=== PATIENT | female | born 1935 | race Caucasian/White ===

== ENCOUNTER → 2016-10-25 | Outpatient (CLI) | payer MEDICARE ==
[2016-10-25 10:10] LABS: ALANINE AMINOTRANSFERASE 42 U/L (9-52); ALBUMIN 3.9 g/dL (3.5-5.0); ALKALINE PHOSPHATASE 111 U/L (38-126); ANION GAP 10 (5-19); ASPARTATE AMINO TRANSFERASE 47 U/L (14-36); BILIRUBIN,TOTAL 1.1 mg/dL (0.2-1.3); BLOOD UREA NITROGEN 18 mg/dL (7-20); CALCIUM 9.7 mg/dL (8.4-10.2); CARBON DIOXIDE 29 mmol/L (22-30); CHLORIDE 102 mmol/L (98-107); CHOLESTEROL 121.54 mg/dL (0-200); CREATININE RESULT 1.03 mg/dL (0.52-1.25); Direct HDL 47 mg/dL (>40); GLUCOSE 110 mg/dL (75-110); POTASSIUM 4.3 mmol/L (3.6-5.0); SODIUM 140.8 mmol/L (137-145); TOTAL PROTEIN 6.9 g/dL (6.3-8.2); TRIGLYCERIDES 155 mg/dL (<150)
[2016-10-25 10:21] LABS: DIRECT LDL 46 mg/dL (<100)
== END ==
LOC: OD 08:38
PROVIDERS: ATTEND Internal Medicine Cardiovascular Disease
DX: E78.00 Pure hypercholesterolemia, unspecified (principal); Z79.899 Other long term (current) drug therapy
CPT/HCPCS: 36415; 80048; 80061; 80076; 84443

== ENCOUNTER → 2016-11-18 | Outpatient (CLI) | payer MEDICARE | LOC: RAD 10:59 | PROVIDERS: ATTEND Internal Medicine Gastroenterology | DX: R14.0 Abdominal distension (gaseous) (principal); R10.9 Unspecified abdominal pain | CPT/HCPCS: 74000 ==

== ENCOUNTER → 2016-11-24 | Outpatient (CLI) | payer MEDICARE | LOC: RAD 12:39 | PROVIDERS: ATTEND Internal Medicine Gastroenterology | DX: R14.0 Abdominal distension (gaseous) (principal); R10.33 Periumbilical pain; R10.12 Left upper quadrant pain; K52.9 Noninfective gastroenteritis and colitis, unspecified | CPT/HCPCS: 74177; 82565 ==

== ENCOUNTER → 2016-12-12 | Outpatient (CLI) | payer MEDICARE ==
[2016-12-12 12:25] LABS: ABSOLUTE BASOPHILS # (AUTO) 0.1 10^3/uL (0.0-0.2); ABSOLUTE EOSINOPHILS # (AUTO) 0.4 10^3/uL (0.0-0.6); ABSOLUTE LYMPHOCYTES (AUTO) 0.8 10^3/uL (0.5-4.7); ABSOLUTE MONOCYTES (AUTO) 0.3 10^3/uL (0.1-1.4); ABSOLUTE NEUT (AUTO) 2.6 10^3/uL (1.7-8.2); BASOPHILS % (AUTO) 1.8 % (0-2); EOSINOPHILS % (AUTO) 9.9 % (0-6); HEMATOCRIT 34.5 % (36.0-47.0); HEMOGLOBIN 11.8 g/dL (12.0-15.5); HGB HCT DIFFERENCE 0.9; LYMPHOCYTES % (AUTO) 19.5 % (13-45); MEAN CORPUSCULAR HEMOGLOBIN 31.1 pg (27.0-33.4); MEAN CORPUSCULAR HGB CONC 34.1 g/dL (32.0-36.0); MEAN CORPUSCULAR VOLUME 91 fl (80-97); MONOCYTES % (AUTO) 6.2 % (3-13); RED BLOOD COUNT 3.78 10^6/uL (3.72-5.28); RED CELL DISTRIBUTION WIDTH 14.3 % (11.5-14.0); SEGMENTED NEUTROPHILS % (AUTO) 62.6 % (42-78); WHITE BLOOD COUNT 4.2 10^3/uL (4.0-10.5)
[2016-12-12 12:56] LABS: ALANINE AMINOTRANSFERASE 43 U/L (9-52); ALBUMIN 3.9 g/dL (3.5-5.0); ALKALINE PHOSPHATASE 109 U/L (38-126); ANION GAP 14 (5-19); ASPARTATE AMINO TRANSFERASE 48 U/L (14-36); BILIRUBIN,DIRECT 0.2 mg/dL (0.0-0.4); BILIRUBIN,TOTAL 1.2 mg/dL (0.2-1.3); BLOOD UREA NITROGEN 21 mg/dL (7-20); CALCIUM 9.2 mg/dL (8.4-10.2); CARBON DIOXIDE 24 mmol/L (22-30); CHLORIDE 102 mmol/L (98-107); CREATININE RESULT 0.91 mg/dL (0.52-1.25); GLUCOSE 249 mg/dL (75-110); POTASSIUM 4.1 mmol/L (3.6-5.0); SODIUM 140.2 mmol/L (137-145); TOTAL PROTEIN 6.6 g/dL (6.3-8.2)
== END ==
LOC: OD 10:56
PROVIDERS: ATTEND Family Medicine
DX: R73.9 Hyperglycemia, unspecified (principal); Z79.899 Other long term (current) drug therapy; Z79.82 Long term (current) use of aspirin
CPT/HCPCS: 36415; 80053; 83036; 84443; 85025

== ENCOUNTER 2016-12-22 19:23 | Emergency (ER) | payer MEDICARE ==
--- NOTE | 2016-12-22 20:28 | ER Document Report ---
ED General - General Chief Complaint: Abdominal Pain Stated Complaint: ABDOMINAL PAIN Time seen by provider: 20:27 Mode of Arrival: Ambulatory Information source: Patient TRAVEL OUTSIDE OF THE [place] IN LAST 30 DAYS: No - HPI Notes: Patient is a 81-year-old female history of irritable bowel syndrome constipation predominant hypertension hypercholesterolemia and glaucoma, status post PR 2006 coronary bypass surgery 2009 and cholecystectomy 2014 presents with report that she had recent cough congestion for the past week and was started upon cefuroxime, but she has a allergy to cephalosporins. The patient states from her irritable bowel syndrome she has chronic constipation but had 1 loose bowel movement after taking the cefuroxime and had similar upper abdominal crampy pain she's had in the past. She also reports some associated nausea but denies any vomiting. She reports no chest pain. Patient reports no bloody bowel movement, and she's only had the one single loose bowel movement. Patient had a negative CT scan of the abdomen and pelvis with the exception of some constipation on 11/24/16. Patient denies chest pain, SOB, fevers. - Related Data Allergies/Adverse Reactions: JUDI Inhibitors Allergy (Verified 12/22/16 20:12) hydromorphone [From Dilaudid] Allergy (Verified 12/22/16 20:12) metformin Allergy (Verified 12/22/16 20:12) Past Medical History - General Information source: Patient - Social History Smoking Status: Never Smoker Frequency of alcohol use: None Drug Abuse: None Lives with: Family Family History: Reviewed & Not Pertinent Review of Systems - Review of Systems Notes: REVIEW OF SYSTEMS: CONSTITUTIONAL : Denies fever, chills, or sweats. EENT: Denies eye, ear, throat, or mouth pain or symptoms. Denies throat, tongue, or mouth swelling or difficulty swallowing. Patient does report some upper congestion. CARDIOVASCULAR: Denies chest pain. Denies palpitations or racing or irregular heart beat. Denies ankle edema. RESPIRATORY: Denies shortness of breath, difficulty breathing, or wheezing. GASTROINTESTINAL: Denies distention. Denies vomiting. Denies blood in vomitus, stools, or per rectum. Denies black, tarry stools. Patient usually has chronic constipation. GENITOURINARY: Denies difficulty urinating, painful urination, burning, frequency, blood in urine, or discharge. FEMALE GENITOURINARY: Denies vaginal bleeding, heavy or abnormal periods, irregular periods. Denies vaginal discharge or odor. MUSCULOSKELETAL: Denies back or neck pain or stiffness. Denies joint pain or swelling. SKIN: Denies rash, lesions or sores. HEMATOLOGIC : Denies easy bruising or bleeding. LYMPHATIC: Denies swollen, enlarged glands. NEUROLOGICAL: Denies confusion or altered mental status. Denies passing out or loss of consciousness. Denies dizziness or lightheadedness. Denies headache. Denies weakness or paralysis or loss of use of either side. Denies problems with gait or speech. Denies sensory loss, numbness, or tingling. Denies seizures. PSYCHIATRIC: Denies anxiety or stress. Denies depression, suicidal ideation, or homicidal ideation. ALL OTHER SYSTEMS REVIEWED AND NEGATIVE. Dictation was performed using [employer] voice recognition software Physical Exam - Vital signs Vitals: BP 188/87 H 12/22/16 20:21 - Notes Notes: PHYSICAL EXAMINATION: GENERAL: Well-appearing, well-nourished and in no acute distress. HEAD: Atraumatic, normocephalic. EYES: Pupils equal round and reactive to light, extraocular movements intact, conjunctiva are normal. ENT: Nares patent, oropharynx clear without exudates. Moist mucous membranes. NECK: Normal range of motion, supple without lymphadenopathy LUNGS: Breath sounds coarse bilaterally and equal. No rales or rhonchi. Scant mid lung field wheeze noted. HEART: Regular rate and rhythm 1/6 systolic ejection murmur best auscultated over the apex. ABDOMEN: Soft, nontender, nondistended abdomen. No guarding, no rebound. No masses appreciated. Female : deferred Musculoskeletal: Normal range of motion, trace lower extremity edema. Negative Homans. No palpable cord. No cyanosis. NEUROLOGICAL: Cranial nerves grossly intact. Normal speech, normal gait. Normal sensory, motor exams PSYCH: Normal mood, normal affect. SKIN: Warm, Dry, normal turgor, no rashes or lesions noted. Course - Re-evaluation Re-evalutation: 12/22/16 23:25 After Zofran and morphine and Bentyl, the patient had relief for abdominal pain. On repeat exam there is no significant discomfort. After DuoNeb, repeat exam showed no significant wheezing. Patient will be given an albuterol metered-dose inhaler to take home with her. Given the reaction to multiple antibiotics, there is no current reason for the patient to be on a antibiotic with a negative chest x-ray, normal white blood cell count and no fever. We'll stop the cefuroxime. Likewise, given the interaction of Cipro with her amiodarone, this would also not be a good choice. This was also noted by the pharmacy that refused to fill the prescription that her regular practitioner had written previously. Given that the patient recently started Linzess, this will also be discontinued. No suggestion for bowel obstruction or pneumonia or pancreatitis or hepatitis or GI bleed or significant electrolyte imbalance or cardiac ischemia or CHF. 12/23/16 00:17 - Vital Signs Vital signs: Temp Pulse Resp BP Pulse Ox 12 204/76 H 98 12/22/16 20:30 12/22/16 20:30 12/22/16 20:30 - Laboratory Result Diagrams: 12/22/16 20:27 12/22/16 20:27 Laboratory results interpreted by me: 12/22/16 12/22/16 12/22/16 20:27 20:27 21:20 Eosinophils % 11.5 H Absolute Eosinophils 0.7 H BUN 27 H Est GFR ( Amer) 52 L Est GFR (Non-Af Amer) 43 L Glucose 137 H Direct Bilirubin 0.5 H AST 55 H Alkaline Phosphatase 138 H Ur Leukocyte Esterase LARGE H - EKG Interpretation by Me EKG shows normal: Sinus rhythm Rate: Bradycardia Additional EKG results interpreted by me: 12/22/16 20:56 EKG as interpreted by de showed sinus bradycardia heart rate of 50 with left ventricular hypertrophy. There is no gross evidence for acute PR or ischemia there was no old EKG available for comparison. Discharge - Discharge Clinical Impression: Upper respiratory infection Qualifiers: URI type: unspecified URI Qualified Code(s): J06.9 - Acute upper respiratory infection, unspecified IBS (irritable bowel syndrome) Qualifiers: Irritable bowel syndrome type: with constipation Qualified Code(s): K58.1 - Irritable bowel syndrome with constipation Abdominal pain Qualifiers: Abdominal location: epigastric Qualified Code(s): R10.13 - Epigastric pain COPD (chronic obstructive pulmonary disease) Qualifiers: COPD type: unspecified COPD Qualified Code(s): J44.9 - Chronic obstructive pulmonary disease, unspecified Condition: Stable Disposition: HOME, SELF-CARE Instructions: Upper Respiratory Illness ([facility]), Abdominal Pain ([facility]), Irritable Bowel Syndrome ([facility]), Chronic Obstructive Lung Disease ([facility]) Additional Instructions: Return to emergency Department in case of severe pain, fever, vomiting. Stop Linzess, and do not consider restarting it until at least 2 weeks later. Do not start taking Zoloft. Stop cefuroxime. [place] diet. Drink plenty of fluids. Prescriptions: Dicyclomine HCl [Bentyl 10 mg Capsule] 10 mg PO Q6HP PRN #20 capsule PRN Reason: Albuterol Sulfate [Proair HFA Inhalation Aerosol 8.5 gm MDI] 2 puff IH Q4H PRN # 1 mdi PRN Reason: Referrals: IRVING CAMPBELL MD [Primary Care Provider] - Follow up as needed
[2016-12-22] MEDS ORDERED: DICYCLOMINE HCL 10 MG CAPSULE PO ONE (20:53)
[2016-12-22] MEDS ORDERED: MORPHINE SULFATE 10 MG/ML INJ IV ONE (20:53)
[2016-12-22] MEDS ORDERED: ONDANSETRON HCL INJ/PF 4 MG/2 ML SDV IV ONE (20:53)
[2016-12-22] MEDS ORDERED: FAMOTIDINE INJ/PF 20 MG/2 ML SDV IV ONE (20:53)
[2016-12-22 21:01] LABS: ABSOLUTE EOSINOPHILS # (AUTO) 0.7 10^3/uL (0.0-0.6); ABSOLUTE LYMPHOCYTES (AUTO) 1.6 10^3/uL (0.5-4.7); ABSOLUTE MONOCYTES (AUTO) 0.5 10^3/uL (0.1-1.4); BASOPHILS % (AUTO) 0.7 % (0-2); EOSINOPHILS % (AUTO) 11.5 % (0-6); HEMOGLOBIN 12.8 g/dL (12.0-15.5); HGB HCT DIFFERENCE 0.4; LYMPHOCYTES % (AUTO) 27.7 % (13-45); MEAN CORPUSCULAR HEMOGLOBIN 30.7 pg (27.0-33.4); MEAN CORPUSCULAR HGB CONC 33.7 g/dL (32.0-36.0); MEAN CORPUSCULAR VOLUME 91 fl (80-97); MONOCYTES % (AUTO) 8.9 % (3-13); RED BLOOD COUNT 4.16 10^6/uL (3.72-5.28); RED CELL DISTRIBUTION WIDTH 13.9 % (11.5-14.0); SEGMENTED NEUTROPHILS % (AUTO) 51.2 % (42-78); WHITE BLOOD COUNT 5.8 10^3/uL (4.0-10.5)
[2016-12-22] MEDS ORDERED: IPRATROPIUM/ALBUTEROL 0.5-2.5 MG/3 ML AMPUL NEB ONE (21:03)
[2016-12-22 21:18] LABS: ALANINE AMINOTRANSFERASE 52 U/L (9-52); ALBUMIN 4.2 g/dL (3.5-5.0); ALKALINE PHOSPHATASE 138 U/L (38-126); ANION GAP 15 (5-19); ASPARTATE AMINO TRANSFERASE 55 U/L (14-36); BILIRUBIN,DIRECT 0.5 mg/dL (0.0-0.4); BILIRUBIN,TOTAL 1.2 mg/dL (0.2-1.3); BLOOD UREA NITROGEN 27 mg/dL (7-20); CALCIUM 9.6 mg/dL (8.4-10.2); CARBON DIOXIDE 26 mmol/L (22-30); CHLORIDE 99 mmol/L (98-107); GLUCOSE 137 mg/dL (75-110); LIPASE 268.5 U/L (23-300); POTASSIUM 4.4 mmol/L (3.6-5.0); SODIUM 140.4 mmol/L (137-145); TOTAL PROTEIN 7.7 g/dL (6.3-8.2)
[2016-12-22 22:00] LABS: APPEARANCE,URINE SLIGHTLY-CLOUDY; BILIRUBIN,URINE NEGATIVE (NEGATIVE); GLUCOSE, URINE NEGATIVE (NEGATIVE); KETONES,URINE NEGATIVE (NEGATIVE); LEUKOCYTE ESTERASE,URINE LARGE (NEGATIVE); NITRITE,URINE NEGATIVE (NEGATIVE); PROTEIN,URINE NEGATIVE (NEGATIVE); URINE SPECIFIC GRAVITY 1.009; UROBILINOGEN,URINE NEGATIVE mg/dL (<2.0)
[2016-12-22] MEDS ORDERED: ALBUTEROL SULFATE HFA (90 MCG/PUFF) 8 GM MDI (1 MDI/ER DISP) IH PRN (23:39)
[2016-12-23 00:30] VITALS: BP 152/90
--- NOTE | 2016-12-23 09:40 | EKG REPORT ---
SEVERITY:- ABNORMAL ECG - SINUS RHYTHM LEFT VENTRICULAR HYPERTROPHY : Confirmed by: Soren Colon 23-Dec-2016 09:39:05
== END 2016-12-23 00:30 | disposition home or self-care (01) ==
LOC: ER 19:23
DX: J06.9 Acute upper respiratory infection, unspecified (principal); K58.1 Irritable bowel syndrome with constipation; R10.13 Epigastric pain; J44.9 Chronic obstructive pulmonary disease, unspecified; R10.9 Unspecified abdominal pain; I10 Essential (primary) hypertension; E78.00 Pure hypercholesterolemia, unspecified; I25.2 Old myocardial infarction; H40.9 Unspecified glaucoma
CPT/HCPCS: 93005; 94640; 99284; 96374; 96375; 36415; 87086; 83690; 85025; 80053; 81001; 84484; 83880; 74022; 93010; A9270 ×2; J2270; J2405; S0028; J3490; J7620

== ENCOUNTER → 2017-01-02 | Outpatient (CLI) | payer MEDICARE ==
[2017-01-02 13:16] LABS: FOLATE > 20.00 ng/mL (>2.76)
== END ==
LOC: OD 10:33
PROVIDERS: ATTEND Family Medicine
DX: D64.9 Anemia, unspecified (principal); D55.9 Anemia due to enzyme disorder, unspecified
CPT/HCPCS: 36415; 82306; 82607; 82728; 82746; 83540; 83550

== ENCOUNTER 2017-01-15 15:32 | Emergency (ER) | payer MEDICARE ==
--- NOTE | 2017-01-15 16:57 | ER Document Report ---
ED Medical Screen (RME) - General Chief Complaint: Abdominal Pain Stated Complaint: ABDOMINAL PAIN Time Seen by Provider: 01/15/17 16:54 Notes: The patient is an 81-year-old female history of irritable bowel syndrome constipation predominant, hypertension, hypercholesterolemia and glaucoma, status post DC 2006 coronary bypass surgery 2009 and cholecystectomy 2014, 2 days of mid-epigastric pain and suprapubic pain in a band-like distribution that worsened this morning. PE: Epigastric and suprapubic tenderness. NAD. I have greeted and performed a rapid initial assessment of this patient. A comprehensive ED assessment and evaluation of the patient, analysis of test results and completion of the medical decision making process will be conducted by additional ED providers. TRAVEL OUTSIDE OF THE [place] IN LAST 30 DAYS: No - Related Data Allergies/Adverse Reactions: JUDI Inhibitors Allergy (Verified 01/15/17 15:56) hydromorphone [From Dilaudid] Allergy (Verified 01/15/17 15:56) metformin Allergy (Verified 01/15/17 15:56) Past Medical History Renal/ Medical History: Denies: Hx Peritoneal Dialysis Physical Exam - Vital signs Vitals: Temp Pulse Resp BP Pulse Ox 97.9 F 50 L 19 197/63 H 98 01/15/17 15:56 01/15/17 15:56 01/15/17 15:56 01/15/17 15:56 01/15/17 15:56 Course - Vital Signs Vital signs: Temp Pulse Resp BP Pulse Ox 97.9 F 50 L 19 197/63 H 98 01/15/17 15:56 01/15/17 15:56 01/15/17 15:56 01/15/17 15:56 01/15/17 15:56
[2017-01-15 17:42] LABS: APPEARANCE,URINE SLIGHTLY-CLOUDY; BILIRUBIN,URINE NEGATIVE (NEGATIVE); GLUCOSE, URINE NEGATIVE (NEGATIVE); KETONES,URINE NEGATIVE (NEGATIVE); LEUKOCYTE ESTERASE,URINE LARGE (NEGATIVE); NITRITE,URINE NEGATIVE (NEGATIVE); PROTEIN,URINE NEGATIVE (NEGATIVE); URINE SPECIFIC GRAVITY 1.005; UROBILINOGEN,URINE NEGATIVE mg/dL (<2.0)
[2017-01-15] MEDS ORDERED: CEFTRIAXONE 1 GM/D5W RTU 50 ML IV ONE (17:58)
[2017-01-15 18:38] LABS: ABSOLUTE EOSINOPHILS # (AUTO) 0.3 10^3/uL (0.0-0.6); ABSOLUTE MONOCYTES (AUTO) 0.5 10^3/uL (0.1-1.4); ABSOLUTE NEUT (AUTO) 3.3 10^3/uL (1.7-8.2); BASOPHILS % (AUTO) 0.9 % (0-2); EOSINOPHILS % (AUTO) 6.4 % (0-6); HEMOGLOBIN 12.8 g/dL (12.0-15.5); HGB HCT DIFFERENCE 0.4; LYMPHOCYTES % (AUTO) 18.8 % (13-45); MEAN CORPUSCULAR HEMOGLOBIN 30.7 pg (27.0-33.4); MEAN CORPUSCULAR HGB CONC 33.8 g/dL (32.0-36.0); MEAN CORPUSCULAR VOLUME 91 fl (80-97); MONOCYTES % (AUTO) 10.3 % (3-13); RED BLOOD COUNT 4.18 10^6/uL (3.72-5.28); RED CELL DISTRIBUTION WIDTH 14.2 % (11.5-14.0); SEGMENTED NEUTROPHILS % (AUTO) 63.6 % (42-78); WHITE BLOOD COUNT 5.2 10^3/uL (4.0-10.5)
[2017-01-15 18:49] LABS: ALANINE AMINOTRANSFERASE 54 U/L (9-52); ALBUMIN 4.4 g/dL (3.5-5.0); ALKALINE PHOSPHATASE 122 U/L (38-126); ANION GAP 9 (5-19); ASPARTATE AMINO TRANSFERASE 68 U/L (14-36); BILIRUBIN,DIRECT 0.5 mg/dL (0.0-0.4); BILIRUBIN,TOTAL 1.4 mg/dL (0.2-1.3); BLOOD UREA NITROGEN 18 mg/dL (7-20); CALCIUM 9.9 mg/dL (8.4-10.2); CARBON DIOXIDE 28 mmol/L (22-30); CHLORIDE 102 mmol/L (98-107); CREATINE KINASE 191 U/L (30-135); CREATININE RESULT 0.99 mg/dL (0.52-1.25); GLUCOSE 119 mg/dL (75-110); LIPASE 158.6 U/L (23-300); POTASSIUM 4.9 mmol/L (3.6-5.0); TOTAL PROTEIN 7.8 g/dL (6.3-8.2)
--- NOTE | 2017-01-15 20:27 | ER Document Report ---
ED GI/ - General Mode of Arrival: Ambulatory Information source: Patient, Relative - daughter TRAVEL OUTSIDE OF THE [place] IN LAST 30 DAYS: No - HPI Patient complains to provider of: Abdominal pain Associated symptoms: Other - See above <JANINA MARTINEZ - Last Filed: 01/15/17 20:28> <AKIRAJOSUE BERNARDO - Last Filed: 01/15/17 22:49> - General Chief Complaint: Abdominal Pain Stated Complaint: ABDOMINAL PAIN Time Seen by Provider: 01/15/17 16:54 Notes: Patient is an 81 year old female, with a past medical history including IBS and cholecystectomy, who presents to the emergency department complaining of upper abdominal pain onset yesterday. Patient states that she was seen in the ED last month for similar complaints from antibiotics and was told to stop taking them and start on Linzess a week later. Patient reports the Linzess hasn't caused her to be sick or helped her pain which has been constant since yesterday afternoon. Patient also complains of back pain. Patient denies vomiting, diarrhea, dark stools, blood in stool, chest pain, and difficulty breathing. Patient takes Asa daily. (JANINA MARTINEZ) - Related Data Allergies/Adverse Reactions: JUDI Inhibitors Allergy (Verified 01/15/17 15:56) hydromorphone [From Dilaudid] Allergy (Verified 01/15/17 15:56) metformin Allergy (Verified 01/15/17 15:56) Past Medical History - General Information source: Patient - Social History Smoking Status: Unknown if Ever Smoked Family History: Reviewed & Not Pertinent - Past Medical History Cardiac Medical History: Reports: Hx Heart Attack, Hx Hypercholesterolemia, Hx Hypertension GI Medical History: Reports: Hx Gastroesophageal Reflux Disease, Hx Irritable Bowel Psychiatric Medical History: Reports: Hx Depression - anxiety Past Surgical History: Reports: Hx Cardiac Surgery - double bypass, 2 stents, Hx Cholecystectomy <JANINA MARTINEZ - Last Filed: 01/15/17 20:28> Review of Systems - Review of Systems Constitutional: No symptoms reported EENT: No symptoms reported Cardiovascular: No symptoms reported. denies: Chest pain Respiratory: No symptoms reported. denies: Other - difficulty breathing Gastrointestinal: See HPI, Abdominal pain. denies: Diarrhea, Nausea, Vomiting Genitourinary: No symptoms reported Female Genitourinary: No symptoms reported Musculoskeletal: See HPI, Back pain Skin: No symptoms reported Hematologic/Lymphatic: No symptoms reported Neurological/Psychological: No symptoms reported -: Yes All other systems reviewed and negative <JNAINA MARTINEZ - Last Filed: 01/15/17 20:28> Physical Exam - Vital signs Interpretation: Normal - General General appearance: Appears well, Alert - HEENT Head: Normocephalic, Atraumatic - Respiratory Respiratory status: No respiratory distress Chest status: Nontender Breath sounds: Normal Chest palpation: Normal - Cardiovascular Rhythm: Regular Heart sounds: Normal auscultation Murmur: No - Abdominal Inspection: Normal Distension: No distension Bowel sounds: Normal Tenderness: Tender - Mild epigastric tenderness to palpation Organomegaly: No organomegaly - Back Back: Normal, Nontender - Extremities General upper extremity: Normal inspection General lower extremity: Normal inspection - Neurological Neuro grossly intact: Yes Cognition: Normal Orientation: AAOx4 Sherri Coma Scale Eye Opening: Spontaneous [place] Coma Scale Verbal: Oriented [place] Coma Scale Motor: Obeys Commands Sherri Coma Scale Total: 15 Speech: Normal - Psychological Associated symptoms: Normal affect, Normal mood - Skin Skin Temperature: Warm Skin Moisture: Dry Skin Color: Normal <JANINA MARTINEZ - Last Filed: 01/15/17 20:28> Course - Laboratory Result Diagrams: 01/15/17 18:10 01/15/17 18:10 <JANINA MARTINEZ - Last Filed: 01/15/17 20:28> - Laboratory Result Diagrams: 01/15/17 18:10 01/15/17 18:10 - Diagnostic Test Radiology reviewed: Image reviewed, Reports reviewed <JOSUE CHAMPION - Last Filed: 01/15/17 22:49> - Re-evaluation Re-evalutation: 01/15/17 22:32 Patient is an 80-year-old female who comes in with epigastric pain. Patient has a history of abdominal pain and has been on Linzess recently. Dose was increased about a week ago. patient with no acute findings on blood work. I have reviewed the CT. I do not see any area of pre-fluid. Hemoglobin is stable. Vitals have been stable. Patient feels better after Carafate and Prevacid. She has these medications at home but had not taken any today. Patient feels better at this time. She is to take her medications as prescribed and follow-up with her Crankshaft Grinder, Dr. Crowley. And family understand and agree with plan. Return if worsening or concerning symptoms. Stable for discharge. (JOSUE CHAMPION) - Vital Signs Vital signs: Temp Pulse Resp BP Pulse Ox 97.9 F 50 L 19 197/63 H 98 01/15/17 15:56 01/15/17 15:56 01/15/17 15:56 01/15/17 15:56 01/15/17 15:56 - Laboratory Laboratory results interpreted by me: 01/15/17 01/15/17 01/15/17 17:15 18:10 18:10 RDW 14.2 H Eosinophils % 6.4 H Est GFR (Non-Af Amer) 54 L Glucose 119 H Total Bilirubin 1.4 H Direct Bilirubin 0.5 H AST 68 H ALT 54 H Creatine Kinase 191 H Ur Leukocyte Esterase LARGE H Discharge <JANINA MARTINEZ - Last Filed: 01/15/17 20:28> <JOSUE CHAMPION - Last Filed: 01/15/17 22:49> - Discharge Clinical Impression: Epigastric pain, Bradycardia Condition: Stable Disposition: HOME, SELF-CARE Instructions: Evaluation of Upper Abdominal Pain ([facility]) Additional Instructions: Please follow-up with your soccer ball assembler regarding the pain you are having. Please make sure you are taking Carafate as needed. Follow-up with her doctor regarding her slow heart rate although this does not seem to be causing any problems today. Referrals: IRVING CAMPBELL MD [Primary Care Provider] - Follow up tomorrow Scribe Attestation: 01/15/17 22:49 I personally performed the services described in the documentation, reviewed and edited the documentation which was dictated to the scribe in my presence, and it accurately records my words and actions. (JOSUE CHAMPION) Scribe Documentation - Scribe Written by Jocelyn:: jocelyn Hall, 01/15/172033 acting as scribe for :: Akira <JANINA MARTINEZ - Last Filed: 01/15/17 20:28>
[2017-01-15] MEDS ORDERED: SUCRALFATE 1 GM TABLET PO ONE (21:07)
[2017-01-15] MEDS ORDERED: LANSOPRAZOLE 30 MG TAB.RAP.DR PO ONE (21:08)
[2017-01-15 23:25] VITALS: BP 183/70
--- NOTE | 2017-01-16 09:01 | EKG REPORT ---
SEVERITY:- ABNORMAL ECG - JUNCTIONAL ESCAPE RHYTHM NONSPECIFIC ST-T CHANGES ANTEROLATERAL LEADS : Confirmed by: Abraham Mann MD 16-Jan-2017 09:01:00
== END 2017-01-15 23:25 | disposition home or self-care (01) ==
LOC: ER 15:32
DX: R10.13 Epigastric pain (principal); R00.1 Bradycardia, unspecified; K58.9 Irritable bowel syndrome, unspecified
CPT/HCPCS: 93005; 99284; 96365; 36415; 87086; 82550; 83690; 85025; 87088; 80053; 81001; 84484; 74177; 93010; A9270 ×2; J0696

== ENCOUNTER 2017-01-26 01:35 | Emergency (ER) | payer MEDICARE ==
--- NOTE | 2017-01-26 02:42 | ER Document Report ---
ED GI/ - General Chief Complaint: Abdominal Pain Stated Complaint: ABDOMINAL PAIN Time Seen by Provider: 01/26/17 02:05 Mode of Arrival: Ambulatory Information source: Patient, Relative - daughter Notes: 81 yo female's 3rd visit this month for upper abdominal pain all the way across. This episode started monday morning sharp/constate pain, bloated. Recent dx. of IBS with constipation dr. suarez. EGD in [place] 1 year ago for same symptoms resolved after stopping lexapro. Upper abdominal pain ongoing for years, cholecystectomy did not help. Yesterday tried carafate and bentyl 3 times e and mon, had 3 BM's yesterday after MOM monday night. Ate normally mon & mon. TRAVEL OUTSIDE OF THE [place]. IN LAST 30 DAYS: No - Related Data Allergies/Adverse Reactions: JUDI Inhibitors Allergy (Verified 01/26/17 04:09) azithromycin Allergy (Verified 01/26/17 04:09) cephalexin Allergy (Verified 01/26/17 04:09) chlorthalidone Allergy (Verified 01/26/17 04:09) doxycycline Allergy (Verified 01/26/17 04:09) hydrochlorothiazide Allergy (Verified 01/26/17 04:09) hydrocodone Allergy (Verified 01/26/17 04:09) hydromorphone [From Dilaudid] Allergy (Verified 01/26/17 04:09) metformin Allergy (Verified 01/26/17 04:09) nitrofurantoin [From Macrobid] Allergy (Verified 01/26/17 04:09) promethazine Allergy (Verified 01/26/17 04:09) lisenoys Allergy (Uncoded 01/26/17 04:09) Home Medications: Current Home Medications Amiodarone HCl [Cordarone 200 mg Tablet] 200 mg PO DAILY 01/26/17 [History] Aspirin [Ecotrin] 81 mg PO DAILY 01/26/17 [History] Dicyclomine HCl [Bentyl 10 mg Capsule] 10 mg PO Q6HP PRN 01/26/17 [History] Hydralazine HCl 100 mg PO BID 01/26/17 [History] Letrozole 2.5 mg PO DAILY 01/26/17 [History] Lorazepam [Ativan 0.5 mg Tablet] 0.5 mg PO TID 01/26/17 [History] Losartan Potassium 100 mg PO DAILY 01/26/17 [History] Mirtazapine 7.5 mg PO DAILY 01/26/17 [History] Pantoprazole Sodium 40 mg PO DAILY 01/26/17 [History] Rosuvastatin Calcium [Crestor 20 mg Tablet] 20 mg PO DAILY 01/26/17 [History] Sucralfate 1 gm PO QID PRN 01/26/17 [History] Timolol [Betimol] 5 ml OP QAM 01/26/17 [History] Travoprost (Benzalkonium) [Travatan 0.004% Eye Drop] 5 ml OP QPM 01/26/17 [ History] Past Medical History - General Information source: Patient, Relative - Daughter is - Social History Smoking Status: Never Smoker Frequency of alcohol use: None Drug Abuse: None Lives with: Family - Daughter Family History: Reviewed & Not Pertinent - Past Medical History Cardiac Medical History: Reports: Hx Heart Attack, Hx Hypercholesterolemia, Hx Hypertension Renal/ Medical History: Denies: Hx Peritoneal Dialysis GI Medical History: Reports: Hx Gastroesophageal Reflux Disease, Hx Irritable Bowel Psychiatric Medical History: Reports: Hx Depression - anxiety Past Surgical History: Reports: Hx Cardiac Surgery - double bypass, 2 stents, Hx Cholecystectomy Review of Systems - Review of Systems Constitutional: No symptoms reported EENT: No symptoms reported Cardiovascular: No symptoms reported Respiratory: No symptoms reported Gastrointestinal: See HPI Genitourinary: No symptoms reported Female Genitourinary: No symptoms reported Musculoskeletal: No symptoms reported Skin: No symptoms reported Hematologic/Lymphatic: No symptoms reported Neurological/Psychological: No symptoms reported Physical Exam - Vital signs Vitals: Temp Pulse Resp BP Pulse Ox 97.7 F 53 L 18 214/56 H 97 01/26/17 01:51 01/26/17 01:51 01/26/17 01:51 01/26/17 01:51 01/26/17 01:51 Interpretation: Normal - General General appearance: Appears well, Alert In distress: None - HEENT Head: Normocephalic, Atraumatic Eyes: Normal Pupils: PERRL Mucous membranes: Normal Pharynx: Normal Neck: Lymphadenopathy, Supple - Respiratory Respiratory status: No respiratory distress Chest status: Nontender Breath sounds: Normal Chest palpation: Normal - Cardiovascular Rhythm: Regular Heart sounds: Normal auscultation Murmur: No - Abdominal Inspection: Normal Distension: Tympanitic Bowel sounds: Normal Tenderness: Nontender. No: Tender, Guarding, Rebound Organomegaly: No organomegaly - Back Back: Normal, Nontender. No: CVA tenderness - Extremities General upper extremity: Normal inspection, Nontender, Normal color, Normal ROM , Normal temperature General lower extremity: Normal inspection, Nontender, Normal color, Normal ROM , Normal temperature, Normal weight bearing. No: Allison's sign - Neurological Neuro grossly intact: Yes Cognition: Normal Orientation: AAOx4 [place] Coma Scale Eye Opening: Spontaneous Sherri Coma Scale Verbal: Oriented [place]ri Coma Scale Motor: Obeys Commands [place] Coma Scale Total: 15 Speech: Normal Motor strength normal: LUE, RUE, LLE, RLE Sensory: Normal - Psychological Associated symptoms: Normal affect, Normal mood - Skin Skin Temperature: Warm Skin Moisture: Dry Skin Color: Normal Skin irregularity: negative: Rash Course - Re-evaluation Re-evalutation: 01/26/17 03:[address] Azul for evaluation. 01/26/17 05:30 Patient feels better, daughter and patient understand instructions consult Dr. Azul again, and she will be discharged home - Vital Signs Vital signs: Temp Pulse Resp BP Pulse Ox 98.4 F 84 14 188/70 H 97 01/26/17 06:25 01/26/17 06:25 01/26/17 06:25 01/26/17 06:02 01/26/17 06:25 - Laboratory Result Diagrams: 01/26/17 02:50 01/26/17 02:50 Laboratory results interpreted by me: 01/26/17 01/26/17 02:50 02:50 RBC 3.67 L Hgb 11.4 L Hct 33.5 L Monocytes % 13.2 H Eosinophils % 9.0 H Sodium 130.4 L Est GFR (Non-Af Amer) 52 L Glucose 119 H AST 70 H ALT 59 H Discharge - Discharge Clinical Impression: intestinal gas Abdominal pain Qualifiers: Abdominal location: upper abdomen, unspecified Qualified Code(s): R10.10 - Upper abdominal pain, unspecified Condition: Good Disposition: HOME, SELF-CARE Instructions: Abdominal Pain ([facility]), Acetaminophen Additional Instructions: over the counter Beano daily daily stool softner see dr. suarez no gas producing foods walk plenty of water daily to er if worse Referrals: IRVING CAMPBELL MD [Primary Care Provider] - Follow up as needed СВЕТЛАНА SUAREZ MD [ACTIVE STAFF] - Follow up as needed
[2017-01-26 03:02] LABS: ABSOLUTE BASOPHILS # (AUTO) 0.1 10^3/uL (0.0-0.2); ABSOLUTE EOSINOPHILS # (AUTO) 0.4 10^3/uL (0.0-0.6); ABSOLUTE LYMPHOCYTES (AUTO) 1.2 10^3/uL (0.5-4.7); ABSOLUTE MONOCYTES (AUTO) 0.6 10^3/uL (0.1-1.4); ABSOLUTE NEUT (AUTO) 2.2 10^3/uL (1.7-8.2); BASOPHILS % (AUTO) 1.4 % (0-2); HEMATOCRIT 33.5 % (36.0-47.0); HEMOGLOBIN 11.4 g/dL (12.0-15.5); HGB HCT DIFFERENCE 0.7; LYMPHOCYTES % (AUTO) 26.7 % (13-45); MEAN CORPUSCULAR HEMOGLOBIN 31.1 pg (27.0-33.4); MEAN CORPUSCULAR HGB CONC 34.1 g/dL (32.0-36.0); MEAN CORPUSCULAR VOLUME 91 fl (80-97); MONOCYTES % (AUTO) 13.2 % (3-13); RED BLOOD COUNT 3.67 10^6/uL (3.72-5.28); RED CELL DISTRIBUTION WIDTH 13.9 % (11.5-14.0); SEGMENTED NEUTROPHILS % (AUTO) 49.7 % (42-78); WHITE BLOOD COUNT 4.4 10^3/uL (4.0-10.5)
[2017-01-26] MEDS ORDERED: MAG HYDROX/AL HYDROX/SIMETH SUSP 30 ML UDCUP PO ONE (03:05)
[2017-01-26] MEDS ORDERED: SUCRALFATE SUSP 1 GM/10 ML UDCUP PO ONE (03:05)
[2017-01-26] MEDS ORDERED: ACETAMINOPHEN 325 MG TABLET PO ONE (03:06)
[2017-01-26] MEDS ORDERED: NORMAL SALINE 1000 ML 1,000 ML IV ONE (03:07)
[2017-01-26 03:16] LABS: ALANINE AMINOTRANSFERASE 59 U/L (9-52); ALBUMIN 3.9 g/dL (3.5-5.0); ALKALINE PHOSPHATASE 116 U/L (38-126); ANION GAP 8 (5-19); ASPARTATE AMINO TRANSFERASE 70 U/L (14-36); BILIRUBIN,DIRECT 0.3 mg/dL (0.0-0.4); BILIRUBIN,TOTAL 1.1 mg/dL (0.2-1.3); BLOOD UREA NITROGEN 19 mg/dL (7-20); CALCIUM 9.4 mg/dL (8.4-10.2); CARBON DIOXIDE 24 mmol/L (22-30); CHLORIDE 98 mmol/L (98-107); CREATININE RESULT 1.01 mg/dL (0.52-1.25); GLUCOSE 119 mg/dL (75-110); LIPASE 185.1 U/L (23-300); POTASSIUM 4.5 mmol/L (3.6-5.0); SODIUM 130.4 mmol/L (137-145)
--- NOTE | 2017-01-26 05:12 | RADIOLOGY REPORT (SQ) ---
EXAM DESCRIPTION: ACUTE ABDOMEN SERIES COMPLETED DATE/TIME: 01/26/2017 4:53 am REASON FOR STUDY: bloating, r/o bowel obstruction COMPARISON: CT abdomen and pelvis 01/15/2017, abdominal series 12/22/2016 NUMBER OF VIEWS: Three views. TECHNIQUE: Frontal chest, supine abdomen and upright/decubitus abdomen radiographic images acquired. LIMITATIONS: None. FINDINGS: CHEST: No consolidation, pleural effusion or pneumothorax. Median sternotomy wires are pr esent. FREE AIR: None. BOWEL GAS PATTERN: No dilated small bowel loops. No air-fluid levels. Gas and stool noted throughou t the colon. CALCIFICATIONS: No suspicious calcifications. HARDWARE: Surgical clips in the right upper quadrant. SOFT TISSUES: No gross mass or suggestion of organomegaly. BONES: There is thoracolumbar scoliosis. Multilevel degenerative changes are noted in the spine. IMPRESSION: Nonobstructive bowel gas pattern. TECHNICAL DOCUMENTATION: JOB ID: [id number] [email or web address] All Rights Reserved
[2017-01-26 06:14] VITALS: BP 188/70
== END 2017-01-26 06:25 | disposition home or self-care (01) ==
LOC: ER 01:35
DX: R14.0 Abdominal distension (gaseous) (principal); R10.10 Upper abdominal pain, unspecified; E78.00 Pure hypercholesterolemia, unspecified; I10 Essential (primary) hypertension; K21.9 Gastro-esophageal reflux disease without esophagitis; Z88.3 Allergy status to other anti-infective agents; Z88.6 Allergy status to analgesic agent; I25.2 Old myocardial infarction; Z90.49 Acquired absence of other specified parts of digestive tract
CPT/HCPCS: 99284; 96360; 96361; 36415; 83690; 85025; 82272; 80053; 83605; 74022; A9270; J7030

== ENCOUNTER 2017-04-05 17:51 | Emergency (ER) | payer MEDICARE ==
--- NOTE | 2017-04-05 18:53 | ER Document Report ---
ED Medical Screen (RME) - General Chief Complaint: High Blood Pressure Stated Complaint: BLOOD PRESSURE PROBLEMS Time Seen by Provider: 04/05/17 18:45 Notes: This 81-year-old female patient comes emergency room for elevated blood pressure. She took her regular medications this morning, she then went and had a nuclear med stress test which was a routine annual ordeal. She was asymptomatic. After she finished the stress test they gave her some Mountain Dew to drink. She normally avoids caffeine. Shortly after that she became somewhat giggly, and then about 430 reported not feeling well so check blood pressure it was 212/80. She took additional blood pressure medication and about 30 minutes later repeated the blood pressure at 212/101 and check the blood sugar and it was 170. She is a diet-controlled diabetic and does not normally have blood sugar that high. At this time she states she is actually starting to feel much better. Blood pressures now 172/82. I have greeted and performed a rapid initial assessment of this patient. A comprehensive ED assessment and evaluation of the patient, analysis of test results and completion of the medical decision making process will be conducted by additional ED providers. A CBC, Chem-12, cardiac enzymes, and hemoglobin A1c was done. The patient was observed while waiting for the lab work to see if she continued to improve. Lab work is unremarkable, however the blood pressure has now gone back up again to 214/80. TRAVEL OUTSIDE OF THE [place] IN LAST 30 DAYS: No - Related Data Allergies/Adverse Reactions: JUDI Inhibitors Allergy (Verified 04/05/17 18:02) azithromycin Allergy (Verified 04/05/17 18:02) cephalexin Allergy (Verified 04/05/17 18:02) chlorthalidone Allergy (Verified 04/05/17 18:02) doxycycline Allergy (Verified 04/05/17 18:02) hydrochlorothiazide Allergy (Verified 04/05/17 18:02) hydrocodone Allergy (Verified 04/05/17 18:02) hydromorphone [From Dilaudid] Allergy (Verified 04/05/17 18:02) metformin Allergy (Verified 04/05/17 18:02) nitrofurantoin [From Macrobid] Allergy (Verified 04/05/17 18:02) promethazine Allergy (Verified 04/05/17 18:02) lisenoys Allergy (Uncoded 04/05/17 18:02) Past Medical History - Past Medical History Cardiac Medical History: Reports: Hx Heart Attack, Hx Hypercholesterolemia, Hx Hypertension Renal/ Medical History: Denies: Hx Peritoneal Dialysis GI Medical History: Reports: Hx Gastroesophageal Reflux Disease, Hx Irritable Bowel Psychiatric Medical History: Reports: Hx Depression - anxiety Past Surgical History: Reports: Hx Cardiac Surgery - double bypass, 2 stents, Hx Cholecystectomy Physical Exam - Vital signs Vitals: Temp Pulse Resp BP Pulse Ox 97.5 F 51 L 16 223/70 H 97 04/05/17 18:06 04/05/17 18:06 04/05/17 18:06 04/05/17 18:06 04/05/17 18:06 Course - Vital Signs Vital signs: Temp Pulse Resp BP Pulse Ox 97.5 F 51 L 16 172/82 H 97 04/05/17 18:06 04/05/17 18:06 04/05/17 18:06 04/05/17 18:53 04/05/17 18:06 - Laboratory Result Diagrams: 04/05/17 19:00 04/05/17 19:00 Laboratory results interpreted by me: 04/05/17 04/05/17 19:00 19:00 Eosinophils % 15.6 H Absolute Eosinophils 0.9 H Sodium 134.6 L Est GFR ( Amer) 50 L Est GFR (Non-Af Amer) 41 L Glucose 153 H Direct Bilirubin 0.5 H AST 82 H ALT 71 H Alkaline Phosphatase 142 H
[2017-04-05 19:39] LABS: ABSOLUTE BASOPHILS # (AUTO) 0.1 10^3/uL (0.0-0.2); ABSOLUTE EOSINOPHILS # (AUTO) 0.9 10^3/uL (0.0-0.6); ABSOLUTE MONOCYTES (AUTO) 0.6 10^3/uL (0.1-1.4); ABSOLUTE NEUT (AUTO) 3.5 10^3/uL (1.7-8.2); BASOPHILS % (AUTO) 1.1 % (0-2); EOSINOPHILS % (AUTO) 15.6 % (0-6); HEMATOCRIT 37.4 % (36.0-47.0); HEMOGLOBIN 12.7 g/dL (12.0-15.5); HGB HCT DIFFERENCE 0.7; MEAN CORPUSCULAR HEMOGLOBIN 31.4 pg (27.0-33.4); MEAN CORPUSCULAR HGB CONC 33.9 g/dL (32.0-36.0); MEAN CORPUSCULAR VOLUME 93 fl (80-97); MONOCYTES % (AUTO) 9.2 % (3-13); RED BLOOD COUNT 4.05 10^6/uL (3.72-5.28); RED CELL DISTRIBUTION WIDTH 13.9 % (11.5-14.0); SEGMENTED NEUTROPHILS % (AUTO) 57.1 % (42-78); WHITE BLOOD COUNT 6.1 10^3/uL (4.0-10.5)
[2017-04-05 20:01] LABS: ALANINE AMINOTRANSFERASE 71 U/L (9-52); ALBUMIN 4.5 g/dL (3.5-5.0); ALKALINE PHOSPHATASE 142 U/L (38-126); ANION GAP 12 (5-19); ASPARTATE AMINO TRANSFERASE 82 U/L (14-36); BILIRUBIN,DIRECT 0.5 mg/dL (0.0-0.4); BILIRUBIN,TOTAL 1.2 mg/dL (0.2-1.3); BLOOD UREA NITROGEN 19 mg/dL (7-20); CALCIUM 9.7 mg/dL (8.4-10.2); CARBON DIOXIDE 23 mmol/L (22-30); CHLORIDE 100 mmol/L (98-107); CREATINE KINASE 121 U/L (30-135); CREATININE RESULT 1.25 mg/dL (0.52-1.25); GLUCOSE 153 mg/dL (75-110); POTASSIUM 4.3 mmol/L (3.6-5.0); SODIUM 134.6 mmol/L (137-145); TOTAL PROTEIN 7.6 g/dL (6.3-8.2)
[2017-04-05] MEDS ORDERED: CLONIDINE HCL 0.1 MG TABLET PO ONE (20:37)
--- NOTE | 2017-04-05 22:32 | ER Document Report ---
ED General - General Chief Complaint: High Blood Pressure Stated Complaint: BLOOD PRESSURE PROBLEMS Time Seen by Provider: 04/05/17 18:45 Notes: 81-year-old female with history of NE presents to the ED asymptomatic with hypertension. She had a nuclear stress test earlier today was injected with medication and then was given a Mountain Dew after the stress test. She then became anxious Dago and her pressure was high. About 4:00 she "crashed" and her daughter says that at that point she did not feel well. Never did she have chest pain headache shortness of breath palpitations all day today. Blood pressure was in the 180s-220s. Not taking her nighttime meds yet. Was brought to the ED. Was also worried about a blood sugar of 170. TRAVEL OUTSIDE OF THE [place] IN LAST 30 DAYS: No - Related Data Allergies/Adverse Reactions: JUDI Inhibitors Allergy (Verified 04/05/17 18:02) azithromycin Allergy (Verified 04/05/17 18:02) cephalexin Allergy (Verified 04/05/17 18:02) chlorthalidone Allergy (Verified 04/05/17 18:02) doxycycline Allergy (Verified 04/05/17 18:02) hydrochlorothiazide Allergy (Verified 04/05/17 18:02) hydrocodone Allergy (Verified 04/05/17 18:02) hydromorphone [From Dilaudid] Allergy (Verified 04/05/17 18:02) metformin Allergy (Verified 04/05/17 18:02) nitrofurantoin [From Macrobid] Allergy (Verified 04/05/17 18:02) promethazine Allergy (Verified 04/05/17 18:02) lisenoys Allergy (Uncoded 04/05/17 18:02) Past Medical History - General Information source: Patient - Social History Smoking Status: Never Smoker Chew tobacco use (# tins/day): No Frequency of alcohol use: None Drug Abuse: None Family History: Reviewed & Not Pertinent Patient has suicidal ideation: No Patient has homicidal ideation: No - Past Medical History Cardiac Medical History: Reports: Hx Heart Attack, Hx Hypercholesterolemia, Hx Hypertension Renal/ Medical History: Denies: Hx Peritoneal Dialysis GI Medical History: Reports: Hx Gastroesophageal Reflux Disease, Hx Irritable Bowel Psychiatric Medical History: Reports: Hx Depression - anxiety Past Surgical History: Reports: Hx Cardiac Surgery - double bypass, 2 stents, Hx Cholecystectomy - Immunizations Hx Diphtheria, Pertussis, Tetanus Vaccination: Yes Review of Systems - Review of Systems Notes: R REVIEW OF SYSTEMS GEN: Denies fever, chills, weight loss ENT: Denies sore throat, nasal discharge, ear pain EYES: Denies blurry vision, eye pain, discharge CV: Denies chest pain, palpitations, edema RESP: Denies cough, shortness of breath, wheezing GI: Denies abdominal pain, nausea, vomiting, diarrhea MSK: Denies joint pain/swelling, edema, SKIN: Denies rash, skin lesions LYMPH: Denies swollen glands/lymph nodes NEURO: Denies headache, focal weakness or numbness, dizziness PSYCH: Denies depression, suicidal or homicidal ideation PHYSICAL EXAMINATION General: No acute distress, well-nourished Head: Atraumatic, normocephalic ENT: Mouth normal, oropharynx moist, no exudates or tonsillar enlargement Eyes: Conjunctiva normal, pupils equal, lids normal Neck: No JVD, supple, no guarding CVS: Normal rate, regular rhythm, no murmurs Resp: No resp distress, equal and normal breath sounds bilaterally GI: Nondistended, soft, no tenderness to palpation, no rebound or guarding Ext: No deformities, no edema, normal range of motion in upper and lower ext Back: No CVA or midline TTP Skin: No rash, warm Lymphatic: No lymphadeopathy noted Neuro: Awake, alert. Face symmetric. GCS 15. Physical Exam - Vital signs Vitals: Temp Pulse Resp BP Pulse Ox 97.5 F 51 L 16 223/70 H 97 04/05/17 18:06 04/05/17 18:06 04/05/17 18:06 04/05/17 18:06 04/05/17 18:06 Course - Re-evaluation Re-evalutation: This is a 81-year-old lady presenting with resolved symptoms after a stress test and Mountain Dew. She likely had both an agitating injection to bring her heart rate up in an inordinate amount of caffeine consumption causing her symptoms and hypertension. She has not had any any ischemic type symptoms and does not have any signs or symptoms of hypertensive emergency at this time. Her labs are all normal sent from triage and she was given clonidine there. 04/05/17 22:30 04/05/17 23:21 Patient's blood pressure came down spontaneously in the emergency department and she feels totally asymptomatic. They are comfortable following up as an outpatient. Though we do not have the results of her stress test, it was done as a routine study and she is having no symptoms so I do not believe the results of that would change my disposition tonight. Patient told to take her normal nighttime blood pressure medicine and avoid caffeine. Insert discharge - Vital Signs Vital signs: Temp Pulse Resp BP Pulse Ox 97.9 F 46 L 18 159/60 H 99 04/05/17 22:42 04/05/17 22:42 04/05/17 22:42 04/05/17 22:42 04/05/17 22:42 - Laboratory Result Diagrams: 04/05/17 19:00 04/05/17 19:00 Laboratory results interpreted by me: 04/05/17 04/05/17 19:00 19:00 Eosinophils % 15.6 H Absolute Eosinophils 0.9 H Sodium 134.6 L Est GFR ( Amer) 50 L Est GFR (Non-Af Amer) 41 L Glucose 153 H Direct Bilirubin 0.5 H AST 82 H ALT 71 H Alkaline Phosphatase 142 H Discharge - Discharge Clinical Impression: Hypertension Qualifiers: Hypertension type: essential hypertension Qualified Code(s): I10 - Essential ( primary) hypertension Condition: Good Disposition: HOME, SELF-CARE Additional Instructions: Taking all of your normal medicines. Please avoid caffeine.
[2017-04-05 22:43] VITALS: BP 159/60
== END 2017-04-05 22:46 | disposition home or self-care (01) ==
LOC: ER 17:51
DX: I10 Essential (primary) hypertension (principal); I25.2 Old myocardial infarction; Z98.890 Other specified postprocedural states; Z88.8 Allergy status to other drugs, medicaments and biological substances; Z88.1 Allergy status to other antibiotic agents; Z88.5 Allergy status to narcotic agent; Z95.1 Presence of aortocoronary bypass graft; Z98.61 Coronary angioplasty status
CPT/HCPCS: 99283; 36415; 82550; 85025; 80053; 84484; 83036; A9270

== ENCOUNTER 2017-04-06 02:27 | Emergency (ER) | payer MEDICARE ==
--- NOTE | 2017-04-06 03:00 | ER Document Report ---
ED General - General Chief Complaint: Palpitations Stated Complaint: POSSIBLE BLOOD PRESSURE PROBLEM Notes: 81-year-old female seen earlier tonight by me for hypertension returns with awareness of her heartbeat. She went to sleep did not take her nighttime BP meds after being discharged and told to do so, and woke up with a unpleasant awareness of her heartbeat. Not irregular. It is now better. Her daughter measured her pressure and it was in the 170s and he returned. Despite nursing notes and triage sheet, the patient does not have chest pain and has not had chest pain today. No shortness of breath. BP in the ED is lower. TRAVEL OUTSIDE OF THE [place] IN LAST 30 DAYS: No - Related Data Allergies/Adverse Reactions: JUDI Inhibitors Allergy (Verified 04/06/17 02:41) azithromycin Allergy (Verified 04/06/17 02:41) cephalexin Allergy (Verified 04/06/17 02:41) chlorthalidone Allergy (Verified 04/06/17 02:41) doxycycline Allergy (Verified 04/06/17 02:41) hydrochlorothiazide Allergy (Verified 04/06/17 02:41) hydrocodone Allergy (Verified 04/06/17 02:41) hydromorphone [From Dilaudid] Allergy (Verified 04/06/17 02:41) metformin Allergy (Verified 04/06/17 02:41) nitrofurantoin [From Macrobid] Allergy (Verified 04/06/17 02:41) promethazine Allergy (Verified 04/06/17 02:41) lisenoys Allergy (Uncoded 04/05/17 18:02) Past Medical History - General Information source: Patient - Social History Smoking Status: Unknown if Ever Smoked Family History: Reviewed & Not Pertinent - Past Medical History Cardiac Medical History: Reports: Hx Heart Attack, Hx Hypercholesterolemia, Hx Hypertension Renal/ Medical History: Denies: Hx Peritoneal Dialysis GI Medical History: Reports: Hx Gastroesophageal Reflux Disease, Hx Irritable Bowel Psychiatric Medical History: Reports: Hx Depression - anxiety Past Surgical History: Reports: Hx Cardiac Surgery - double bypass, 2 stents, Hx Cholecystectomy - Immunizations Hx Diphtheria, Pertussis, Tetanus Vaccination: Yes Review of Systems - Review of Systems Notes: REVIEW OF SYSTEMS GEN: Denies fever, chills, weight loss ENT: Denies sore throat, nasal discharge, ear pain EYES: Denies blurry vision, eye pain, discharge CV: Denies chest pain, palpitations, edema RESP: Denies cough, shortness of breath, wheezing GI: Denies abdominal pain, nausea, vomiting, diarrhea MSK: Denies joint pain/swelling, edema, SKIN: Denies rash, skin lesions LYMPH: Denies swollen glands/lymph nodes NEURO: Denies headache, focal weakness or numbness, dizziness PSYCH: Denies depression, suicidal or homicidal ideation PHYSICAL EXAMINATION General: No acute distress, well-nourished Head: Atraumatic, normocephalic ENT: Mouth normal, oropharynx moist, no exudates or tonsillar enlargement Eyes: Conjunctiva normal, pupils equal, lids normal Neck: No JVD, supple, no guarding CVS: Normal rate, regular rhythm, no murmurs Resp: No resp distress, equal and normal breath sounds bilaterally GI: Nondistended, soft, no tenderness to palpation, no rebound or guarding Ext: No deformities, no edema, normal range of motion in upper and lower ext Back: No CVA or midline TTP Skin: No rash, warm Lymphatic: No lymphadeopathy noted Neuro: Awake, alert. Face symmetric. GCS 15. Physical Exam - Vital signs Vitals: Temp Pulse Resp BP Pulse Ox 98.0 F 56 L 18 169/61 H 97 04/06/17 02:41 04/06/17 02:41 04/06/17 02:41 04/06/17 02:41 04/06/17 02:41 Course - Re-evaluation Re-evalutation: 04/06/17 03:18 Repeat visit for hypertension and awareness of heartbeat. Heart rate is regular , pulmonary and cardiac exam are normal and blood pressure is decreased to 150s on my evaluation. Patient does not need repeat evaluation and is stable for discharge home. I asked her to see her regular doctor tomorrow check her pressure and talk about blood pressure med titration with her doctor. I have discussed with the patient there likely diagnosis, aftercare plan, follow -up plans and my usual and customary return precautions. They verbalized understanding of this. - Vital Signs Vital signs: Temp Pulse Resp BP Pulse Ox 98.0 F 50 L 16 152/58 H 98 04/06/17 02:41 04/06/17 03:15 04/06/17 03:15 04/06/17 03:15 04/06/17 03:15 Discharge - Discharge Clinical Impression: Hypertension Qualifiers: Hypertension type: essential hypertension Qualified Code(s): I10 - Essential ( primary) hypertension Condition: Good Disposition: HOME, SELF-CARE Additional Instructions: Blood pressure was still slightly elevated but it should come down on its own when you take her sleeping medicine and your blood pressure medicine. Please return to the ER if you have any chest pain.
[2017-04-06 03:16] VITALS: BP 152/58
--- NOTE | 2017-04-06 13:24 | EKG REPORT ---
SEVERITY:- ABNORMAL ECG - SINUS RHYTHM LVH WITH SECONDARY REPOLARIZATION ABNORMALITY BORDERLINE PROLONGED QT INTERVAL : Confirmed by: Soren Colon 06-Apr-2017 13:23:24
== END 2017-04-06 03:16 | disposition home or self-care (01) ==
LOC: ER 02:27
DX: I10 Essential (primary) hypertension (principal); T50.906A Underdosing of unspecified drugs, medicaments and biological substances, initial encounter; Z91.14 Patient's other noncompliance with medication regimen; R09.89 Other specified symptoms and signs involving the circulatory and respiratory systems; I25.2 Old myocardial infarction; Z79.899 Other long term (current) drug therapy; Z88.8 Allergy status to other drugs, medicaments and biological substances; Z88.1 Allergy status to other antibiotic agents; Z88.5 Allergy status to narcotic agent; Z95.1 Presence of aortocoronary bypass graft; Z98.61 Coronary angioplasty status
CPT/HCPCS: 93005; 93010; 99284

== ENCOUNTER → 2017-05-17 | Outpatient (CLI) | payer MEDICARE ==
[2017-05-17 11:19] LABS: ALANINE AMINOTRANSFERASE 51 U/L (9-52); ALBUMIN 3.8 g/dL (3.5-5.0); ALKALINE PHOSPHATASE 107 U/L (38-126); ASPARTATE AMINO TRANSFERASE 52 U/L (14-36); BILIRUBIN,DIRECT 0.5 mg/dL (0.0-0.4); BILIRUBIN,TOTAL 1.4 mg/dL (0.2-1.3); MAGNESIUM 2.2 mg/dL (1.6-2.3); TOTAL PROTEIN 6.3 g/dL (6.3-8.2)
--- NOTE | 2017-05-17 12:11 | RADIOLOGY REPORT (SQ) ---
EXAM DESCRIPTION: CHEST PA/LATERAL COMPLETED DATE/TIME: 05/17/2017 10:57 am REASON FOR STUDY: PAROXYSMAL ATRIAL FIBRILLATION COMPARISON: Chest films 12/22/2016, 04/26/2016 EXAM PARAMETERS: NUMBER OF VIEWS: two views TECHNIQUE: Digital Frontal and Lateral radiographic views of the chest acquired. RADIATION DOSE: NA LIMITATIONS: none FINDINGS: LUNGS AND PLEURA: No opacities, masses or pneumothorax. No pleural effusion. MEDIASTINUM AND HILAR STRUCTURES: No masses or contour abnormalities. HEART AND VASCULAR STRUCTURES: Heart normal size. No evidence for failure. Post sternotomy and CABG . BONES: Osteoporotic. No acute findings HARDWARE: Post sternotomy and CABG OTHER: No other significant finding. IMPRESSION: No acute findings TECHNICAL DOCUMENTATION: JOB ID: [id number] [employer]- All Rights Reserved
== END ==
LOC: OD 10:06
PROVIDERS: ATTEND Internal Medicine Cardiovascular Disease
DX: Z79.899 Other long term (current) drug therapy (principal); I48.0 Paroxysmal atrial fibrillation
CPT/HCPCS: 36415; 71020; 80076; 83735; 84443

== ENCOUNTER → 2017-05-17 | Outpatient (CLI) | payer MEDICARE ==
--- NOTE | 2017-05-19 12:55 | PULMONARY FUNCTION TEST ---
DATE OF SERVICE: 05/17/2017 THE VITAL CAPACITY IS NORMAL. THE EXPIRATORY FLOW RATES ARE NORMAL. THE FEV1/VC IS 65%, PREDICTED: 80% THE DLCO IS 11.8, 70% OF PREDICTED. IMPRESSION: GOOD PATIENT EFFORT. ALTHOUGH THE VC AND FEV1 ARE BOTH NORMAL, THE DECREASE IN FEV1/VC SUGGESTS A SLIGHT OBSTRUCTIVE DEFECT. DIFFUSING CAPACITY IS SLIGHTLY DECREASED. CC: NAZIA LIZARRAGA MD > DUONG
== END ==
LOC: RT 09:17
PROVIDERS: ATTEND Internal Medicine Cardiovascular Disease
DX: Z79.899 Other long term (current) drug therapy (principal); I48.0 Paroxysmal atrial fibrillation
CPT/HCPCS: 36415; 71020; 80076; 83735; 84443; 94010; 94729

== ENCOUNTER → 2017-06-02 | Outpatient (CLI) | payer MEDICARE ==
[2017-06-02 13:34] LABS: ALANINE AMINOTRANSFERASE 64 U/L (9-52); ALBUMIN 3.9 g/dL (3.5-5.0); ALKALINE PHOSPHATASE 116 U/L (38-126); AMYLASE 84 U/L (30-110); ASPARTATE AMINO TRANSFERASE 62 U/L (14-36); BILIRUBIN,DIRECT 0.5 mg/dL (0.0-0.4); BILIRUBIN,TOTAL 1.1 mg/dL (0.2-1.3); LIPASE 148.1 U/L (23-300); TOTAL PROTEIN 6.7 g/dL (6.3-8.2)
== END ==
LOC: OD 12:37
PROVIDERS: ATTEND Physician Assistant Surgical
DX: R10.13 Epigastric pain (principal); R11.0 Nausea; R94.5 Abnormal results of liver function studies
CPT/HCPCS: 36415; 80076; 82150; 83690

== ENCOUNTER 2017-06-03 19:53 | Emergency (ER) | payer MEDICARE ==
[2017-06-03] MEDS ORDERED: CLONIDINE HCL 0.1 MG TABLET PO ONE (21:05)
[2017-06-03] MEDS ORDERED: LORAZEPAM 1 MG TABLET PO ONE (21:06)
[2017-06-03] MEDS ORDERED: DICYCLOMINE HCL 20 MG TABLET PO ONE (21:07)
--- NOTE | 2017-06-03 21:08 | ER Document Report ---
ED GI/ - General Chief Complaint: Abdominal Pain Stated Complaint: ABDOMINAL PAIN Time Seen by Provider: 06/03/17 21:05 Notes: Patient is complaining of "terrible pain" in the epigastric region which comes and goes this past week. She was unable to sleep last night because of the pain. It is increasing. She had an excessively long bowel movement yesterday morning, but has not had any bowel movement since then. Does not feel constipated. The pain is worsened with eating. She did not eat anything Th because of the pain. She does not have any vomiting or diarrhea. No pains in the chest. She points specifically to one location where the xiphoid process is located. Patient is here with her daughter who relates that the patient has had ongoing problems with abdominal pains for a couple of years. She has had her gallbladder removed, but that has not lessened the pain. She was admitted to the hospital in [place] for 13 days in February,. She had similar pain to this and no one can find a reason for the pain. She was here and had CT scans done in both October and December, and neither of them showed any abnormality. Daughter says that she has had complete workups with all the studies that would be appropriate and no positive findings. She is scheduled to see Dr. Crowley, tobacco drummer, to do an upper endoscopy on Monday. Daughter says the patient has both Bentyl and Tylenol that she can take for her pain, but she refuses to take them. She has no explanation as to why she does not take medicines. Also has a history of hypertension and is on hydralazine 100 mg twice a day and no other blood pressure medicine. She has a very lengthy list of medications that she is "allergic to". She does not break out in hives or wheezing, but mostly just has abdominal pains with these medicines and therefore labels them as allergies. TRAVEL OUTSIDE OF THE [place] IN LAST 30 DAYS: No - Related Data Allergies/Adverse Reactions: JUDI Inhibitors Allergy (Verified 06/03/17 20:02) azithromycin Allergy (Verified 06/03/17 20:02) cephalexin Allergy (Verified 06/03/17 20:02) chlorthalidone Allergy (Verified 06/03/17 20:02) doxycycline Allergy (Verified 06/03/17 20:02) hydrochlorothiazide Allergy (Verified 06/03/17 20:02) hydrocodone Allergy (Verified 06/03/17 20:02) hydromorphone [From Dilaudid] Allergy (Verified 06/03/17 20:02) metformin Allergy (Verified 06/03/17 20:02) nitrofurantoin [From Macrobid] Allergy (Verified 06/03/17 20:02) promethazine Allergy (Verified 06/03/17 20:02) lisenoys Allergy (Uncoded 06/03/17 20:02) Past Medical History - Social History Smoking Status: Never Smoker Family History: Reviewed & Not Pertinent - Past Medical History Cardiac Medical History: Reports: Hx Heart Attack, Hx Hypercholesterolemia, Hx Hypertension Renal/ Medical History: Denies: Hx Peritoneal Dialysis GI Medical History: Reports: Hx Gastroesophageal Reflux Disease, Hx Irritable Bowel Psychiatric Medical History: Reports: Hx Depression - anxiety Past Surgical History: Reports: Hx Cardiac Surgery - double bypass, 2 stents, Hx Cholecystectomy - Immunizations Hx Diphtheria, Pertussis, Tetanus Vaccination: Yes Review of Systems - Review of Systems Notes: REVIEW OF SYSTEMS: CONSTITUTIONAL : Denies fever. EENT: Denies eye, ear, nose or mouth or throat pain or other symptoms. CARDIOVASCULAR: Denies chest pain. RESPIRATORY: Denies cough, chest congestion, or shortness of breath. GASTROINTESTINAL: See HPI. GENITOURINARY: Denies difficulty or painful urinating, urinary frequency, blood in urine. MUSCULOSKELETAL: Denies back or neck pain. Denies joint pain or swelling. SKIN: Denies rash or skin lesions. NEUROLOGICAL: Denies LOC or altered mental status. Denies headache. Denies sensory loss or motor deficits. ALL OTHER SYSTEMS REVIEWED AND NEGATIVE. Physical Exam - Vital signs Vitals: Temp Pulse Resp BP Pulse Ox 97.6 F 59 L 16 222/70 H 97 06/03/17 20:05 06/03/17 20:05 06/03/17 20:05 06/03/17 20:05 06/03/17 20:05 Interpretation: Hypertensive - Notes Notes: PHYSICAL EXAMINATION: GENERAL: Appears in pain. Complaining of the pain continuously throughout my exam. Points to the xiphoid as the location of primary pain. Blood pressure very high. HEAD: Atraumatic, normocephalic. EYES: Pupils equal round and reactive to light, extraocular movements intact. ENT: oropharynx clear without exudates. Moist mucous membranes. NECK: Normal range of motion, supple. LUNGS: Breath sounds clear and equal bilaterally. 100 is HEART: Regular rate and rhythm without murmurs. Please never ABDOMEN: Soft, at the xiphoid process. No guarding or rebound. No masses. No bruits heard. Remainder of abdomen is soft and nontender and unremarkable. BACK: No tenderness throughout entire back. EXTREMITIES: Normal range of motion without pain. Entry is only tender at the epigastrium NEUROLOGICAL: Normal speech, normal gait. Normal sensory, motor, and reflex exams. Awake, alert, and oriented x3. Cranial nerves normal. PSYCH: Normal mood, normal affect. SKIN: Warm, dry, no rashes. Course - Re-evaluation Re-evalutation: 06/04/17 00:22 Daughter says the patient has been until at home but will not take it. She has Tylenol at home but will take it either. Other medications will not be taken either. Bebe time and I was ready to discharge the patient, she had calmed quite a bit and did not seem to be in significant pain at the time of discharge. - Vital Signs Vital signs: Temp Pulse Resp BP Pulse Ox 97.6 F 59 L 14 119/52 L 97 06/03/17 20:05 06/03/17 20:05 06/03/17 23:32 06/03/17 23:32 06/03/17 23:32 - Laboratory Result Diagrams: 06/03/17 20:27 06/03/17 20:27 Laboratory results interpreted by me: 06/03/17 06/03/17 20:27 20:27 Hgb 11.7 L Hct 34.2 L Eosinophils % 9.7 H Sodium 133.2 L BUN 23 H Est GFR ( Amer) 56 L Est GFR (Non-Af Amer) 46 L Glucose 148 H Direct Bilirubin 0.5 H AST 61 H ALT 59 H Alkaline Phosphatase 154 H - Diagnostic Test Radiology reviewed: Image reviewed, Reports reviewed - Uncontrasted CT of the abdomen and pelvis is essentially normal. Discharge - Discharge Clinical Impression: Abdominal pain, Hypertension Condition: Stable Disposition: HOME, SELF-CARE Additional Instructions: ABDOMINAL PAIN: There are many causes of abdominal pain. Pain can mean a serious problem requiring surgery (such as appendicitis). It can also be an innocent problem that goes away on its own (such as a viral infection). Often, time must pass to determine the cause of pain. The physician does not feel that hospitalization is necessary, at present. Things may change within the next 24 hours. Call the doctor or come back for re- examination if any problems occur, such as: (1) Pain that becomes more severe, steady, or becomes concentrated in one specific area. Also, pain that is more severe with movement or coughing. (2) Vomiting that persists or becomes more frequent. (3) Blood in the vomitus, urine, or bowel movements. Blood in the stool may have a tarry or black appearance. (4) Shaking chills or fever greater than 100 degrees F. (5) The abdomen becomes more distended or swollen. (6) Bowel movements cease. (7) Failure to improve as expected. NORMAL EXAM AND WORKUP: At this time, your examination and workup show no significant abnormality. No significant abnormal physical findings are noted. All laboratory, EKG, and imaging (x-ray, CT scans, ultrasound) studies that were ordered show no significant abnormality. Although your examination and all studies that were ordered showed no significant abnormal finding, there are no examinations and no studies that are 100% accurate. There is always the possibility that some abnormality could exist and not be detected with physical examination or within the limits and capabilities of laboratory and other studies. You should return or follow up as you were instructed on your visit today for further evaluation if your symptoms do not resolve. Benzodiazepines You have been given a benzodiazepine medication. Examples of this type of medicine include Valium, Xanax, Librium, Ativan, and Halcion. Benzodiazepines have many uses. Medications of this type are used for insomnia, anxiety, muscle spasms, seizures, and drug and alcohol withdrawal. You may become very drowsy when you first take the medication. You should not drive or operate machinery while under its effects. Do not combine the medication with alcohol, or with any other medication without talking to your doctor. Do not take if without specific instruction from your enrober. Some benzodiazepines may have harmful interactions with oral antifungal medicines such as ketoconazole, itraconazole, and nefazodone. If you are taking an antifungal medicine, discuss this with your doctor before taking benzodiazepines. ANTISPASMODICS: You have been given a prescription for an antispasmodic medicine. This type of drug is used to decrease cramping and pain in the intestines. It is also used to decrease secretion of internal fluids (such as stomach acid in ulcer disease or pancreatic juice in pancreas disease). This medicine may cause drowsiness, especially with the first dose. Do not operate machinery or drive until all side effects have resolved. Do not combine with alcohol. Other common side effects include dry mouth and eyes. In older persons, antispasmodics can occasionally cause urinary retention, constipation, or trouble focusing the eyes. Glaucoma may be worsened by this medicine. Take your Bentyl 20 mg up to 4 times a day as needed for your abdominal pain. Take your Ativan, up to 1 mg, up to 4 times a day as needed for your abdominal pain pain. FOLLOW-UP CARE: If you have been referred to a physician for follow-up care, call the physician s office for an appointment as you were instructed or within the next two days. If you experience worsening or a significant change in your symptoms, notify the physician immediately or return to the Emergency Department at any time for re-evaluation. HIGH BLOOD PRESSURE REQUIRING TREATMENT: Your blood pressure is high. This is called "hypertension." Today's reading was 213/96 (normal is less than 140/90). Your history and exam suggest that this is not a temporary problem. You need treatment of your blood pressure. If left untreated, high blood pressure greatly increases your risk of heart attack and stroke. Please don't ignore this problem. If you have blood pressure medicine but aren't using it regularly, start taking it again. Some simple things you can do to help are: Get some aerobic exercise for at least 20 minutes on a daily basis. (See your doctor before beginning any new exercise program.) Eat a low-fat diet. Lose excess weight. Avoid salty foods and avoid adding salt to any of the foods you eat. Avoid diet pills, decongestants, "energizing" herbs, and other medicines that elevate blood pressure. There are many different medicines that treat blood pressure. If your medication causes unpleasant side effects, call your doctor. There are others you can try. Treating hypertension is a life-long investment in your health. CLONIDINE (CATAPRES): Clonidine is blood-pressure medicine. It works in your brain, making the nervous system relax the blood vessels. This medicine can also be used for symptoms of narcotic withdrawal. Clonidine frequently causes dry mouth, drowsiness, and dizziness. These symptoms go away as you continue to use it. Rest for the first couple of days. Don't drive or use machinery until you're back to normal. Never stop clonidine suddenly! There can be a "rebound" severe increase in blood pressure, headache, and agitation. Be sure you always have enough of the medicine. Call the doctor if you have any new symptoms such as skin rash, weakness, severe lightheadedness, chest pain, headache, or depression. Continue your current medications for your high blood pressure. If your blood pressure still goes up very high, approaching 200 or more, take 1 of the newly prescribed clonidine 0.1 mg orally up to twice a day as needed. FOLLOW-UP CARE: If you have been referred to a physician for follow-up care, call the physician s office for an appointment as you were instructed or within the next two days. If you experience worsening or a significant change in your symptoms, notify the physician immediately or return to the Emergency Department at any time for re-evaluation. Prescriptions: Clonidine HCl 0.1 mg PO BID #10 tablet
[2017-06-03 21:17] LABS: ABSOLUTE BASOPHILS # (AUTO) 0.1 10^3/uL (0.0-0.2); ABSOLUTE EOSINOPHILS # (AUTO) 0.5 10^3/uL (0.0-0.6); ABSOLUTE LYMPHOCYTES (AUTO) 1.4 10^3/uL (0.5-4.7); ABSOLUTE MONOCYTES (AUTO) 0.5 10^3/uL (0.1-1.4); ABSOLUTE NEUT (AUTO) 2.4 10^3/uL (1.7-8.2); BASOPHILS % (AUTO) 1.3 % (0-2); EOSINOPHILS % (AUTO) 9.7 % (0-6); HEMATOCRIT 34.2 % (36.0-47.0); HEMOGLOBIN 11.7 g/dL (12.0-15.5); HGB HCT DIFFERENCE 0.9; LYMPHOCYTES % (AUTO) 28.4 % (13-45); MEAN CORPUSCULAR HEMOGLOBIN 31.5 pg (27.0-33.4); MEAN CORPUSCULAR HGB CONC 34.3 g/dL (32.0-36.0); MEAN CORPUSCULAR VOLUME 92 fl (80-97); MONOCYTES % (AUTO) 10.5 % (3-13); RED BLOOD COUNT 3.72 10^6/uL (3.72-5.28); RED CELL DISTRIBUTION WIDTH 13.8 % (11.5-14.0); SEGMENTED NEUTROPHILS % (AUTO) 50.1 % (42-78); WHITE BLOOD COUNT 4.8 10^3/uL (4.0-10.5)
[2017-06-03 21:24] LABS: ALANINE AMINOTRANSFERASE 59 U/L (9-52); ALBUMIN 4.1 g/dL (3.5-5.0); ALKALINE PHOSPHATASE 154 U/L (38-126); ANION GAP 12 (5-19); ASPARTATE AMINO TRANSFERASE 61 U/L (14-36); BILIRUBIN,DIRECT 0.5 mg/dL (0.0-0.4); BLOOD UREA NITROGEN 23 mg/dL (7-20); CALCIUM 9.5 mg/dL (8.4-10.2); CARBON DIOXIDE 23 mmol/L (22-30); CHLORIDE 98 mmol/L (98-107); CREATININE RESULT 1.12 mg/dL (0.52-1.25); GLUCOSE 148 mg/dL (75-110); LIPASE 278.9 U/L (23-300); POTASSIUM 4.4 mmol/L (3.6-5.0); SODIUM 133.2 mmol/L (137-145)
[2017-06-03 21:36] LABS: CREATINE KINASE MB 1.35 ng/mL (<4.55)
[2017-06-03 21:37] LABS: TROPONIN I < 0.012 ng/mL
--- NOTE | 2017-06-03 23:26 | RADIOLOGY REPORT (SQ) ---
EXAM DESCRIPTION: CT ABD/PELVIS NO ORAL OR IV COMPLETED DATE/TIME: 06/03/2017 11:06 pm REASON FOR STUDY: Epigastric, xiphoid pain for months, getting worse COMPARISON: None. 11/24/2016 TECHNIQUE: CT scan of the abdomen and pelvis performed without intravenous or oral contrast. Images reviewed with lung, soft tissue, and bone windows. Reconstructed coronal and sagittal MPR images revi ewed. All images stored on PACS. All CT scanners at this facility use dose modulation, iterative reconstruction, and/or weight based d osing when appropriate to reduce radiation dose to as low as reasonably achievable (ALARA). [facility]: Dose Right [facility]: CareDose [facility]: Dose Right [facility]: Teradose 4D [facility]: [employer] RADIATION DOSE: Up-to-date CT equipment and radiation dose reduction techniques were employed. CTDIv ol: 7.6 mGy. DLP: 392 mGy-cm.mGy. LIMITATIONS: None. FINDINGS: LOWER CHEST: No significant findings. No nodules or infiltrates. NON-CONTRASTED LIVER, SPLEEN, ADRENALS: Evaluation limited by lack of IV contrast. No identified sign ificant masses. PANCREAS: No masses. No peripancreatic inflammatory changes. GALLBLADDER: No identified stones by CT criteria. No inflammatory changes to suggest cholecystitis. RIGHT KIDNEY AND URETER: No suspicious masses. Assessment limited by lack of IV contrast. Incidenta l note is made of a single cortical calcification. No hydronephrosis or hydroureter. LEFT KIDNEY AND URETER: No suspicious masses. Assessment limited by lack of IV contrast. No signifi cant calcifications. No hydronephrosis or hydroureter. AORTA AND RETROPERITONEUM: No aneurysm. No retroperitoneal masses or adenopathy. BOWEL AND PERITONEAL CAVITY: Scattered colonic diverticula without acute inflammatory change. APPENDIX: Normal. PELVIS, BLADDER, AND ABDOMINAL WALL:No abnormal masses. No free fluid. Bladder normal. BONES: No significant findings. OTHER: No other significant finding. IMPRESSION: NO SIGNIFICANT OR ACUTE PROCESS IN THE ABDOMEN OR PELVIS. COMMENT: Quality ID # [id number]: Final reports with documentation of one or more dose reduction techniques (e.g., Automated exposure control, adjustment of the mA and/or kV according to patient size, use of iterative reconstruction technique) TECHNICAL DOCUMENTATION: JOB ID: [id number]- All Rights Reserved
[2017-06-03 23:38] VITALS: BP 119/52
--- NOTE | 2017-06-05 06:24 | EKG REPORT ---
SEVERITY:- ABNORMAL ECG - SINUS RHYTHM LEFT VENTRICULAR HYPERTROPHY : Confirmed by: Angela Mathis MD 05-Jun-2017 06:24:16
== END 2017-06-04 | disposition home or self-care (01) ==
LOC: ER 19:53
DX: R10.9 Unspecified abdominal pain (principal); I10 Essential (primary) hypertension
CPT/HCPCS: 93005; 99284; 36415; 82553; 83690; 85025; 80053; 84484; 74176; 93010; A9270 ×3; J3490

== ENCOUNTER → 2017-06-14 | Outpatient (CLI) | payer MEDICARE ==
[2017-06-14 09:40] LABS: ABSOLUTE BASOPHILS # (AUTO) 0.1 10^3/uL (0.0-0.2); ABSOLUTE EOSINOPHILS # (AUTO) 0.6 10^3/uL (0.0-0.6); ABSOLUTE MONOCYTES (AUTO) 0.5 10^3/uL (0.1-1.4); ABSOLUTE NEUT (AUTO) 3.1 10^3/uL (1.7-8.2); BASOPHILS % (AUTO) 1.5 % (0-2); EOSINOPHILS % (AUTO) 11.2 % (0-6); HEMATOCRIT 34.4 % (36.0-47.0); HGB HCT DIFFERENCE 1.6; LYMPHOCYTES % (AUTO) 19.1 % (13-45); MEAN CORPUSCULAR VOLUME 92 fl (80-97); MONOCYTES % (AUTO) 9.4 % (3-13); RED BLOOD COUNT 3.76 10^6/uL (3.72-5.28); RED CELL DISTRIBUTION WIDTH 13.5 % (11.5-14.0); SEGMENTED NEUTROPHILS % (AUTO) 58.8 % (42-78); WHITE BLOOD COUNT 5.3 10^3/uL (4.0-10.5)
[2017-06-14 10:09] LABS: ALANINE AMINOTRANSFERASE 59 U/L (9-52); ALBUMIN 4.4 g/dL (3.5-5.0); ALKALINE PHOSPHATASE 110 U/L (38-126); ANION GAP 12 (5-19); ASPARTATE AMINO TRANSFERASE 58 U/L (14-36); BILIRUBIN,DIRECT 0.6 mg/dL (0.0-0.4); BILIRUBIN,TOTAL 1.6 mg/dL (0.2-1.3); BLOOD UREA NITROGEN 20 mg/dL (7-20); CALCIUM 9.9 mg/dL (8.4-10.2); CARBON DIOXIDE 27 mmol/L (22-30); CHLORIDE 95 mmol/L (98-107); CHOLESTEROL 145.09 mg/dL (0-200); CREATININE RESULT 1.06 mg/dL (0.52-1.25); Direct HDL 65 mg/dL (>40); GLUCOSE 117 mg/dL (75-110); POTASSIUM 4.8 mmol/L (3.6-5.0); SODIUM 134.1 mmol/L (137-145); TOTAL PROTEIN 7.2 g/dL (6.3-8.2); TRIGLYCERIDES 143 mg/dL (<150)
[2017-06-14 10:21] LABS: DIRECT LDL 55 mg/dL (<100)
== END ==
LOC: OD 08:46
PROVIDERS: ATTEND Family Medicine
DX: Z79.899 Other long term (current) drug therapy (principal); R73.9 Hyperglycemia, unspecified; E55.9 Vitamin D deficiency, unspecified; E78.5 Hyperlipidemia, unspecified
CPT/HCPCS: 36415; 80053; 80061; 82306; 83036; 85025

== ENCOUNTER 2017-06-20 09:16 | Emergency (ER) | payer MEDICARE ==
--- NOTE | 2017-06-20 09:36 | ER Document Report ---
ED General - General Chief Complaint: Nausea Stated Complaint: BODY WEAKNESS Time Seen by Provider: 06/20/17 09:29 Mode of Arrival: Medic Information source: Patient Cannot obtain history due to: Uncooperative TRAVEL OUTSIDE OF THE [place] IN LAST 30 DAYS: No - HPI Onset: Yesterday Onset/Duration: Gradual Quality of pain: Achy Associated symptoms: None Exacerbated by: Denies Relieved by: Denies Recently seen / treated by doctor: Yes - Here 2 weeks ago Notes: Patient is an 81-year-old female who arrives via EMS with complaints of generally not feeling well. She denies chest pain, shortness of breath. She does have chronic abdominal pain for which she was seen here several weeks ago with nothing acute noted. She is a rather poor historian and is reluctant to answer any questions. There is no family currently with her to assist with the history. I have reviewed her previous records to get more information. - Related Data Allergies/Adverse Reactions: JUDI Inhibitors Allergy (Verified 06/20/17 09:24) azithromycin Allergy (Verified 06/20/17 09:24) cephalexin Allergy (Verified 06/20/17 09:24) chlorthalidone Allergy (Verified 06/20/17 09:24) doxycycline Allergy (Verified 06/20/17 09:24) hydrochlorothiazide Allergy (Verified 06/20/17 09:24) hydrocodone Allergy (Verified 06/20/17 09:24) hydromorphone [From Dilaudid] Allergy (Verified 06/20/17 09:24) metformin Allergy (Verified 06/20/17 09:24) nitrofurantoin [From Macrobid] Allergy (Verified 06/20/17 09:24) promethazine Allergy (Verified 06/20/17 09:24) lisenoys Allergy (Uncoded 06/20/17 09:24) Home Medications: Current Home Medications Nifedipine [Nifedipine ER] 30 mg PO QHS 06/20/17 [History] Sertraline HCl [Sertraline HCl] 25 mg PO DAILY 06/20/17 [History] Travoprost [Travatan Z] 1 drop OU QHS 06/20/17 [History] Past Medical History - General Information source: [facility] Records Cannot obtain history due to: Uncooperative - Social History Smoking Status: Never Smoker Family History: Reviewed & Not Pertinent - Past Medical History Cardiac Medical History: Reports: Hx Heart Attack, Hx Hypercholesterolemia, Hx Hypertension Renal/ Medical History: Denies: Hx Peritoneal Dialysis GI Medical History: Reports: Hx Gastroesophageal Reflux Disease, Hx Irritable Bowel Psychiatric Medical History: Reports: Hx Depression - anxiety Past Surgical History: Reports: Hx Cardiac Surgery - double bypass, 2 stents, Hx Cholecystectomy - Immunizations Hx Diphtheria, Pertussis, Tetanus Vaccination: Yes Review of Systems - Review of Systems Constitutional: Weakness Cardiovascular: No symptoms reported Respiratory: No symptoms reported Gastrointestinal: No symptoms reported -: Yes All other systems reviewed and negative Physical Exam - Vital signs Interpretation: Normal - General General appearance: Appears well, Alert - HEENT Head: Normocephalic, Atraumatic Eyes: Normal Pupils: PERRL - Respiratory Respiratory status: No respiratory distress Chest status: Nontender Breath sounds: Normal Chest palpation: Normal - Cardiovascular Rhythm: Regular Heart sounds: Normal auscultation Murmur: No - Abdominal Inspection: Normal Distension: No distension Bowel sounds: Normal Tenderness: Nontender Organomegaly: No organomegaly - Back Back: Normal, Nontender - Extremities General upper extremity: Normal inspection, Nontender, Normal color, Normal ROM , Normal temperature General lower extremity: Normal inspection, Nontender, Normal color, Normal ROM , Normal temperature, Normal weight bearing. No: Allison's sign - Neurological Neuro grossly intact: Yes Cognition: Normal Orientation: AAOx4 Sherri Coma Scale Eye Opening: Spontaneous Sherri Coma Scale Verbal: Oriented [place] Coma Scale Motor: Obeys Commands [place] Coma Scale Total: 15 Speech: Normal Motor strength normal: LUE, RUE, LLE, RLE Sensory: Normal - Psychological Associated symptoms: Normal affect, Normal mood - Skin Skin Temperature: Warm Skin Moisture: Dry Skin Color: Normal Course - Re-evaluation Re-evalutation: 06/20/17 10:25 Results reviewed and discussed with patient and family at bedside. There is no indication for admission at this time. Per family, patient recently started on Zoloft. Patient has a primary care doctor's appointment at 11:00 today. Will discharge patient home so that she may make her primary care appointment. - Laboratory Result Diagrams: 06/20/17 09:32 06/20/17 09:32 Laboratory results interpreted by me: 06/20/17 09:32 Sodium 132.1 L Chloride 97 L Carbon Dioxide 21 L Est GFR (Non-Af Amer) 55 L Glucose 145 H Total Bilirubin 1.4 H Direct Bilirubin 0.5 H AST 62 H ALT 74 H Alkaline Phosphatase 133 H - Diagnostic Test Radiology reviewed: Image reviewed Radiology results interpreted by me: 06/20/17 10:07 CXR: NAD - EKG Interpretation by Me EKG shows normal: Sinus rhythm Rate: Normal Rhythm: NSR Additional EKG results interpreted by me: 06/20/17 10:[address] T changes, nothing acute Discharge - Discharge Clinical Impression: Weakness Condition: Good Disposition: HOME, SELF-CARE Instructions: Weakness ([facility]) Additional Instructions: Follow-up as scheduled with your primary care doctor today. Return to the emergency department if worse or for any other problems.
[2017-06-20 09:52] LABS: ABSOLUTE BASOPHILS # (AUTO) 0.1 10^3/uL (0.0-0.2); ABSOLUTE EOSINOPHILS # (AUTO) 0.3 10^3/uL (0.0-0.6); ABSOLUTE LYMPHOCYTES (AUTO) 1.7 10^3/uL (0.5-4.7); ABSOLUTE MONOCYTES (AUTO) 0.5 10^3/uL (0.1-1.4); ABSOLUTE NEUT (AUTO) 2.9 10^3/uL (1.7-8.2); BASOPHILS % (AUTO) 0.9 % (0-2); EOSINOPHILS % (AUTO) 5.1 % (0-6); HEMATOCRIT 37.4 % (36.0-47.0); HGB HCT DIFFERENCE 1.6; LYMPHOCYTES % (AUTO) 31.4 % (13-45); MEAN CORPUSCULAR HEMOGLOBIN 31.8 pg (27.0-33.4); MEAN CORPUSCULAR HGB CONC 34.6 g/dL (32.0-36.0); MEAN CORPUSCULAR VOLUME 92 fl (80-97); MONOCYTES % (AUTO) 8.5 % (3-13); RED BLOOD COUNT 4.07 10^6/uL (3.72-5.28); RED CELL DISTRIBUTION WIDTH 13.6 % (11.5-14.0); SEGMENTED NEUTROPHILS % (AUTO) 54.1 % (42-78); WHITE BLOOD COUNT 5.3 10^3/uL (4.0-10.5)
[2017-06-20 10:02] LABS: ALANINE AMINOTRANSFERASE 74 U/L (9-52); ALBUMIN 4.3 g/dL (3.5-5.0); ALKALINE PHOSPHATASE 133 U/L (38-126); ANION GAP 14 (5-19); ASPARTATE AMINO TRANSFERASE 62 U/L (14-36); BILIRUBIN,DIRECT 0.5 mg/dL (0.0-0.4); BILIRUBIN,TOTAL 1.4 mg/dL (0.2-1.3); BLOOD UREA NITROGEN 17 mg/dL (7-20); CALCIUM 9.7 mg/dL (8.4-10.2); CARBON DIOXIDE 21 mmol/L (22-30); CHLORIDE 97 mmol/L (98-107); CREATININE RESULT 0.97 mg/dL (0.52-1.25); GLUCOSE 145 mg/dL (75-110); POTASSIUM 4.6 mmol/L (3.6-5.0); SODIUM 132.1 mmol/L (137-145); TOTAL PROTEIN 7.2 g/dL (6.3-8.2)
--- NOTE | 2017-06-20 10:33 | RADIOLOGY REPORT (SQ) ---
EXAM DESCRIPTION: CHEST SINGLE VIEW COMPLETED DATE/TIME: 06/20/2017 10:06 am REASON FOR STUDY: weak COMPARISON: 05/17/2017 EXAM PARAMETERS: NUMBER OF VIEWS: One view. TECHNIQUE: Single frontal radiographic view of the chest acquired. RADIATION DOSE: NA LIMITATIONS: None. FINDINGS: LUNGS AND PLEURA: No opacities, masses or pneumothorax. No pleural effusion. MEDIASTINUM AND HILAR STRUCTURES: No masses. Contour normal. HEART AND VASCULAR STRUCTURES: Heart normal in size. Normal vasculature. BONES: No acute findings. HARDWARE: Sternotomy wires. OTHER: No other significant finding. IMPRESSION: NO ACUTE RADIOGRAPHIC FINDING IN THE CHEST. TECHNICAL DOCUMENTATION: JOB ID: [id number]
[2017-06-20] MEDS ORDERED: ONDANSETRON 4 MG TAB.RAPDIS PO ONE (11:09)
[2017-06-20 11:45] VITALS: BP 173/66
--- NOTE | 2017-06-20 16:33 | EKG REPORT ---
SEVERITY:- ABNORMAL ECG - SINUS RHYTHM NONSPECIFIC REPOL ABNORMALITY, DIFFUSE LEADS BORDERLINE PROLONGED QT INTERVAL : Confirmed by: Soren Colon 20-Jun-2017 16:32:00
== END 2017-06-20 11:46 | disposition home or self-care (01) ==
LOC: ER 09:16
DX: R53.1 Weakness (principal); R10.9 Unspecified abdominal pain; G89.29 Other chronic pain; I10 Essential (primary) hypertension; I25.2 Old myocardial infarction; F41.9 Anxiety disorder, unspecified; F32.9 Major depressive disorder, single episode, unspecified; Z88.8 Allergy status to other drugs, medicaments and biological substances; Z88.1 Allergy status to other antibiotic agents; Z88.5 Allergy status to narcotic agent; Z95.1 Presence of aortocoronary bypass graft; Z95.5 Presence of coronary angioplasty implant and graft
CPT/HCPCS: 93005; 99285; 36415; 83690; 85025; 80053; 84484; 71010; 93010; A9270; S0119

== ENCOUNTER 2017-07-03 14:52 | Observation (INO) | payer MEDICARE ==
[2017-07-03] MEDS ORDERED: NORMAL SALINE 1000 ML 1,000 ML IV PRN ×2 (15:17→18:02)
[2017-07-03] MEDS ORDERED: ONDANSETRON HCL INJ/PF 4 MG/2 ML SDV IV ONE (15:18)
--- NOTE | 2017-07-03 15:23 | ER Document Report ---
ED General - General Chief Complaint: Abdominal Pain Stated Complaint: WEAKNESS NAUSEA Time Seen by Provider: 07/03/17 15:16 Mode of Arrival: Medic Information source: Relative, Emergency Med Personnel Notes: 81 year old female with COPD, hypertension, chronic abdominal pain who is brought to the ER by EMS with generalized weakness, nausea, not tolerating oral fluids for the past few days. The patient's daughter states that the patient initially did well after the a colonoscopy 1 week ago but started having episodes of nausea and vomiting and for the past day has not gotten out of bed and has had nausea and vomiting and is not tolerating fluids or tolerating her medicines. TRAVEL OUTSIDE OF THE [place] IN LAST 30 DAYS: No - HPI Onset: Just prior to arrival Onset/Duration: Gradual Quality of pain: Dull Severity: Mild Pain Level: Denies Associated symptoms: Nausea, Vomiting. denies: Fever, Shortness of breath Exacerbated by: Denies Relieved by: Denies Similar symptoms previously: No Recently seen / treated by doctor: No - Related Data Allergies/Adverse Reactions: JUDI Inhibitors Allergy (Verified 06/20/17 09:24) azithromycin Allergy (Verified 06/20/17 09:24) cephalexin Allergy (Verified 06/20/17 09:24) chlorthalidone Allergy (Verified 06/20/17 09:24) doxycycline Allergy (Verified 06/20/17 09:24) hydrochlorothiazide Allergy (Verified 06/20/17 09:24) hydrocodone Allergy (Verified 06/20/17 09:24) hydromorphone [From Dilaudid] Allergy (Verified 06/20/17 09:24) metformin Allergy (Verified 06/20/17 09:24) nitrofurantoin [From Macrobid] Allergy (Verified 06/20/17 09:24) promethazine Allergy (Verified 06/20/17 09:24) lisenoys Allergy (Uncoded 06/20/17 09:24) Past Medical History - General Information source: Relative - Social History Smoking Status: Never Smoker Cigarette use (# per day): No Chew tobacco use (# tins/day): No - Thank you which Smoking Education Provided: No Frequency of alcohol use: None Drug Abuse: None Lives with: Family Family History: Reviewed & Not Pertinent Patient has suicidal ideation: No Patient has homicidal ideation: No - Past Medical History Cardiac Medical History: Reports: Hx Heart Attack, Hx Hypercholesterolemia, Hx Hypertension Pulmonary Medical History: Reports: Hx COPD Renal/ Medical History: Denies: Hx Peritoneal Dialysis GI Medical History: Reports: Hx Gastroesophageal Reflux Disease, Hx Irritable Bowel Psychiatric Medical History: Reports: Hx Depression - anxiety Past Surgical History: Reports: Hx Cardiac Surgery - double bypass, 2 stents, Hx Cholecystectomy - Immunizations Hx Diphtheria, Pertussis, Tetanus Vaccination: Yes Review of Systems - Review of Systems Constitutional: denies: Chills, Fever EENT: No symptoms reported Cardiovascular: No symptoms reported Respiratory: No symptoms reported Gastrointestinal: See HPI Genitourinary: No symptoms reported Female Genitourinary: No symptoms reported Musculoskeletal: No symptoms reported Skin: No symptoms reported Hematologic/Lymphatic: No symptoms reported Neurological/Psychological: No symptoms reported Physical Exam - Vital signs Vitals: Resp Pulse Ox 25 H 99 07/03/17 16:02 07/03/17 16:02 Notes: Physical exam: GENERAL: 81-year-old female alert, appears weak. Not a good historian. History is as per the patient's daughter who is at the bedside. HEAD: Atraumatic, normocephalic. EYES: Pupils equal round and reactive to light, extraocular movements intact, sclera anicteric, conjunctiva are normal. ENT: Dry mucous membranes. NECK: Normal range of motion, supple without obvious mass LUNGS: Breath sounds clear to auscultation bilaterally and equal. No wheezes rales or rhonchi. HEART: Regular rate and rhythm without murmurs, rubs or gallops. ABDOMEN: Soft, normoactive bowel sounds. No tenderness to palpation. No guarding, no rebound. No masses appreciated. EXTREMITIES: Normal range of motion, no pitting or edema. No clubbing or cyanosis. NEUROLOGICAL: Cranial nerves II through XII grossly intact. minimal speech moving all extremities. SKIN: Warm, Dry, normal turgor, no rashes or lesions noted. Course - Vital Signs Vital signs: Temp Pulse Resp BP Pulse Ox 21 H 180/75 H 95 07/03/17 16:04 07/03/17 16:04 07/03/17 16:04 - Laboratory Result Diagrams: 07/03/17 16:13 07/03/17 16:13 Laboratory results interpreted by me: 07/03/17 07/03/17 16:13 16:13 Sodium 131.2 L Chloride 95 L Carbon Dioxide 20 L Est GFR (Non-Af Amer) 56 L Glucose 135 H Total Bilirubin 1.5 H Direct Bilirubin 0.5 H AST 82 H ALT 79 H Alkaline Phosphatase 149 H Urine Ketones TRACE H Urine Urobilinogen 2.0 H - Diagnostic Test Radiology reviewed: Image reviewed, Reports reviewed - CT of the head shows no bleed. CT of the abdomen shows no obstruction, perforation or inflammation. - EKG Interpretation by Nv Rate: Normal Rhythm: NSR - EKG shows normal sinus rhythm with a ventricular rate of 73, no acute ST-T wave changes Discharge - Discharge Clinical Impression: Intractable vomiting with nausea, Generalized weakness Condition: Stable Disposition: ADMITTED OBSERVATION Admitting Provider: Hospitalist - Dr Sanford Unit Admitted: Medical Floor Referrals: IRVING CAMPBELL MD [Primary Care Provider] - Follow up as needed
--- NOTE | 2017-07-03 16:00 | RADIOLOGY REPORT (SQ) ---
EXAM DESCRIPTION: CHEST SINGLE VIEW COMPLETED DATE/TIME: 07/03/2017 3:44 pm REASON FOR STUDY: vomiting COMPARISON: AP chest 06/20/2017, two-view chest 04/26/2016 EXAM PARAMETERS: NUMBER OF VIEWS: One view. TECHNIQUE: Single frontal radiographic view of the chest acquired. RADIATION DOSE: NA LIMITATIONS: None. FINDINGS: LUNGS AND PLEURA: No opacities, masses or pneumothorax. No pleural effusion. MEDIASTINUM AND HILAR STRUCTURES: No masses. Contour normal. HEART AND VASCULAR STRUCTURES: Heart normal in size. Normal vasculature. BONES: Old sternotomy for CABG. Bones osteopenic. HARDWARE: None in the chest. OTHER: No other significant finding. IMPRESSION: NO ACUTE RADIOGRAPHIC FINDING IN THE CHEST. TECHNICAL DOCUMENTATION: JOB ID: [id number] [employer]- All Rights Reserved
[2017-07-03 16:31] LABS: ABSOLUTE BASOPHILS # (AUTO) 0.1 10^3/uL (0.0-0.2); ABSOLUTE EOSINOPHILS # (AUTO) 0.1 10^3/uL (0.0-0.6); ABSOLUTE MONOCYTES (AUTO) 0.6 10^3/uL (0.1-1.4); ABSOLUTE NEUT (AUTO) 4.4 10^3/uL (1.7-8.2); BASOPHILS % (AUTO) 1.2 % (0-2); EOSINOPHILS % (AUTO) 1.7 % (0-6); HEMATOCRIT 36.4 % (36.0-47.0); HEMOGLOBIN 12.7 g/dL (12.0-15.5); HGB HCT DIFFERENCE 1.7; LYMPHOCYTES % (AUTO) 15.7 % (13-45); MEAN CORPUSCULAR HEMOGLOBIN 31.6 pg (27.0-33.4); MEAN CORPUSCULAR HGB CONC 34.9 g/dL (32.0-36.0); MEAN CORPUSCULAR VOLUME 90 fl (80-97); MONOCYTES % (AUTO) 9.2 % (3-13); RED BLOOD COUNT 4.02 10^6/uL (3.72-5.28); RED CELL DISTRIBUTION WIDTH 13.2 % (11.5-14.0); SEGMENTED NEUTROPHILS % (AUTO) 72.2 % (42-78)
[2017-07-03 16:35] LABS: APPEARANCE,URINE CLEAR; BILIRUBIN,URINE NEGATIVE (NEGATIVE); GLUCOSE, URINE NEGATIVE (NEGATIVE); KETONES,URINE TRACE mg/dL (NEGATIVE); LEUKOCYTE ESTERASE,URINE NEGATIVE (NEGATIVE); NITRITE,URINE NEGATIVE (NEGATIVE); PROTEIN,URINE NEGATIVE (NEGATIVE); URINE SPECIFIC GRAVITY 1.008
[2017-07-03 16:49] LABS: ALANINE AMINOTRANSFERASE 79 U/L (9-52); ALBUMIN 4.3 g/dL (3.5-5.0); ALKALINE PHOSPHATASE 149 U/L (38-126); ANION GAP 16 (5-19); ASPARTATE AMINO TRANSFERASE 82 U/L (14-36); BILIRUBIN,DIRECT 0.5 mg/dL (0.0-0.4); BILIRUBIN,TOTAL 1.5 mg/dL (0.2-1.3); BLOOD UREA NITROGEN 14 mg/dL (7-20); CALCIUM 9.7 mg/dL (8.4-10.2); CARBON DIOXIDE 20 mmol/L (22-30); CHLORIDE 95 mmol/L (98-107); CREATININE RESULT 0.96 mg/dL (0.52-1.25); GLUCOSE 135 mg/dL (75-110); SODIUM 131.2 mmol/L (137-145)
[2017-07-03 16:50] LABS: LIPASE 187.6 U/L (23-300); TOTAL PROTEIN 7.2 g/dL (6.3-8.2)
--- NOTE | 2017-07-03 17:19 | RADIOLOGY REPORT (SQ) ---
EXAM DESCRIPTION: CT HEAD WITHOUT COMPLETED DATE/TIME: 07/03/2017 5:10 pm REASON FOR STUDY: morton, fall COMPARISON: None. TECHNIQUE: Axial images acquired through the brain without intravenous contrast. Images reviewed wi th bone, brain and subdural windows. Images stored on PACS. All CT scanners at this facility use dose modulation, iterative reconstruction, and/or weight based d osing when appropriate to reduce radiation dose to as low as reasonably achievable (ALARA). [facility]: Dose Right [facility]: CareDose [facility]: Dose Right [facility]: Teradose 4D [facility]: [employer] RADIATION DOSE: Up-to-date CT equipment and radiation dose reduction techniques were employed. CTDIv ol: 64.6 mGy. DLP: 1034 mGy-cm. mGy. LIMITATIONS: None. FINDINGS: VENTRICLES: Prominent. CEREBRUM: No masses. No hemorrhage. No midline shift. Areas of low density in the white matter mos t likely due to chronic micro-vascular ischemic change. No evidence for acute infarction. CEREBELLUM: No masses. No hemorrhage. No alteration of density. No evidence for acute infarction. EXTRAAXIAL SPACES: Mild age-related involutional change. No fluid collections. No masses. ORBITS AND GLOBE: No intra- or extraconal masses. Normal contour of globe without masses. CALVARIUM: No fracture. PARANASAL SINUSES: No fluid or mucosal thickening. SOFT TISSUES: No mass or hematoma. OTHER: No other significant finding. IMPRESSION: MILD CHRONIC CHANGES OF ATROPHY AND MICROVASCULAR ISCHEMIA. NO ACUTE PROCESS. EVIDENCE OF ACUTE STROKE: NO. TECHNICAL DOCUMENTATION: JOB ID: [id number] Quality ID # [id number]: Final reports with documentation of one or more dose reduction techniques (e.g., Au tomated exposure control, adjustment of the mA and/or kV according to patient size, use of iterative reconstruction technique) 2010 [employer]- All Rights Reserved
--- NOTE | 2017-07-03 17:38 | RADIOLOGY REPORT (SQ) ---
EXAM DESCRIPTION: CT ABD/PELVIS WITH IV ONLY COMPLETED DATE/TIME: 07/03/2017 5:19 pm REASON FOR STUDY: abd pain COMPARISON: 01/15/2017 TECHNIQUE: CT scan of the abdomen and pelvis performed using helical scanning technique with dynamic intravenous contrast injection. No oral contrast. Images reviewed with lung, soft tissue, and bone windows. Reconstructed coronal and sagittal MPR images reviewed. Delayed images for evaluation of the urinary system also acquired. All images stored on PACS. All CT scanners at this facility use dose modulation, iterative reconstruction, and/or weight based d osing when appropriate to reduce radiation dose to as low as reasonably achievable (ALARA). [facility]: Dose Right [facility]: CareDose [facility]: Dose Right [facility]: Teradose 4D [facility]: [employer] CONTRAST TYPE AND DOSE: contrast/concentration: Isovue 370.00 mg/ml; Total Contrast Delivered: 58.0 ml; Total Saline Delivered: 36.0 ml RENAL FUNCTION: GFR > 60. RADIATION DOSE: Up-to-date CT equipment and radiation dose reduction techniques were employed. CTDIv ol: 9.6 - 14.4 mGy. DLP: 1129 mGy-cm.. LIMITATIONS: None. FINDINGS: LOWER CHEST: No significant findings. No nodules or infiltrates. LIVER: Normal size. No masses. No dilated ducts. SPLEEN: Normal size. No focal lesions. Stable small subcapsular fluid collection. PANCREAS: No masses. No significant calcifications. No adjacent inflammation or peripancreatic fluid collections. Pancreatic duct not dilated. GALLBLADDER: Surgically absent. ADRENAL GLANDS: No significant masses or asymmetry. RIGHT KIDNEY AND URETER: No solid masses. No significant calcifications. No hydronephrosis or hyd roureter. LEFT KIDNEY AND URETER: No solid masses. No significant calcifications. No hydronephrosis or hydr oureter. AORTA AND VESSELS: Dense atherosclerotic calcifications. No aneurysm. No dissection. Renal arteries, SMA, celiac without stenosis. RETROPERITONEUM: No retroperitoneal adenopathy, hemorrhage or masses. BOWEL AND PERITONEAL CAVITY: No masses or inflammatory changes. No free fluid or peritoneal masses. APPENDIX: Not visualized. PELVIS: No mass. No free fluid. Normal bladder. ABDOMINAL WALL: No masses. No hernias. BONES: Stable degenerative change without fracture or suspicious osseous lesion per OTHER: No other significant finding. IMPRESSION: NO ACUTE FINDINGS IDENTIFIED WITHIN THE ABDOMEN OR PELVIS. NO SIGNIFICANT CHANGE FROM P RIOR CT EXAMINATIONS. TECHNICAL DOCUMENTATION: JOB ID: [id number] Quality ID # [id number]: Final reports with documentation of one or more dose reduction techniques (e.g., Au tomated exposure control, adjustment of the mA and/or kV according to patient size, use of iterative reconstruction technique) 2010 [employer]- All Rights Reserved
[2017-07-03] MEDS ORDERED: ACETAMINOPHEN 325 MG TABLET PO PRN (18:23)
[2017-07-03] MEDS ORDERED: POTASSI CL 20 MEQ/D5NS 1L 20 MEQ/1,000 ML RTUINJ IV PRN (18:23)
[2017-07-03] MEDS ORDERED: HYDRALAZINE HCL INJ/PF 20 MG/1 ML SDV IV PRN (18:23)
[2017-07-03] MEDS ORDERED: ONDANSETRON HCL INJ/PF 4 MG/2 ML SDV IV PRN (18:23)
[2017-07-03] MEDS ORDERED: MORPHINE SULFATE 10 MG/ML INJ IV ONE (18:36)
[2017-07-03] MEDS ORDERED: LORAZEPAM INJ 2 MG/1 ML VIAL IV PRN (18:36)
[2017-07-03] MEDS ORDERED: MORPHINE SULFATE 10 MG/ML INJ IV PRN (18:36)
[2017-07-03] MEDS ORDERED: FENTANYL CITRATE INJ/PF 100 MCG/2 ML AMPUL IV PRN (18:42)
--- NOTE | 2017-07-03 18:49 | EKG REPORT ---
SEVERITY:- BORDERLINE ECG - SINUS RHYTHM BORDERLINE ST DEPRESSION, ANTEROLATERAL LEADS : Confirmed by: Abraham Mann MD 03-Jul-2017 18:48:46
[2017-07-03] MEDS ORDERED: NITROGLYCERIN 2% OINTMENT 1 GM PACKET TP ONE (19:00)
[2017-07-03] MEDS ORDERED: AMLODIPINE BESYLATE 5 MG TABLET PO ONE (19:15)
[2017-07-03] MEDS: HEPARIN SOD (PORCINE) 5,000 UNIT/ML 1 ML SYRINGE SUBCUT SCH (22:37)
[2017-07-03] MEDS: METOCLOPRAMIDE HCL INJ/PF 10 MG/2 ML SDV IV SCH (22:38)
[2017-07-04] MEDS ORDERED: NITROGLYCERIN 2% OINTMENT 1 GM PACKET TP SCH
[2017-07-04] MEDS ORDERED: NORMAL SALINE 1000 ML 500 ML IV ONE (01:58)
--- NOTE | 2017-07-04 03:21 | PDOC H&P ---
History of Present Illness Admission Date/PCP: 07/03/17 18:02 IRVING CAMPBELL MD Patient complains of: Stomach worsesince last night History of Present Illness: KATIE BARBOSA is a 81 year old female arrived to ED via ambulance due to worsening of stomach pain since lastnight. Patient has been suffering from stomach pain for years.Her daughter (who is the one providing the information) states that patient had EGD and colonoscopy a week ago which was negative. Her primary opted to place her on zoloft. When this medication was added, patient began to complain of nausea, vomiting and poor. appetite. This medication was removed but there was no improvement of nausea. Her PCP advised for her to be taken to ED out of fear of dehydration. I was informed by patient's nurse that blood pressure was in the upper 190's on arrival. Daughter states that her PCP had added procardia recently due to that problem. Since patient was not able to tolerate po our service was contacted and prompted to admit for further management. Past Medical History Cardiac Medical History: Reports: Coronary Artery Disease, Myocardial Infarction , Hyperlipidema, Hypertension Pulmonary Medical History: Reports: Chronic Obstructive Pulmonary Disease (COPD) Neurological Medical History: Reports: None Endocrine Medical History: Denies: Diabetes Mellitus Type 2 GI Medical History: Reports: Gastroesophageal Reflux Disease Musculoskeltal Medical History: Reports: Arthritis Psychiatric Medical History: Reports: Depression - anxiety Past Surgical History Past Surgical History: Reports: Cholecystectomy, Other - conoscopy, EGD Social History Information Source: Relative Lives with: Family Smoking Status: Never Smoker Hx Recreational Drug Use: No Drugs: None - Advance Directive Resuscitation Status: Do Not Resuscitate Family History Family History: Reviewed & Not Pertinent Parental Family History Reviewed: Yes Children Family History Reviewed: Yes Sibling(s) Family History Reviewed.: Yes Medication/Allergy Home Medications: Amiodarone HCl [Cordarone 200 mg Tablet] 200 mg PO MOWEFR@1000 07/03/17 Aspirin [Ecotrin 81 mg EC Tablet] 81 mg PO DAILY 07/03/17 Cholecalciferol (Vitamin D3) [Vitamin D3 1000 Unit Tablet] 1,000 unit PO DAILY 07/03/17 Hydralazine HCl 100 mg PO BID@0900,1700 07/03/17 Letrozole [Femara 2.5 Mg Tablet] 2.5 mg PO DAILY 07/03/17 Lorazepam [Ativan 0.5 mg Tablet] 0.5 mg PO TID@0900,1700,2200 07/03/17 Losartan Potassium [Cozaar 100 mg Tablet] 100 mg PO DAILY 07/03/17 Mirtazapine [Remeron 15 mg Tablet] 7.5 mg PO QHS 07/03/17 Nifedipine [Procardia Xl 30 mg Tablet] 30 mg PO QHS 07/03/17 Pantoprazole Sodium [Protonix] 40 mg PO DAILY 07/03/17 Polyethylene Glycol 3350 [Miralax Powder 17 gm/Packet] 1 packet PO DAILY Rosuvastatin Calcium [Crestor 20 mg Tablet] 20 mg PO DAILY 07/03/17 Timolol Maleate [Timoptic 0.25% Oph Soln 5 Ml] 1 drop OU DAILY 07/03/17 Travoprost (Benzalkonium) [Travatan 0.004% Eye Drop] 1 drop OU QHS 07/03/17 Allergies/Adverse Reactions: JUDI Inhibitors Allergy (Verified 06/20/17 09:24) azithromycin Allergy (Verified 06/20/17 09:24) cephalexin Allergy (Verified 06/20/17 09:24) chlorthalidone Allergy (Verified 06/20/17 09:24) doxycycline Allergy (Verified 06/20/17 09:24) hydrochlorothiazide Allergy (Verified 06/20/17 09:24) hydrocodone Allergy (Verified 06/20/17 09:24) hydromorphone [From Dilaudid] Allergy (Verified 06/20/17 09:24) metformin Allergy (Verified 06/20/17 09:24) nitrofurantoin [From Macrobid] Allergy (Verified 06/20/17 09:24) promethazine Allergy (Verified 06/20/17 09:24) lisenoys Allergy (Uncoded 06/20/17 09:24) Review of Systems ROS unobtainable: Due to mental status Physical Exam Vital Signs: Temp Pulse Resp BP Pulse Ox 21 H 180/75 H 95 07/03/17 16:04 07/03/17 16:04 07/03/17 16:04 General appearance: PRESENT: mild distress, obese Head exam: PRESENT: atraumatic, normocephalic Eye exam: PRESENT: EOMI, PERRLA Mouth exam: PRESENT: dry mucosa, moist, neck supple Neck exam: PRESENT: full ROM. ABSENT: JVD, lymphadenopathy, tenderness, thyromegaly Respiratory exam: PRESENT: clear to auscultation gwyn Cardiovascular exam: PRESENT: RRR. ABSENT: diastolic murmur, systolic murmur Vascular exam: PRESENT: normal capillary refill GI/Abdominal exam: PRESENT: guarding, normal bowel sounds, soft, tenderness Rectal exam: PRESENT: deferred Extremities exam: ABSENT: joint swelling, pedal edema Neurological exam: PRESENT: alert Psychiatric exam: PRESENT: anxious, depressed Results Impressions: Chest X-Ray 07/03/17 15:17 IMPRESSION: NO ACUTE RADIOGRAPHIC FINDING IN THE CHEST. Abdomen/Pelvis CT 07/03/17 16:53 IMPRESSION: NO ACUTE FINDINGS IDENTIFIED WITHIN THE ABDOMEN OR PELVIS. NO SIGNIFICANT CHANGE FROM PRIOR CT EXAMINATIONS. Head CT 07/03/17 16:53 IMPRESSION: MILD CHRONIC CHANGES OF ATROPHY AND MICROVASCULAR ISCHEMIA. NO ACUTE PROCESS. EVIDENCE OF ACUTE STROKE: NO. Assessment & Plan - Diagnosis (1) Hyponatremia syndrome Is this a current diagnosis for this admission?: Yes Plan: Due to mild volume contraction. Will place on ivf's and trend. (2) Epigastric pain Is this a current diagnosis for this admission?: Yes Plan: Longstanding. Will trend troponin and provide pain management.. To try zyprexa for nause and order reglan. To place on nitro paste. CT scan negative. To keep NPO except for ice chips and medications. (3) HTN (hypertension) Qualifiers: Hypertension type: essential hypertension Qualified Code(s): I10 - Essential (primary) hypertension Is this a current diagnosis for this admission?: Yes Plan: Worsening likely due to pain. To continue outpatient regimen - Time Time Spent: 50 to 70 Minutes Medications reviewed and adjusted accordingly: Yes Anticipated discharge: Home - Inpatient Certification I certify that my determination is in accordance with my understanding of Medicare's requirements for reasonable and necessary INPATIENT services [42 CFR 412.3e].: Yes Medical Necessity: Need For IV Fluids, Need for Pain Control
[2017-07-04] MEDS: HEPARIN SOD (PORCINE) 5,000 UNIT/ML 1 ML SYRINGE SUBCUT SCH ×3 (05:30→22:39)
[2017-07-04 06:35] LABS: HEMATOCRIT 27.7 % (36.0-47.0); HGB HCT DIFFERENCE 1.4; MEAN CORPUSCULAR HEMOGLOBIN 32.1 pg (27.0-33.4); MEAN CORPUSCULAR HGB CONC 35.1 g/dL (32.0-36.0); MEAN CORPUSCULAR VOLUME 92 fl (80-97); RED BLOOD COUNT 3.02 10^6/uL (3.72-5.28); RED CELL DISTRIBUTION WIDTH 13.4 % (11.5-14.0); WHITE BLOOD COUNT 5.2 10^3/uL (4.0-10.5)
[2017-07-04 06:41] LABS: HEMOGLOBIN 9.7 g/dL (12.0-15.5)
[2017-07-04 06:46] LABS: ANION GAP 10 (5-19); BLOOD UREA NITROGEN 13 mg/dL (7-20); CALCIUM 8.2 mg/dL (8.4-10.2); CARBON DIOXIDE 18 mmol/L (22-30); CHLORIDE 108 mmol/L (98-107); CREATININE RESULT 1.07 mg/dL (0.52-1.25); GLUCOSE 108 mg/dL (75-110); POTASSIUM 4.6 mmol/L (3.6-5.0); SODIUM 135.7 mmol/L (137-145)
[2017-07-04] MEDS: METOCLOPRAMIDE HCL INJ/PF 10 MG/2 ML SDV IV SCH ×2 (08:12→12:01)
--- NOTE | 2017-07-04 09:22 | Physician Advisory Note ---
Physician Advisor ProgressNote .: [facility], I have reviewed the medical record for this patient. Physician Advisor Statement: STatus: Appropriately placed in Observation status initially. - Medicare pt, has now spent 1MN in hospital care. If she cannot be safely d/c 'd today, please document the clinical reasons/concerns (medical necessity) for needing a 2nd MN, & then may consider change to Inpatient status. Ex: "continued N/V/inability to tolerate po intake", "still acutely hyponatremic with worsened acute metabolic acidosis", "I AM CONCERNED ABOUT ____" ["worsening cardiac enzyme profile", "developing significant bradycardia", ...] Thanks! CK
[2017-07-04] MEDS ORDERED: HYDRALAZINE HCL 50 MG TABLET PO ONE (14:30)
[2017-07-04] MEDS ORDERED: AMLODIPINE BESYLATE 5 MG TABLET PO ONE (14:30)
[2017-07-04] MEDS ORDERED: LORAZEPAM 1 MG TABLET PO PRN (15:59)
[2017-07-04] MEDS ORDERED: OLANZAPINE 5 MG TABLET PO ONE (16:45)
[2017-07-04] MEDS: POTASSI CL 20 MEQ/D5NS 1L 20 MEQ/1,000 ML RTUINJ IV PRN (17:14)
--- NOTE | 2017-07-04 17:24 | PDOC PROGRESS REPORT ---
Subjective Progress Note for:: 07/04/17 Subjective:: Patient complained earlier of being hungry. Accordingly was talkative but demeanor changed after her granddaughters showed she changed. Blood pressure became elevated. Physical Exam Vital Signs: Temp Pulse Resp BP Pulse Ox 98.5 F 73 20 180/70 H 96 07/04/17 12:00 07/04/17 14:00 07/04/17 12:00 07/04/17 12:00 07/04/17 12:00 Intake & Output 07/03/17 07/04/17 07/05/17 06:59 06:59 06:59 Intake Total 0 Output Total 1300 Balance -1300 Weight 62 kg General appearance: PRESENT: no acute distress, well-developed, well-nourished Head exam: PRESENT: atraumatic, normocephalic Eye exam: PRESENT: EOMI, PERRLA Ear exam: PRESENT: normal external ear exam Mouth exam: PRESENT: moist, neck supple Neck exam: PRESENT: full ROM. ABSENT: JVD, tenderness Respiratory exam: PRESENT: chest wall tenderness Cardiovascular exam: PRESENT: systolic murmur. ABSENT: diastolic murmur - IRR Vascular exam: PRESENT: normal capillary refill GI/Abdominal exam: PRESENT: normal bowel sounds, soft. ABSENT: guarding, tenderness Extremities exam: ABSENT: joint swelling, pedal edema Neurological exam: PRESENT: alert, oriented to person, oriented to place, oriented to time Psychiatric exam: PRESENT: depressed Results Laboratory Results: 07/04/17 06:03 07/04/17 06:03 07/04/17 07/04/17 06:03 06:03 WBC 5.2 RBC 3.02 L Hgb 9.7 L D Hct 27.7 L MCV 92 MCH 32.1 MCHC 35.1 RDW 13.4 Plt Count 172 Sodium 135.7 L Potassium 4.6 Chloride 108 H Carbon Dioxide 18 L Anion Gap 10 BUN 13 Creatinine 1.07 Est GFR ( Amer) 59 L Est GFR (Non-Af Amer) 49 L Glucose 108 Calcium 8.2 L Magnesium 2.0 07/04/17 07/04/17 00:36 06:03 Troponin I 0.047 0.048 Impressions: Chest X-Ray 07/03/17 15:17 IMPRESSION: NO ACUTE RADIOGRAPHIC FINDING IN THE CHEST. Abdomen/Pelvis CT 07/03/17 16:53 IMPRESSION: NO ACUTE FINDINGS IDENTIFIED WITHIN THE ABDOMEN OR PELVIS. NO SIGNIFICANT CHANGE FROM PRIOR CT EXAMINATIONS. Head CT 07/03/17 16:53 IMPRESSION: MILD CHRONIC CHANGES OF ATROPHY AND MICROVASCULAR ISCHEMIA. NO ACUTE PROCESS. EVIDENCE OF ACUTE STROKE: NO. Assessment & Plan - Diagnosis (1) Hyponatremia syndrome Is this a current diagnosis for this admission?: Yes Plan: Due to mild volume contraction. Resolved (2) Epigastric pain Is this a current diagnosis for this admission?: Yes Plan: Longstanding. resolved with one dose of fentanyl IV. (3) HTN (hypertension) Qualifiers: Hypertension type: essential hypertension Qualified Code(s): I10 - Essential (primary) hypertension Is this a current diagnosis for this admission?: Yes Plan: uncontrolled as outpatient. To keep one more day to monitor blood pressure. (4) NSTEMI (non-ST elevated myocardial infarction) Plan: Due to uncontrolled blood pressure (5) Depressed Is this a current diagnosis for this admission?: Yes Plan: Paying a major role in presentation. Had extensive conversation with daughter in this regard. To add zyprexa to her regimen. - Time Time Spent with patient: 25-34 minutes Medications reviewed and adjusted accordingly: Yes Anticipated discharge: Home Within: within 24 hours - Inpatient Certification Based on my medical assessment, after consideration of the patient's comorbidities, presenting symptoms, or acuity I expect that the services needed warrant INPATIENT care.: No I certify that my determination is in accordance with my understanding of Medicare's requirements for reasonable and necessary INPATIENT services [42 CFR 412.3e].: Yes Medical Necessity: Need Close Monitoring Due to Risk of Patient Decompensation
[2017-07-04] MEDS ORDERED: OLANZAPINE 5 MG TABLET PO SCH (22:00)
[2017-07-04] MEDS ORDERED: AMLODIPINE BESYLATE 5 MG TABLET PO SCH (22:00)
[2017-07-04] MEDS: HYDRALAZINE HCL 50 MG TABLET PO SCH (22:38)
[2017-07-05] MEDS: POTASSI CL 20 MEQ/D5NS 1L 20 MEQ/1,000 ML RTUINJ IV PRN (04:25)
[2017-07-05] MEDS: HEPARIN SOD (PORCINE) 5,000 UNIT/ML 1 ML SYRINGE SUBCUT SCH (05:45)
[2017-07-05 06:00] LABS: ABSOLUTE EOSINOPHILS # (AUTO) 0.1 10^3/uL (0.0-0.6); ABSOLUTE LYMPHOCYTES (AUTO) 0.7 10^3/uL (0.5-4.7); ABSOLUTE MONOCYTES (AUTO) 0.4 10^3/uL (0.1-1.4); ABSOLUTE NEUT (AUTO) 3.6 10^3/uL (1.7-8.2); BASOPHILS % (AUTO) 0.9 % (0-2); EOSINOPHILS % (AUTO) 2.6 % (0-6); HEMATOCRIT 30.6 % (36.0-47.0); HEMOGLOBIN 10.7 g/dL (12.0-15.5); HGB HCT DIFFERENCE 1.5; LYMPHOCYTES % (AUTO) 13.8 % (13-45); MEAN CORPUSCULAR HEMOGLOBIN 32.2 pg (27.0-33.4); MEAN CORPUSCULAR HGB CONC 35.1 g/dL (32.0-36.0); MEAN CORPUSCULAR VOLUME 92 fl (80-97); MONOCYTES % (AUTO) 9.2 % (3-13); RED BLOOD COUNT 3.33 10^6/uL (3.72-5.28); RED CELL DISTRIBUTION WIDTH 13.3 % (11.5-14.0); SEGMENTED NEUTROPHILS % (AUTO) 73.5 % (42-78); WHITE BLOOD COUNT 4.9 10^3/uL (4.0-10.5)
[2017-07-05 06:17] LABS: ANION GAP 11 (5-19); BLOOD UREA NITROGEN 9 mg/dL (7-20); CALCIUM 9.2 mg/dL (8.4-10.2); CARBON DIOXIDE 21 mmol/L (22-30); CHLORIDE 107 mmol/L (98-107); CREATININE RESULT 0.83 mg/dL (0.52-1.25); GLUCOSE 152 mg/dL (75-110); MAGNESIUM 1.9 mg/dL (1.6-2.3); POTASSIUM 4.3 mmol/L (3.6-5.0)
[2017-07-05] MEDS: HYDRALAZINE HCL 50 MG TABLET PO SCH (09:49)
[2017-07-05 10:30] VITALS: BP 111/39
--- NOTE | 2017-07-05 16:35 | PDOC DISCHARGE SUMMARY ---
General - Admit/Disc Date/PCP Admission Date/Primary Care Provider: 07/03/17 18:24 IRVING CAMPBELL MD Discharge Date: 07/05/17 - Discharge Diagnosis (1) Hyponatremia syndrome Is this a current diagnosis for this admission?: Yes (2) Epigastric pain Is this a current diagnosis for this admission?: Yes (3) HTN (hypertension) Is this a current diagnosis for this admission?: Yes (5) Depressed Is this a current diagnosis for this admission?: Yes - Additional Information Resuscitation Status: Do Not Resuscitate Discharge Diet: As Tolerated Discharge Activity: Activity As Tolerated Home Medications: Amiodarone HCl [Cordarone 200 mg Tablet] 200 mg PO MOWEFR@1000 07/03/17 Aspirin [Ecotrin 81 mg EC Tablet] 81 mg PO DAILY 07/03/17 Cholecalciferol (Vitamin D3) [Vitamin D3 1000 Unit Tablet] 1,000 unit PO DAILY 07/03/17 Hydralazine HCl 100 mg PO BID@0900,1700 07/03/17 Letrozole [Femara 2.5 mg Tablet] 2.5 mg PO DAILY 07/03/17 Lorazepam [Ativan 0.5 mg Tablet] 0.5 mg PO TID@0900,1700,2200 07/03/17 Losartan Potassium [Cozaar 100 mg Tablet] 100 mg PO DAILY 07/03/17 Mirtazapine [Remeron 15 mg Tablet] 7.5 mg PO QHS 07/03/17 Nifedipine [Procardia XL 30 mg Tablet] 30 mg PO QHS 07/03/17 Pantoprazole Sodium [Protonix] 40 mg PO DAILY 07/03/17 Polyethylene Glycol 3350 [Miralax Powder 17 gm/Packet] 1 packet PO DAILY Rosuvastatin Calcium [Crestor 20 mg Tablet] 20 mg PO DAILY 07/03/17 Timolol Maleate [Timoptic 0.25% Oph Soln 5 ml] 1 drop OU DAILY 07/03/17 Travoprost (Benzalkonium) [Travatan 0.004% Eye Drop] 1 drop OU QHS 07/03/17 Olanzapine [Zyprexa 5 mg Tablet] 5 mg PO QHS #30 tablet 07/05/17 History of Present Illness History of Present Illness: KATIE BARBOSA is a 81 year old female arrived to ED via ambulance due to worsening of stomach pain since for one day. Patient has been suffering from stomach pain for years.Her daughter (who was the one providing the information) stated that patient had EGD and colonoscopy a week ago which was negative. Her primary opted to place her on zoloft. When this medication was added, patient began to complain of nausea, vomiting and poor appetite. This medication was removed but there was no improvement of nausea. Her PCP advised for her to be taken to ED out of fear of dehydration. I was informed by patient's nurse that blood pressure was in the upper 190's on arrival. Daughter stated that her PCP had added procardia recently due to that problem. Since patient was not able to tolerate po our service was contacted and was admitted under the hospitalist service. Hospital Course Hospital Course: On admission was treated and patient had an uneventful night. Patient was also placed on IV fluids with further correction of electrolyte abnormalities. She complained the following day after admission of feeling hungry however when offered the tray she refused. Discharge was halted. Blood pressure was elevated which was deemed mostly to be exacerbated by anxiety. Had an extensive conversation with patient's daughter who is the laboratory animal caretaker. It is my opinion that the daughter is having laboratory animal caretaker exhaustion. Patient demonstrate some manipulative behavior which had been witnessed by nursing staff and myself. We placed patient on Zyprexa for the purpose of stimulating the appetite and controlling the nausea. Patient's daughter encouraged her to eat in order for her to be able to go home. Patient was able to tolerate oral intake. Blood pressure remains labile but improved. Recommend primary care provider to proceed with psychiatric evaluation. Since patient had achieved maximum benefit of hospitalization stay prompted to discharge under stable condition. Physical Exam Vital Signs: Temp Pulse Resp BP Pulse Ox 98.3 F 71 16 160/57 H 97 07/05/17 03:29 07/05/17 03:29 07/05/17 03:29 07/05/17 03:29 07/05/17 03:29 Intake & Output 07/04/17 07/05/17 07/06/17 06:59 06:59 06:59 Intake Total 0 2642 Output Total 1300 Balance -1300 2642 Weight 62 kg 62 kg General appearance: PRESENT: no acute distress, cooperative Head exam: PRESENT: atraumatic, normocephalic Eye exam: PRESENT: EOMI, PERRLA Ear exam: PRESENT: normal external ear exam Mouth exam: PRESENT: moist, neck supple Neck exam: PRESENT: full ROM. ABSENT: JVD, lymphadenopathy, tenderness, thyromegaly Respiratory exam: PRESENT: clear to auscultation gwyn Cardiovascular exam: PRESENT: systolic murmur. ABSENT: diastolic murmur - IRR Vascular exam: PRESENT: normal capillary refill GI/Abdominal exam: PRESENT: normal bowel sounds, soft. ABSENT: guarding, tenderness Extremities exam: PRESENT: full ROM. ABSENT: pedal edema Musculoskeletal exam: PRESENT: ambulatory Neurological exam: PRESENT: alert, oriented to person, oriented to place, oriented to time Psychiatric exam: PRESENT: depressed Results Laboratory Results: 07/05/17 05:29 07/05/17 05:29 07/05/17 07/05/17 05:29 05:29 WBC 4.9 RBC 3.33 L Hgb 10.7 L Hct 30.6 L MCV 92 MCH 32.2 MCHC 35.1 RDW 13.3 Plt Count 175 Seg Neutrophils % 73.5 Lymphocytes % 13.8 Monocytes % 9.2 Eosinophils % 2.6 Basophils % 0.9 Absolute Neutrophils 3.6 Absolute Lymphocytes 0.7 Absolute Monocytes 0.4 Absolute Eosinophils 0.1 Absolute Basophils 0.0 Sodium 139.0 Potassium 4.3 Chloride 107 Carbon Dioxide 21 L Anion Gap 11 BUN 9 Creatinine 0.83 Est GFR ( Amer) > 60 Est GFR (Non-Af Amer) > 60 Glucose 152 H Calcium 9.2 Magnesium 1.9 07/04/17 07/04/17 00:36 06:03 Troponin I 0.047 0.048 Impressions: Chest X-Ray 07/03/17 15:17 IMPRESSION: NO ACUTE RADIOGRAPHIC FINDING IN THE CHEST. Abdomen/Pelvis CT 07/03/17 16:53 IMPRESSION: NO ACUTE FINDINGS IDENTIFIED WITHIN THE ABDOMEN OR PELVIS. NO SIGNIFICANT CHANGE FROM PRIOR CT EXAMINATIONS. Head CT 07/03/17 16:53 IMPRESSION: MILD CHRONIC CHANGES OF ATROPHY AND MICROVASCULAR ISCHEMIA. NO ACUTE PROCESS. EVIDENCE OF ACUTE STROKE: NO.
== END 2017-07-05 11:00 | disposition home or self-care (01) ==
LOC: ER 14:52 → EH 18:02 → UNDOADMOB 18:02 → EH 18:24 → 4W 19:38
PROVIDERS: ADMIT Pediatrics; ATTEND Pediatrics
DX: E87.1 Hypo-osmolality and hyponatremia (principal); R10.13 Epigastric pain; I10 Essential (primary) hypertension; I21.4 Non-ST elevation (NSTEMI) myocardial infarction; F32.9 Major depressive disorder, single episode, unspecified; F41.9 Anxiety disorder, unspecified; I25.10 Atherosclerotic heart disease of native coronary artery without angina pectoris; E78.5 Hyperlipidemia, unspecified; R11.2 Nausea with vomiting, unspecified; Z66 Do not resuscitate; J44.9 Chronic obstructive pulmonary disease, unspecified; I25.2 Old myocardial infarction; Z79.82 Long term (current) use of aspirin; Z79.899 Other long term (current) drug therapy; Z90.49 Acquired absence of other specified parts of digestive tract; Z95.1 Presence of aortocoronary bypass graft
CPT/HCPCS: 93005; 99285; 96361; 51702; 96374; 36415 ×3; 87040; 83690; 83735 ×2; 85025 ×2; 85027; 80048 ×2; 80053; 81001; 84484 ×2; 83605; 71010; 70450; 74177; 93010; A9270 ×6; J1644 ×3; J3010; J0360; J3480 ×3; J2765 ×2; J2405; J7030 ×2

== ENCOUNTER → 2017-08-08 | Outpatient (CLI) | payer MEDICARE ==
[2017-08-08 10:17] LABS: ALANINE AMINOTRANSFERASE 54 U/L (9-52); ALBUMIN 3.8 g/dL (3.5-5.0); ALKALINE PHOSPHATASE 135 U/L (38-126); ANION GAP 9 (5-19); ASPARTATE AMINO TRANSFERASE 54 U/L (14-36); BILIRUBIN,DIRECT 0.5 mg/dL (0.0-0.4); BLOOD UREA NITROGEN 20 mg/dL (7-20); CALCIUM 9.5 mg/dL (8.4-10.2); CARBON DIOXIDE 29 mmol/L (22-30); CHLORIDE 106 mmol/L (98-107); CREATININE RESULT 1.03 mg/dL (0.52-1.25); Direct HDL 54 mg/dL (>40); GLUCOSE 115 mg/dL (75-110); POTASSIUM 4.8 mmol/L (3.6-5.0); TOTAL PROTEIN 6.9 g/dL (6.3-8.2); TRIGLYCERIDES 122 mg/dL (<150)
[2017-08-08 10:27] LABS: DIRECT LDL 59 mg/dL (<100)
== END ==
LOC: OD 08:59
PROVIDERS: ATTEND Internal Medicine Cardiovascular Disease
DX: E78.2 Mixed hyperlipidemia (principal); I48.0 Paroxysmal atrial fibrillation; R94.5 Abnormal results of liver function studies
CPT/HCPCS: 36415; 80048; 80061; 80076; 84443

== ENCOUNTER → 2017-10-24 | Outpatient (CLI) | payer MEDICARE ==
[2017-10-24 13:18] LABS: ABSOLUTE BASOPHILS # (AUTO) 0.1 10^3/uL (0.0-0.2); ABSOLUTE EOSINOPHILS # (AUTO) 0.4 10^3/uL (0.0-0.6); ABSOLUTE MONOCYTES (AUTO) 0.5 10^3/uL (0.1-1.4); ABSOLUTE NEUT (AUTO) 3.6 10^3/uL (1.7-8.2); BASOPHILS % (AUTO) 1.2 % (0-2); EOSINOPHILS % (AUTO) 6.6 % (0-6); HEMATOCRIT 34.8 % (36.0-47.0); HEMOGLOBIN 11.5 g/dL (12.0-15.5); LYMPHOCYTES % (AUTO) 17.4 % (13-45); MEAN CORPUSCULAR VOLUME 94 fl (80-97); MONOCYTES % (AUTO) 8.4 % (3-13); PLATELET COUNT 177 10^3/uL (150-450); RED BLOOD COUNT 3.71 10^6/uL (3.72-5.28); RED CELL DISTRIBUTION WIDTH 13.8 % (11.5-14.0); SEGMENTED NEUTROPHILS % (AUTO) 66.4 % (42-78); TOTAL CELLS COUNTED % (AUTO) 100 %; WHITE BLOOD COUNT 5.5 10^3/uL (4.0-10.5)
[2017-10-24 13:43] LABS: ALANINE AMINOTRANSFERASE 41 U/L (9-52); ALBUMIN 4.1 g/dL (3.5-5.0); ALKALINE PHOSPHATASE 120 U/L (38-126); ANION GAP 13 (5-19); ASPARTATE AMINO TRANSFERASE 48 U/L (14-36); BILIRUBIN,DIRECT 0.2 mg/dL (0.0-0.4); BILIRUBIN,TOTAL 0.7 mg/dL (0.2-1.3); BLOOD UREA NITROGEN 28 mg/dL (7-20); CALCIUM 9.7 mg/dL (8.4-10.2); CARBON DIOXIDE 25 mmol/L (22-30); CHLORIDE 102 mmol/L (98-107); GLUCOSE 210 mg/dL (75-110); POTASSIUM 4.7 mmol/L (3.6-5.0); TOTAL PROTEIN 6.6 g/dL (6.3-8.2)
== END ==
LOC: OD 12:27
PROVIDERS: ATTEND Family Medicine
DX: E87.1 Hypo-osmolality and hyponatremia (principal); D64.89 Other specified anemias; I48.0 Paroxysmal atrial fibrillation; Z79.899 Other long term (current) drug therapy
CPT/HCPCS: 36415; 80048; 80076; 83735; 84443; 85025

== ENCOUNTER 2018-01-29 12:27 | Inpatient (IN) | payer MEDICARE ==
[2018-01-29 13:48] LABS: ABSOLUTE BASOPHILS # (AUTO) 0.1 10^3/uL (0.0-0.2); ABSOLUTE EOSINOPHILS # (AUTO) 0.2 10^3/uL (0.0-0.6); ABSOLUTE LYMPHOCYTES (AUTO) 1.4 10^3/uL (0.5-4.7); ABSOLUTE MONOCYTES (AUTO) 0.6 10^3/uL (0.1-1.4); ABSOLUTE NEUT (AUTO) 2.7 10^3/uL (1.7-8.2); BASOPHILS % (AUTO) 1.3 % (0-2); EOSINOPHILS % (AUTO) 4.7 % (0-6); HEMATOCRIT 31.7 % (36.0-47.0); LYMPHOCYTES % (AUTO) 28.4 % (13-45); MEAN CORPUSCULAR HEMOGLOBIN 32.3 pg (27.0-33.4); MEAN CORPUSCULAR HGB CONC 34.9 g/dL (32.0-36.0); MEAN CORPUSCULAR VOLUME 93 fl (80-97); MONOCYTES % (AUTO) 11.6 % (3-13); PLATELET COUNT 203 10^3/uL (150-450); RED BLOOD COUNT 3.42 10^6/uL (3.72-5.28); RED CELL DISTRIBUTION WIDTH 14.3 % (11.5-14.0); TOTAL CELLS COUNTED % (AUTO) 100 %; WHITE BLOOD COUNT 5.1 10^3/uL (4.0-10.5)
[2018-01-29 13:53] LABS: ALANINE AMINOTRANSFERASE 34 U/L (9-52); ALBUMIN 3.8 g/dL (3.5-5.0); ALKALINE PHOSPHATASE 116 U/L (38-126); ANION GAP 10 (5-19); ASPARTATE AMINO TRANSFERASE 52 U/L (14-36); BILIRUBIN,DIRECT 0.5 mg/dL (0.0-0.4); BILIRUBIN,TOTAL 0.6 mg/dL (0.2-1.3); BLOOD UREA NITROGEN 40 mg/dL (7-20); CALCIUM 9.6 mg/dL (8.4-10.2); CARBON DIOXIDE 23 mmol/L (22-30); CHLORIDE 102 mmol/L (98-107); GLUCOSE 93 mg/dL (75-110); LIPASE 118.2 U/L (23-300); POTASSIUM 5.2 mmol/L (3.6-5.0); SODIUM 135.2 mmol/L (137-145); TOTAL PROTEIN 7.2 g/dL (6.3-8.2)
--- NOTE | 2018-01-29 14:20 | ER Document Report ---
ED General - General Mode of Arrival: Ambulatory Information source: Patient TRAVEL OUTSIDE OF THE [place] IN LAST 30 DAYS: No <FROILAN CUELLAR - Last Filed: 01/29/18 19:17> <HANS LANDAVERDE - Last Filed: 01/29/18 20:09> - General Chief Complaint: Abdominal Pain Stated Complaint: FALL/ABDOMINAL PAIN Time Seen by Provider: 01/29/18 13:45 Notes: Patient is an 82 year old female that presents to the emergency department today with complaints of generalized weakness. Daughter at bedside states that when she went to check on the patient this morning, the patient's legs were dangled off the side of the bed like she had tried to get up but could not. When the daughter woke up the patient, she told her that she had tried to go to the restroom but could not due to generalized weakness. Daughter mentions that the patient seemed to have a left-sided facial droop. Daughter mentions that the patient had a fall a few days ago when going to the restroom and she fell on her right side and she has been complaining of a right lateral rib pain since. (FROILAN CUELLAR) - Related Data Allergies/Adverse Reactions: JUDI Inhibitors Allergy (Verified 06/20/17 09:24) azithromycin Allergy (Verified 06/20/17 09:24) cephalexin Allergy (Verified 06/20/17 09:24) chlorthalidone Allergy (Verified 06/20/17 09:24) doxycycline Allergy (Verified 06/20/17 09:24) hydrochlorothiazide Allergy (Verified 06/20/17 09:24) hydrocodone Allergy (Verified 06/20/17 09:24) hydromorphone [From Dilaudid] Allergy (Verified 06/20/17 09:24) metformin Allergy (Verified 06/20/17 09:24) nitrofurantoin [From Macrobid] Allergy (Verified 06/20/17 09:24) promethazine Allergy (Verified 06/20/17 09:24) lisenoys Allergy (Uncoded 06/20/17 09:24) Past Medical History - General Information source: [facility] Records - Social History Smoking Status: Former Smoker Cigarette use (# per day): No Frequency of alcohol use: None Drug Abuse: None Family History: Reviewed & Not Pertinent Patient has suicidal ideation: No Patient has homicidal ideation: No - Past Medical History Cardiac Medical History: Reports: Hx Coronary Artery Disease, Hx Heart Attack, Hx Hypercholesterolemia, Hx Hypertension Pulmonary Medical History: Reports: Hx COPD GI Medical History: Reports: Hx Gastroesophageal Reflux Disease, Hx Irritable Bowel Musculoskeltal Medical History: Reports Hx Arthritis Psychiatric Medical History: Reports: Hx Depression - anxiety Past Surgical History: Reports: Hx Cardiac Surgery - double bypass, 2 stents, Hx Cholecystectomy, Other - conoscopy, EGD - Immunizations Hx Diphtheria, Pertussis, Tetanus Vaccination: Yes <FROILAN CUELLAR - Last Filed: 01/29/18 19:17> Review of Systems - Review of Systems Constitutional: See HPI, Weakness EENT: No symptoms reported Cardiovascular: No symptoms reported Respiratory: No symptoms reported Gastrointestinal: No symptoms reported Genitourinary: No symptoms reported Female Genitourinary: No symptoms reported Musculoskeletal: See HPI, Other - right lateral rib pain Skin: No symptoms reported Hematologic/Lymphatic: No symptoms reported Neurological/Psychological: No symptoms reported -: Yes All other systems reviewed and negative <FROILAN CUELLAR - Last Filed: 01/29/18 19:17> Physical Exam <FROILAN CUELLAR - Last Filed: 01/29/18 19:17> <HANS LANDAVERDE - Last Filed: 01/29/18 20:09> - Vital signs Vitals: Temp Pulse Resp BP Pulse Ox 98.4 F 56 L 16 130/47 H 98 01/29/18 12:35 01/29/18 12:35 01/29/18 12:35 01/29/18 12:35 01/29/18 12:35 - Notes Notes: PHYSICAL EXAM GENERAL: Alert, interacts well. No acute distress. HEAD: Normocephalic, atraumatic. EYES: Pupils equal, round, and reactive to light. Extraocular movements intact. ENT: Oral mucosa moist, tongue midline. NECK: Full range of motion. Supple. Trachea midline. LUNGS: Clear to auscultation bilaterally, no wheezes, rales, or rhonchi. No respiratory distress. HEART: Regular rate and rhythm. No murmurs, gallops, or rubs. ABDOMEN: Soft, tenderness with palpation over the right lateral ribs over the anterior axillary line. Epigastric tenderness with palpation. Non-distended. Bowel sounds present in all 4 quadrants. No guarding, rigidity, or rebound. BACK: Tenderness with palpation over the thoracolumbar junction, no stepoff or deformity. EXTREMITIES: Moves all 4 extremities spontaneously. No edema, radial and dorsalis pedis pulses 2/4 bilaterally. No cyanosis. 2/5 lower extremity strength bilaterally, 4/5 upper extremity strength bilaterally. NEUROLOGICAL: Alert and oriented x3. Normal speech. No facial droop. PSYCH: Normal affect, normal mood. SKIN: Warm, dry, normal turgor. 2cm skin tear over unlar aspect of right wrist. (FROILAN CUELLAR) Course - Laboratory Result Diagrams: 01/29/18 12:20 01/29/18 12:20 <FROILAN CUELLAR - Last Filed: 01/29/18 19:17> - Laboratory Result Diagrams: 01/29/18 12:20 01/29/18 12:20 <HANS LANDAVERDE - Last Filed: 01/29/18 20:09> - Re-evaluation Re-evalutation: 01/29/18 16:22 CBC shows leukocytosis of 13.6, anemia with hemoglobin 11.5, CBC shows mild anemia with hemoglobin 11.0, CMP shows slightly elevated fasting at 5.2, patient does have acute renal failure with a BUN of 40 and a creatinine of 2.09 significantly increased from September of earlier this year otherwise unremarkable, urinalysis is surprisingly gravity of 1.012 and no ketones or urinary tract infection. I did order CT scan of the chest abdomen pelvis is some concern by the tenderness over her right rib cage and the bruising in this elderly patient who recently fell and is now quite weak, on the CT scan there is no acute process, no evidence of liver laceration or hematoma, no lumbar spine fractures, no rib fractures. Patient has no unilateral deficits, leg weakness is bilateral. I do not have any explanation for her weakness at this time. Patient was discussed with hospitalist MELISSA Goldstein who agrees to place the patient on her service for further workup of the acute renal failure and the weakness. (HANS LANDAVERDE) - Vital Signs Vital signs: Temp Pulse Resp BP Pulse Ox 97.6 F 59 L 18 137/57 H 98 01/29/18 18:59 01/29/18 18:59 01/29/18 18:59 01/29/18 18:59 01/29/18 18:59 - Laboratory Laboratory results interpreted by me: 01/29/18 01/29/18 12:20 12:20 RBC 3.42 L Hgb 11.0 L Hct 31.7 L RDW 14.3 H Sodium 135.2 L Potassium 5.2 H BUN 40 H Creatinine 2.09 H Est GFR ( Amer) 27 L Est GFR (Non-Af Amer) 23 L Direct Bilirubin 0.5 H AST 52 H Discharge <FROILAN CUELLAR - Last Filed: 01/29/18 19:17> - Discharge Admitting Provider: Hospitalist - [place] [facility] Admitted: Telemetry <HANS LANDAVERDE - Last Filed: 01/29/18 20:09> - Discharge Clinical Impression: Bilateral leg weakness, Inability to ambulate Acute renal failure Qualifiers: Acute renal failure type: unspecified Qualified Code(s): N17.9 - Acute kidney failure, unspecified Condition: Fair Disposition: ADMITTED INPATIENT Scribe Attestation: 01/29/18 20:08 I personally performed the services described in the documentation, reviewed and edited the documentation which was dictated to the scribe in my presence, and it accurately records my words and actions. (HANS LANDAVERDE) Scribe Documentation - Scribe Written by Elias:: Elias Tang, 01/29/2018 1747 acting as scribe for :: Kiersten <FROILAN CUELLAR - Last Filed: 01/29/18 19:17>
--- NOTE | 2018-01-29 15:33 | RADIOLOGY REPORT (SQ) ---
EXAM DESCRIPTION: CT CHEST WITHOUT COMPLETED DATE/TIME: 01/29/2018 3:03 pm REASON FOR STUDY: fall, hit R ribs, trouble walking COMPARISON: None. TECHNIQUE: CT scan performed of the chest without intravenous contrast. Images reviewed with lung, soft tissue and bone windows. Reconstructed coronal and sagittal MPR images reviewed. All images st ored on PACS. All CT scanners at this facility use dose modulation, iterative reconstruction, and/or weight based d osing when appropriate to reduce radiation dose to as low as reasonably achievable (ALARA). [facility]: Dose Right [facility]: CareDose [facility]: Dose Right [facility]: Teradose 4D [facility]: [employer] RADIATION DOSE: mGy. LIMITATIONS: No technical limitations. FINDINGS: LUNGS AND PLEURA: No masses, infiltrates, pneumothorax. No pleural effusions, calcificati ons. HILAR AND MEDIASTINAL STRUCTURES: No identified masses or abnormal nodes. No obvious aneurysm. HEART AND VASCULAR STRUCTURES: No aneurysm. No pericardial effusion. UPPER ABDOMEN: See separate report of the CT of the abdomen. THYROID AND OTHER SOFT TISSUES: No masses. No adenopathy. BONES: No significant finding. HARDWARE: None in the chest. OTHER: No other significant findings. IMPRESSION: NO SIGNIFICANT FINDING ON NON-CONTRASTED CHEST CT. TECHNICAL DOCUMENTATION: JOB ID: [id number] Quality ID # [id number]: Final reports with documentation of one or more dose reduction techniques (e.g., Au tomated exposure control, adjustment of the mA and/or kV according to patient size, use of iterative reconstruction technique) 2010 [employer]- All Rights Reserved Reading location - IP/workstation name: [email or web address]
--- NOTE | 2018-01-29 15:42 | RADIOLOGY REPORT (SQ) ---
EXAM DESCRIPTION: CT ABD/PELVIS NO ORAL OR IV COMPLETED DATE/TIME: 01/29/2018 3:03 pm REASON FOR STUDY: fall, hit ribs, trouble walking COMPARISON: 06/03/2017 TECHNIQUE: CT scan of the abdomen and pelvis performed without intravenous or oral contrast. Images reviewed with lung, soft tissue, and bone windows. Reconstructed coronal and sagittal MPR images revi ewed. All images stored on PACS. All CT scanners at this facility use dose modulation, iterative reconstruction, and/or weight based d osing when appropriate to reduce radiation dose to as low as reasonably achievable (ALARA). [facility]: Dose Right [facility]: CareDose [facility]: Dose Right [facility]: Teradose 4D [facility]: [employer] RADIATION DOSE: CT Rad equipment meets quality standard of care and radiation dose reduction techniq ues were employed. CTDIvol: 9.2 mGy. DLP: 635 mGy-cm.mGy. LIMITATIONS: None. FINDINGS: LOWER CHEST: See separate report of the CT of the chest. NON-CONTRASTED LIVER, SPLEEN, ADRENALS: Evaluation limited by lack of IV contrast. No identified sign ificant masses. PANCREAS: No masses. No peripancreatic inflammatory changes. GALLBLADDER: Surgically absent. RIGHT KIDNEY AND URETER: No suspicious masses. Assessment limited by lack of IV contrast. No signif icant calcifications. No hydronephrosis or hydroureter. LEFT KIDNEY AND URETER: No suspicious masses. Assessment limited by lack of IV contrast. No signifi cant calcifications. No hydronephrosis or hydroureter. AORTA AND RETROPERITONEUM: No aneurysm. Atherosclerosis. BOWEL AND PERITONEAL CAVITY: Diverticulosis coli. No acute inflammatory changes. No obvious bowel m asses. APPENDIX: Normal. PELVIS, BLADDER, AND ABDOMINAL WALL:No abnormal masses. No free fluid. Bladder normal. BONES: Scoliosis. Degenerative disc disease and spondylosis. Mild anterolisthesis of L4 on L5. OTHER: No other significant finding. IMPRESSION: Diverticulosis coli. No acute findings are seen in the abdomen or pelvis. Scoliosis. Anterolisthesis. Degenerative disc disease and spondylosis. COMMENT: Quality ID # [id number]: Final reports with documentation of one or more dose reduction techniques (e.g., Automated exposure control, adjustment of the mA and/or kV according to patient size, use of iterative reconstruction technique) TECHNICAL DOCUMENTATION: JOB ID: [id number]- All Rights Reserved Reading location - IP/workstation name: [email or web address]
[2018-01-29 15:48] LABS: APPEARANCE,URINE CLEAR; BILIRUBIN,URINE NEGATIVE (NEGATIVE); COLOR,URINE YELLOW; GLUCOSE, URINE NEGATIVE (NEGATIVE); KETONES,URINE NEGATIVE (NEGATIVE); LEUKOCYTE ESTERASE,URINE NEGATIVE (NEGATIVE); NITRITE,URINE NEGATIVE (NEGATIVE); PROTEIN,URINE NEGATIVE (NEGATIVE); URINE SPECIFIC GRAVITY 1.012; UROBILINOGEN,URINE NEGATIVE mg/dL (<2.0)
[2018-01-29] MEDS ORDERED: ONDANSETRON HCL INJ/PF 4 MG/2 ML SDV IV PRN (18:34)
[2018-01-29] MEDS ORDERED: NORMAL SALINE 1000 ML 1,000 ML IV PRN (18:34)
[2018-01-29] MEDS ORDERED: ACETAMINOPHEN 325 MG TABLET PO PRN (18:34)
--- NOTE | 2018-01-29 19:02 | PDOC H&P ---
History of Present Illness Admission Date/PCP: 01/29/18 16:39 IRVING CAMPBELL MD History of Present Illness: KATIE BARBOSA is a 82 year old female with a past medical history significant for atrial fibrillation maintained on amiodarone. She has a history of sick sinus syndrome but is not yet had a pacemaker placed. She has known coronary artery disease with a two-vessel CABG in the past as well as breast cancer maintained on letrozole. She has 2 stage II decubitus ulcers. The patient sleeps on her side. 1 of them is on the right ankle and the other is on the right shoulder. She recently was seen by her outpatient physician and placed on p.o. Bactrim for concerns of infection. The patient was in her usual state of health until yesterday. Yesterday morning she got up and was feeling well. She dressed herself and was up ambulating about the house. Later in the day she became profoundly weak. She was unable to ambulate and was somewhat confused according to the patient's daughter. This morning the patient's lower extremity weakness was so severe that the patient's daughter was concerned she was having an acute CVA and she was brought to the emergency room for further evaluation and treatment. The patient when she arrived in the emergency room had a CT scan of the chest abdomen and pelvis all of which was unremarkable. She was found to have acute renal failure with a creatinine of 2. Her baseline is 1.2. She also was found to have hyperkalemia. She was referred for admission. Past Medical History Cardiac Medical History: Reports: Atrial Fibrillation, Coronary Artery Disease, Myocardial Infarction, Hyperlipidema, Hypertension Pulmonary Medical History: Reports: None EENT Medical History: Reports: None Neurological Medical History: Reports: None Endocrine Medical History: Reports: None Denies: Diabetes Mellitus Type 2 Renal/ Medical History: Denies: Chronic Kidney Disease Malignancy Medical History: Reports: Breast Cancer GI Medical History: Reports: Diverticulitis, Gastroesophageal Reflux Disease Musculoskeltal Medical History: Reports: Arthritis Skin Medical History: Reports: None Psychiatric Medical History: Reports: None, Depression - anxiety Traumatic Medical History: Reports: None Hematology: Reports: None Infectious Medical History: Reports: None Past Surgical History Past Surgical History: Reports: Cholecystectomy, Coronary Artery Bypass Graft, Other - conoscopy, EGD Social History Information Source: Patient, POA - Power of Social Media Designer - Daughter Lives with: Family Smoking Status: Former Smoker Frequency of Alcohol Use: None Hx Recreational Drug Use: No Drugs: None Hx Prescription Drug Abuse: No - Advance Directive Resuscitation Status: Full Code Surrogate healthcare decision maker:: Domenica Green is the patient's daughter and healthcare power of estate planning attorney Family History Family History: Reviewed & Not Pertinent Parental Family History Reviewed: Yes Children Family History Reviewed: Yes Sibling(s) Family History Reviewed.: Yes Medication/Allergy Home Medications: Acetaminophen [Tylenol] 325 mg PO Q6HP PRN 01/29/18 Amiodarone HCl [Cordarone 200 mg Tablet] 200 mg PO MOWEFR@1000 01/29/18 Aspirin [Aspirin 81 mg Chewable Tablet] 81 mg PO DAILY 01/29/18 Cholecalciferol (Vitamin D3) [Vitamin D3 1000 Unit Tablet] 1,000 unit PO DAILY 01/29/18 Desonide 15 gm TP BID 01/29/18 Hydralazine HCl 100 mg PO Q12 01/29/18 Letrozole [Femara 2.5 Mg Tablet] 2.5 mg PO DAILY 01/29/18 Lorazepam [Ativan 0.5 mg Tablet] 0.5 mg PO Q8 01/29/18 Losartan Potassium [Cozaar 100 mg Tablet] 100 mg PO DAILY 01/29/18 Magnesium Oxide [Mag-Ox 400 mg Tablet] 400 mg PO DAILY 01/29/18 Mirtazapine 7.5 mg PO QHS 01/29/18 Nifedipine [Procardia Xl 30 mg Tablet] 30 mg PO DAILY 01/29/18 Olanzapine [Zyprexa 5 mg Tablet] 5 mg PO DAILY 01/29/18 Pantoprazole Sodium [Protonix] 40 mg PO DAILY 01/29/18 Polyethylene Glycol 3350 [Miralax Powder 17 gm/Packet] 1 packet PO DAILY Rosuvastatin Calcium [Crestor 20 mg Tablet] 20 mg PO DAILY 01/29/18 Silver [Acticoat 4 Inchx8 Inch Dressing] 1 each TP ASDIR PRN 01/29/18 Timolol Maleate [Timoptic 0.5% Oph Soln 5 ml] 1 drop OU DAILY 01/29/18 Travoprost (Benzalkonium) [Travatan 0.004% Eye Drop] 1 drop OU DAILY 01/29/18 Allergies/Adverse Reactions: JUDI Inhibitors Allergy (Verified 06/20/17 09:24) azithromycin Allergy (Verified 06/20/17 09:24) cephalexin Allergy (Verified 06/20/17 09:24) chlorthalidone Allergy (Verified 06/20/17:24) doxycycline Allergy (Verified 06/20/17 09:24) hydrochlorothiazide Allergy (Verified 06/20/17 09:24) hydrocodone Allergy (Verified 06/20/17:24) hydromorphone [From Dilaudid] Allergy (Verified 06/20/17:24) metformin Allergy (Verified 06/20/17 09:24) nitrofurantoin [From Macrobid] Allergy (Verified 06/20/17:24) promethazine Allergy (Verified 06/20/17:24) lisenoys Allergy (Uncoded 06/20/17:24) Review of Systems Constitutional: PRESENT: fatigue, weakness. ABSENT: chills, fever(s), headache( s), weight gain, weight loss Eyes: ABSENT: visual disturbances Ears: ABSENT: hearing changes Nose, Mouth, and Throat: ABSENT: headache(s), mouth pain, sore throat, vertigo Cardiovascular: ABSENT: chest pain, dyspnea on exertion, edema, palpitations Respiratory: ABSENT: cough, dyspnea Gastrointestinal: PRESENT: constipation. ABSENT: abdominal pain, diarrhea, dysphagia, heartburn, nausea, vomiting Genitourinary: PRESENT: difficulty urinating - Patient states that she is unable to void. She has had in and out catheterization in the emergency room. Musculoskeletal: PRESENT: back pain - She has chronic back pain at baseline but states that it is worsened over the past couple of days, muscle weakness - Significant lower extremity weakness Integumentary: ABSENT: rash, wounds Neurological: PRESENT: abnormal gait, weakness - Hello yes just do it without okay thanks but Psychiatric: PRESENT: anxiety, depression. ABSENT: homidical ideation, suicidal ideation Hematologic/Lymphatic: ABSENT: easy bleeding, easy bruising Physical Exam Vital Signs: Temp Pulse Resp BP Pulse Ox 98.4 F 56 L 13 125/57 L 98 01/29/18 12:35 01/29/18 12:35 01/29/18 17:01 01/29/18 17:01 01/29/18 17:01 General appearance: PRESENT: no acute distress, thin, well-nourished Head exam: PRESENT: atraumatic, normocephalic Eye exam: PRESENT: conjunctiva pink, EOMI, PERRLA. ABSENT: scleral icterus Ear exam: PRESENT: normal external ear exam Mouth exam: PRESENT: moist, tongue midline Neck exam: ABSENT: carotid bruit, JVD, lymphadenopathy, thyromegaly Respiratory exam: PRESENT: clear to auscultation gwyn. ABSENT: rales, rhonchi, wheezes Cardiovascular exam: PRESENT: RRR. ABSENT: diastolic murmur, rubs, systolic murmur Pulses: PRESENT: normal dorsalis pedis pul Vascular exam: PRESENT: normal capillary refill GI/Abdominal exam: PRESENT: hypoactive bowel sounds, soft. ABSENT: distended, guarding, mass, organolmegaly, rebound, tenderness Extremities exam: PRESENT: full ROM. ABSENT: calf tenderness, clubbing, pedal edema Musculoskeletal exam: PRESENT: other - 2 out of 5 muscle weakness in both of her lower extremities bilaterally. ABSENT: ambulatory Neurological exam: PRESENT: alert, awake, oriented to person, oriented to place , oriented to time, oriented to situation, CN II-XII grossly intact, other. ABSENT: motor sensory deficit Psychiatric exam: PRESENT: appropriate affect, normal mood, other - masked facies with. ABSENT: homicidal ideation, suicidal ideation Skin exam: PRESENT: dry, intact, warm. ABSENT: cyanosis, rash Results Impressions: Abdomen/Pelvis CT 01/29/18 14:19 IMPRESSION: Diverticulosis coli. No acute findings are seen in the abdomen or pelvis. Scoliosis. Anterolisthesis. Degenerative disc disease and spondylosis. Chest CT 01/29/18 14:19 IMPRESSION: NO SIGNIFICANT FINDING ON NON-CONTRASTED CHEST CT. Assessment & Plan - Diagnosis (1) Acute renal failure Is this a current diagnosis for this admission?: Yes Plan: The patient's baseline creatinine is 1.23. Currently it is 2.09. Her acute renal failure is likely due to ATN from Bactrim. She also now has developed urinary retention which could be contributing as well. CT scan of the abdomen and pelvis did not reveal hydronephrosis. The patient also had been receiving losartan as an outpatient. I am going to place the patient on normal saline today we will recheck a chemistry panel in the morning. (2) Urinary retention Is this a current diagnosis for this admission?: Yes Plan: The patient is unable to void. She has required an in and out catheterization in the emergency room. Going to get the nursing staff to bladder scan her. If she requires a second in and out catheterization we will just place a Santos catheter. I am going to get an MRI of her lumbar spine due to her severe lower extremity weakness. New-onset urinary retention is quite concerning in the setting. (3) Weakness of both lower extremities Is this a current diagnosis for this admission?: Yes Plan: The patient was up ambulating yesterday morning. She did not have a fall yesterday but has fallen recently. Now the patient is profoundly weak and can barely move her legs at all. We are going to get an MRI of the lumbar spine and we will follow-up with those results. Will consult physical therapy to see the patient as well (4) Hyperkalemia Is this a current diagnosis for this admission?: Yes Plan: Likely secondary to acute renal failure. She will have a chemistry panel drawn in the morning (5) Atrial fibrillation Is this a current diagnosis for this admission?: Yes Plan: Johnathan Toddmarilyn will continue her home dose of amiodarone. She is not on anticoagulation as an outpatient. She follows with Dr. Mann (6) CAD (coronary artery disease) Is this a current diagnosis for this admission?: Yes Plan: The patient will continue her home regimen. However I am going to hold her losartan in light of her acute renal failure. (7) SSS (sick sinus syndrome) Is this a current diagnosis for this admission?: Yes Plan: She does not have a pacemaker in place. She is followed closely by cardiology as an outpatient. We will keep her on a remote monitor for now. (8) Breast cancer Is this a current diagnosis for this admission?: Yes Plan: Continue letrozole. She has had no evidence of progression (9) Hypertension Is this a current diagnosis for this admission?: Yes Plan: Continue home regimen. Her losartan will be held. (10) Hyperlipidemia Is this a current diagnosis for this admission?: Yes Plan: Continue home regimen (11) Stage II decubitus ulcer Qualifiers: Pressure ulcer location: upper back Laterality: right Qualified Code(s): L89.112 - Pressure ulcer of right upper back, stage 2 Is this a current diagnosis for this admission?: Yes Plan: The patient has a stage II decubitus ulcer on her right ankle in her right shoulder. She sleeps on her back. Continue local wound care. She recently was placed on Bactrim for infection. (12) Full code status Is this a current diagnosis for this admission?: Yes - Time Time Spent: 50 to 70 Minutes - Inpatient Certification Medical Necessity: Need For IV Fluids - The patient will be admitted fully as an inpatient. I fully expect her hospitalization to span greater than 2 midnights. She has acute renal failure requiring parenteral fluids. More concerning is new onset severe lower extremity weakness and urinary retention. She needs an MRI of the lumbar spine. Patient is totally unable to ambulate at this point. She likely will require extensive rehab. She has multiple comorbidities and is at high risk of complications. She will be fully admitted as an inpatient., Other
[2018-01-29 19:13] LABS: INTERNATIONAL RATION (INR) 0.96; PROTHROMBIN TIME 13.3 SEC (11.4-15.4)
[2018-01-29 19:14] LABS: PARTIAL THROMBOPLASTIN TIME 25.7 SEC (23.5-35.8)
[2018-01-29] MEDS ORDERED: DOCUSATE SODIUM 100 MG CAPSULE PO ONE (20:00)
--- NOTE | 2018-01-29 21:09 | RADIOLOGY REPORT (SQ) ---
EXAM DESCRIPTION: MRI LUMBAR SPINE WITHOUT COMPLETED DATE/TIME: 01/29/2018 8:42 pm REASON FOR STUDY: LE weakness, urinary retention, back pain COMPARISON: Correlation made to CT from 01/29/2018. TECHNIQUE: Sagittal and Axial imaging includes T1, T2, STIR and gradient echo sequences. Coronal T2/ HASTE imaging. LIMITATIONS: None. FINDINGS: VISUALIZED UPPER ABDOMEN: Limited evaluation. No acute or suspicious findings suggested. SEGMENTATION: No transitional anatomy. The lowest well-developed disc space is labeled L5-S1. ALIGNMENT: Stable levoscoliosis centered at the L2-L3 level. Stable degree of anterolisthesis L4 on L5. VERTEBRAE: Intact. BONE MARROW: Normal. No marrow replacement or reactive changes. DISC SIGNAL: Advanced multilevel degenerative disc disease with disc desiccation and loss of height m ost pronounced at the L1-L2 and L2-L3 levels. POSTERIOR ELEMENTS: Generally intact. No pars defect evident. HARDWARE: None in the spine. CORD AND CONUS: Normal in size and signal intensity. Conus at the appropriate level. SOFT TISSUES: No aortic aneurysm seen. No bulky retroperitoneal adenopathy or mass. No paraspinal mas s or fluid. L1-L2: Severe disc desiccation with broad-based bulging along with ligamentum flavum hypertrophy and facet arthropathy. There is mild spinal canal stenosis and mild bilateral neural foraminal narrowing without definite nerve root impingement. L2-L3: Disc desiccation with broad-based bulging along with ligamentum flavum hypertrophy and facet a rthropathy. There is mild bilateral neural foraminal narrowing and minimal spinal canal stenosis wit hout definite nerve root impingement. L3-L4: Broad-based disc bulging, right foraminal zone protrusion, and severe ligamentum flavum hypert rophy/ facet arthropathy resulting in severe spinal canal stenosis, severe right neural foraminal juan david rowing, and mild left neural foraminal narrowing. L4-L5: Broad-based disc bulging along with ligamentum flavum hypertrophy and severe facet arthropathy resulting in severe spinal canal stenosis and moderate bilateral neural foraminal narrowing. L5-S1: Broad-based disc bulging the centric to the left along with ligamentum flavum hypertrophy and facet arthropathy. There is severe left neural foraminal narrowing with impingement of the exiting n erve roots in mild right neural foraminal narrowing. LOWER THORACIC: Incompletely imaged. No stenosis seen. SACRUM: Visualized upper sacrum intact. OTHER: No other significant findings. IMPRESSION: ADVANCED MULTILEVEL DEGENERATIVE CHANGE OF THE LUMBAR SPINE WITH SEVERE SPINAL CANAL JUANITA NOSIS AT THE L3-L4 AND L4-L5 LEVELS ALONG WITH MODERATE TO SEVERE MULTILEVEL NEURAL FORAMINAL NARROWI NG. SURGICAL CONSULTATION IS RECOMMENDED GIVEN PATIENT'S SYMPTOMS. TECHNICAL DOCUMENTATION: JOB ID: [id number] [employer]- All Rights Reserved Reading location - IP/workstation name: [email or web address]
[2018-01-29] MEDS: LORAZEPAM 0.5 MG TABLET PO SCH (21:42)
[2018-01-29] MEDS: HYDRALAZINE HCL 50 MG TABLET PO SCH (21:42)
[2018-01-29] MEDS ORDERED: MIRTAZAPINE 15 MG TABLET PO SCH (22:00)
[2018-01-29] MEDS ORDERED: ATORVASTATIN CALCIUM 40 MG TABLET PO SCH (22:00)
[2018-01-29] MEDS ORDERED: LATANOPROST 0.005% OPH SOLN 2.5 ML OU SCH (22:00)
[2018-01-29] MEDS ORDERED: (PENDING PHARMACY ID) (Hydralazine Hcl [Hydralazine Hcl] 100 MG) PO SCH (22:00)
[2018-01-30] MEDS: LORAZEPAM 0.5 MG TABLET PO SCH ×2 (05:38→14:20)
[2018-01-30] MEDS ORDERED: LANSOPRAZOLE 30 MG TAB.RAP.DR PO SCH (06:00)
[2018-01-30 07:15] LABS: ABSOLUTE BASOPHILS # (AUTO) 0.1 10^3/uL (0.0-0.2); ABSOLUTE EOSINOPHILS # (AUTO) 0.3 10^3/uL (0.0-0.6); ABSOLUTE LYMPHOCYTES (AUTO) 1.3 10^3/uL (0.5-4.7); ABSOLUTE MONOCYTES (AUTO) 0.6 10^3/uL (0.1-1.4); ABSOLUTE NEUT (AUTO) 3.2 10^3/uL (1.7-8.2); BASOPHILS % (AUTO) 1.3 % (0-2); EOSINOPHILS % (AUTO) 5.9 % (0-6); HEMATOCRIT 31.7 % (36.0-47.0); LYMPHOCYTES % (AUTO) 23.1 % (13-45); MEAN CORPUSCULAR HEMOGLOBIN 32.3 pg (27.0-33.4); MEAN CORPUSCULAR HGB CONC 34.6 g/dL (32.0-36.0); MEAN CORPUSCULAR VOLUME 93 fl (80-97); MONOCYTES % (AUTO) 11.7 % (3-13); PLATELET COUNT 191 10^3/uL (150-450); TOTAL CELLS COUNTED % (AUTO) 100 %; WHITE BLOOD COUNT 5.5 10^3/uL (4.0-10.5)
[2018-01-30 07:40] LABS: ALANINE AMINOTRANSFERASE 39 U/L (9-52); ALBUMIN 3.5 g/dL (3.5-5.0); ALKALINE PHOSPHATASE 104 U/L (38-126); ANION GAP 10 (5-19); ASPARTATE AMINO TRANSFERASE 53 U/L (14-36); BILIRUBIN,DIRECT 0.5 mg/dL (0.0-0.4); BLOOD UREA NITROGEN 30 mg/dL (7-20); CALCIUM 9.5 mg/dL (8.4-10.2); CARBON DIOXIDE 23 mmol/L (22-30); CHLORIDE 101 mmol/L (98-107); GLUCOSE 95 mg/dL (75-110); PHOSPHORUS 4.3 mg/dL (2.5-4.5); POTASSIUM 5.1 mmol/L (3.6-5.0); SODIUM 133.6 mmol/L (137-145); TOTAL PROTEIN 6.5 g/dL (6.3-8.2)
--- NOTE | 2018-01-30 09:09 | PDOC PROGRESS REPORT ---
Subjective Progress Note for:: 01/30/18 Subjective:: The patient is resting in her bed. She had an uneventful night last night. She has had some incontinence and his voided a little bit since yesterday when she was admitted. She denies fever or chills. No chest pain, shortness of breath or cough. No nausea, vomiting or diarrhea. The patient still has not had a bowel movement yet. She still is having difficulty voiding but has managed to pass some urine. She continues to have rather profound lower extremity weakness. I did discuss the findings of the MRI with the patient and the daughter at the bedside. The patient's daughter states that on Monday the patient sustained a fall. She spent most of the day Monday in the bed. On Monday morning the patient was able to get up independently and dress herself. She went to [facility] and ambulated without difficulty. She got back into the car and by the time they got home the patient was having difficulty moving her lower extremities. They had to help her into the house and since that time she has had profound weakness and difficulty ambulating. MRI reveals multilevel severe spinal stenosis with possible cord impingement. Neurosurgery evaluation is recommended by the radiologist. The patient's daughter would like to pursue evaluation at [facility]. I have spoken to them this morning and we are going to upload the images from the MRI so a neurosurgeon can evaluate them. Reason For Visit: ACUTE RENAL FAILURE Physical Exam Vital Signs: Temp Pulse Resp BP Pulse Ox 97.6 F 53 L 16 127/51 H 95 01/30/18 04:31 01/30/18 07:00 01/30/18 04:31 01/30/18 04:31 01/30/18 04:31 Intake & Output 01/29/18 01/30/18 01/31/18 06:59 06:59 06:59 Intake Total 30 Balance 30 Weight 60.2 kg General appearance: PRESENT: no acute distress, well-developed, well-nourished, other - She has masked facies Head exam: PRESENT: atraumatic, normocephalic Mouth exam: PRESENT: moist, tongue midline Respiratory exam: PRESENT: clear to auscultation gwyn. ABSENT: rales, rhonchi, wheezes Cardiovascular exam: PRESENT: RRR. ABSENT: diastolic murmur, rubs, systolic murmur GI/Abdominal exam: PRESENT: hypoactive bowel sounds, soft. ABSENT: distended, guarding, mass, organolmegaly, rebound, tenderness Rectal exam: PRESENT: deferred Extremities exam: PRESENT: full ROM. ABSENT: calf tenderness, clubbing, pedal edema Musculoskeletal exam: ABSENT: ambulatory Neurological exam: PRESENT: alert, awake, oriented to person, oriented to place , oriented to time, oriented to situation, CN II-XII grossly intact, other - Bilateral lower extremity weakness 2 out of 5. ABSENT: motor sensory deficit Psychiatric exam: PRESENT: flat affect - Suspect she has masked facies, normal mood. ABSENT: homicidal ideation, suicidal ideation Skin exam: PRESENT: dry, intact, warm. ABSENT: cyanosis, rash Results Laboratory Results: 01/30/18 06:43 01/30/18 06:43 01/30/18 01/30/18 06:43 06:43 WBC 5.5 RBC 3.40 L Hgb 11.0 L Hct 31.7 L MCV 93 MCH 32.3 MCHC 34.6 RDW 14.0 Plt Count 191 Seg Neutrophils % 58.0 Lymphocytes % 23.1 Monocytes % 11.7 Eosinophils % 5.9 Basophils % 1.3 Absolute Neutrophils 3.2 Absolute Lymphocytes 1.3 Absolute Monocytes 0.6 Absolute Eosinophils 0.3 Absolute Basophils 0.1 Sodium 133.6 L Potassium 5.1 H Chloride 101 Carbon Dioxide 23 Anion Gap 10 BUN 30 H Creatinine 1.53 H Est GFR ( Amer) 39 L Est GFR (Non-Af Amer) 32 L Glucose 95 Calcium 9.5 Phosphorus 4.3 Magnesium 2.7 H Total Bilirubin 1.0 AST 53 H ALT 39 Alkaline Phosphatase 104 Total Protein 6.5 Albumin 3.5 Impressions: Lumbar Spine MRI 01/29/18 00:00 IMPRESSION: ADVANCED MULTILEVEL DEGENERATIVE CHANGE OF THE LUMBAR SPINE WITH SEVERE SPINAL CANAL STENOSIS AT THE L3-L4 AND L4-L5 LEVELS ALONG WITH MODERATE TO SEVERE MULTILEVEL NEURAL FORAMINAL NARROWING. SURGICAL CONSULTATION IS RECOMMENDED GIVEN PATIENT'S SYMPTOMS. Abdomen/Pelvis CT 01/29/18 14:19 IMPRESSION: Diverticulosis coli. No acute findings are seen in the abdomen or pelvis. Scoliosis. Anterolisthesis. Degenerative disc disease and spondylosis. Chest CT 01/29/18 14:19 IMPRESSION: NO SIGNIFICANT FINDING ON NON-CONTRASTED CHEST CT. Assessment & Plan - Diagnosis (1) Acute renal failure Is this a current diagnosis for this admission?: Yes Plan: The patient's baseline creatinine is 1.23. On admission 2.09. Today it is down to 1.53. Her acute renal failure is likely due to ATN from recent use of Bactrim for soft tissue infection as well as continuing her losartan. Her creatinine is improving. She did receive some gentle hydration. (2) Spinal stenosis of lumbar region at multiple levels Is this a current diagnosis for this admission?: Yes Plan: MRI of the lumbar spine reveals advanced multilevel degenerative changes with severe spinal canal stenosis at the L3-L4 and L4-L5 levels. She also has moderate to severe multilevel neural foraminal narrowing. Surgical consultation is recommended. The patient continues to have significant lower extremity weakness. The patient is intermittently able to void. She has not had a bowel movement since the weakness began. I spoke to the patient's daughter who wants to pursue evaluation in [place]. I have spoken to the transfer center and we are going to upload the images for a neurosurgeon to evaluate. We will follow-up with their recommendations. (3) Urinary retention Is this a current diagnosis for this admission?: Yes Plan: Improved. She still states she has difficulty voiding but she has passed some urine overnight. (4) Weakness of both lower extremities Is this a current diagnosis for this admission?: Yes Plan: This weakness came on suddenly. The patient was walking and independent with her ADLs up until Monday after lunch. She has an abnormal MRI. I am going to pursue neurosurgery evaluation. (5) Hyperkalemia Is this a current diagnosis for this admission?: Yes Plan: Likely secondary to acute renal failure. Improved. She will have a chemistry panel drawn in the morning (6) Atrial fibrillation Qualifiers: Atrial fibrillation type: chronic Qualified Code(s): I48.2 - Chronic atrial fibrillation Is this a current diagnosis for this admission?: Yes Plan: She will continue her home dose of amiodarone. She is not on anticoagulation as an outpatient. She follows with Dr. Mann (7) CAD (coronary artery disease) Is this a current diagnosis for this admission?: Yes Plan: The patient will continue her home regimen. She has had a two-vessel CABG in the past. However I am going to continue to hold her losartan in light of her acute renal failure. (8) SSS (sick sinus syndrome) Is this a current diagnosis for this admission?: Yes Plan: She does not have a pacemaker in place. She is followed closely by cardiology as an outpatient. We will keep her on a remote monitor for now. (9) Breast cancer Is this a current diagnosis for this admission?: Yes Plan: Continue letrozole. She has had no evidence of progression (10) Hypertension Is this a current diagnosis for this admission?: Yes Plan: Continue home regimen. Her losartan will continue to to be held. Blood pressures are well controlled at this point. (11) Hyperlipidemia Is this a current diagnosis for this admission?: Yes Plan: Continue home regimen (12) Stage II decubitus ulcer Qualifiers: Pressure ulcer location: upper back Laterality: right Qualified Code(s): L89.112 - Pressure ulcer of right upper back, stage 2 Is this a current diagnosis for this admission?: Yes Plan: The patient has a stage II decubitus ulcer on her right ankle in her right shoulder. She sleeps on her right side. Continue local wound care. She recently was placed on Bactrim for infection. Currently no evidence of infection. (13) Full code status Is this a current diagnosis for this admission?: Yes - Time Time Spent with patient: 35 or more minutes - Inpatient Certification Medical Necessity: Need Close Monitoring Due to Risk of Patient Decompensation, Other - Inpatient hospitalization remains necessary. The patient has an abnormal MRI but in light of her lower extremity weakness and intermittent difficulty voiding is concerning for cord compression. Her images need to be evaluated by neurosurgery and she may in fact require transfer to a tertiary center for possible surgery. We will hold off on physical therapy evaluation today until her images are reviewed. If no surgery is required she likely will require extensive rehabilitation prior to going home.
[2018-01-30] MEDS ORDERED: POLYETHYLENE GLYCOL 3350 POWDER 17 GM/1 PACKET PO SCH (10:00)
[2018-01-30] MEDS ORDERED: OLANZAPINE 5 MG TABLET PO SCH (10:00)
[2018-01-30] MEDS ORDERED: ENOXAPARIN SODIUM INJ 30 MG/0.3 ML DISP.SYRIN SUBCUT SCH (10:00)
[2018-01-30] MEDS ORDERED: CHOLECALCIFEROL (D3) 1,000 UNIT TABLET PO SCH (10:00)
[2018-01-30] MEDS ORDERED: MAGNESIUM OXIDE 400 MG TABLET PO SCH (10:00)
[2018-01-30] MEDS ORDERED: DESONIDE 15 GM TP SCH (10:00)
[2018-01-30] MEDS ORDERED: LETROZOLE 2.5 MG TABLET PO SCH (10:00)
[2018-01-30] MEDS ORDERED: TIMOLOL MALEATE 0.5% OPH SOLN 5 ML OU SCH (10:00)
[2018-01-30] MEDS ORDERED: ASPIRIN 81 MG TABLET, CHEWABLE PO SCH (10:00)
[2018-01-30] MEDS ORDERED: DOCUSATE SODIUM 100 MG CAPSULE PO SCH (10:00)
[2018-01-30] MEDS ORDERED: (PENDING PHARMACY ID) (Rosuvastatin Calcium [Crestor 20 Mg Tablet] 20 MG) PO SCH (10:00)
[2018-01-30] MEDS ORDERED: (PENDING PHARMACY ID) (Travoprost (Benzalkonium) [Travatan 0.004% Eye Drop] 1 DROP) OU SCH (10:00)
[2018-01-30] MEDS ORDERED: NIFEDIPINE 30 MG TAB.ER.24 PO SCH (10:00)
--- NOTE | 2018-01-30 10:10 | PDOC TRANSFER SUMMARY ---
General Admission Date/PCP: 01/29/18 16:39 IRVING CAMPBELL MD Laser Cutter: Dr Mann Admission Date: 01/29/18 Transfer Date: 01/30/18 Accepting Facility: [facility] Resuscitation Status: Full Code - Transfer Diagnosis (1) Acute renal failure Is this a current diagnosis for this admission?: Yes Diagnosis Summary: Delaplane to be secondary to ATN due to recent treatment with Bactrim as well as losartan. Baseline creatinine is 1.23. Her creatinine at the time of admission was 2.09. It is 1.5 today. Her acute renal failure is resolving. (2) Spinal stenosis of lumbar region at multiple levels Is this a current diagnosis for this admission?: Yes Diagnosis Summary: I have spoken to Dr Arroyo from the neurosurgery service at [facility]. He believes this is an urgent surgical issue and has recommended transfer for neurosurgery. The patient has been accepted under the hospitalist service. Dr. Rocha is the accepting hospitalist. We certainly appreciate her assistance. (3) Urinary retention Is this a current diagnosis for this admission?: Yes Diagnosis Summary: The patient has been having intermittent urinary retention. She has required an in and out catheterization. Currently incontinent which is a new problem for the patient. Possibly due to cord compression. At this point we are simply performing bladder scans. I have not placed a Santos catheter yet. The patient now is able to void small amounts however she is now totally incontinent of urine which is a new problem for her. (4) Weakness of both lower extremities Is this a current diagnosis for this admission?: Yes Diagnosis Summary: Likely due to severe spinal stenosis in her lumbar spine. She will be transferred to [place] for evaluation of possible neurosurgery. (5) Hyperkalemia Is this a current diagnosis for this admission?: Yes Diagnosis Summary: Likely secondary to acute renal failure. Improving. Her level is still above normal. (6) Atrial fibrillation Is this a current diagnosis for this admission?: Yes Diagnosis Summary: Currently in a sinus rhythm and rate controlled. The patient is maintained on amiodarone. She is not on anticoagulation likely due to her fall risk. (7) CAD (coronary artery disease) Is this a current diagnosis for this admission?: Yes Diagnosis Summary: She will continue her home regimen. She is status post two-vessel CABG in the past. She follows with Dr. Mann who manages her heart issues in [place]. (8) SSS (sick sinus syndrome) Is this a current diagnosis for this admission?: Yes Diagnosis Summary: She does not have a pacemaker in place. This is simply being monitored. Would recommend keeping the patient on telemetry monitoring. (9) Breast cancer Is this a current diagnosis for this admission?: Yes Diagnosis Summary: She will continue letrozole. This is quite stable. (10) Hypertension Is this a current diagnosis for this admission?: Yes Diagnosis Summary: Her losartan has been held due to her acute renal failure. Her blood pressures are well controlled on the current regimen. (11) Hyperlipidemia Is this a current diagnosis for this admission?: Yes Diagnosis Summary: She will continue her statin medication (12) Stage II decubitus ulcer Is this a current diagnosis for this admission?: Yes Diagnosis Summary: The patient sleeps on her right side and has a stage II decubitus ulcer on her right shoulder as well as her right ankle. She was recently placed on Bactrim as an outpatient for a soft tissue infection of these areas. No evidence of infection at this point. (13) Full code status Is this a current diagnosis for this admission?: Yes - Transfer Medications Home Medications: Acetaminophen [Tylenol] 325 mg PO Q6HP PRN 01/29/18 Amiodarone HCl [Cordarone 200 mg Tablet] 200 mg PO MOWEFR@1000 01/29/18 Aspirin [Aspirin 81 mg Chewable Tablet] 81 mg PO DAILY 01/29/18 Cholecalciferol (Vitamin D3) [Vitamin D3 1000 Unit Tablet] 1,000 unit PO DAILY 01/29/18 Desonide 15 gm TP BID 01/29/18 Hydralazine HCl 100 mg PO Q12 01/29/18 Letrozole [Femara 2.5 Mg Tablet] 2.5 mg PO DAILY 01/29/18 Lorazepam [Ativan 0.5 mg Tablet] 0.5 mg PO Q8 01/29/18 Losartan Potassium [Cozaar 100 mg Tablet] 100 mg PO DAILY 01/29/18 Magnesium Oxide [Mag-Ox 400 mg Tablet] 400 mg PO DAILY 01/29/18 Mirtazapine 7.5 mg PO QHS 01/29/18 Nifedipine [Procardia Xl 30 mg Tablet] 30 mg PO DAILY 01/29/18 Olanzapine [Zyprexa 5 mg Tablet] 5 mg PO DAILY 01/29/18 Pantoprazole Sodium [Protonix] 40 mg PO DAILY 01/29/18 Polyethylene Glycol 3350 [Miralax Powder 17 gm/Packet] 1 packet PO DAILY Rosuvastatin Calcium [Crestor 20 mg Tablet] 20 mg PO DAILY 01/29/18 Silver [Acticoat 4 Inchx8 Inch Dressing] 1 each TP ASDIR PRN 01/29/18 Timolol Maleate [Timoptic 0.5% Oph Soln 5 ml] 1 drop OU DAILY 01/29/18 Travoprost (Benzalkonium) [Travatan 0.004% Eye Drop] 1 drop OU DAILY 01/29/18 Transfer Medications: Current Medications Acetaminophen (Tylenol 325 Mg Tablet) 650 mg PO Q4HP PRN PRN Reason: FEVER >101 Stop: 02/28/18 18:33 Amiodarone HCl (Cordarone 200 Mg Tablet) 200 mg PO MOWEFR@1000 [facility] Stop: 03/02/18 09:59 Aspirin (Aspirin 81 Mg Chewable Tablet) 81 mg PO DAILY [place] Stop: 03/01/18 09:59 Atorvastatin Calcium (Lipitor 40 Mg Tablet) 40 mg PO QHS [facility] Stop: 02/28/18 21:59 Last Admin: 01/29/18 21:42 Dose: 40 mg Cholecalciferol (Vitamin D3 1000 Unit Tablet) 1,000 unit PO DAILY [facility] Stop: 03/01/18 09:59 Docusate Sodium (Colace 100 Mg Capsule) 100 mg PO BID [place] Stop: 03/01/18 09:59 Enoxaparin Sodium (Lovenox Inj 30 Mg/0.3 Ml Disp.Syrin) 30 mg SUBCUT DAILY [facility] Stop: 03/01/18 09:59 Hydralazine HCl (Apresoline 50 Mg Tablet) 100 mg PO Q12 [place] Stop: 02/28/18 21:59 Last Admin: 01/29/18 21:42 Dose: 100 mg Sodium Chloride (Nacl 0.9% 1000 Ml Iv Soln) 1,000 mls @ 125 mls/hr IV CONTINUOUS PRN PRN Reason: THIS MED IS NOT "PRN" Stop: 02/28/18 18:33 Lansoprazole (Prevacid 30 Mg Odt Tablet) 30 mg PO Q6AM [facility] Stop: 03/01/18 05:59 Last Admin: 01/30/18 05:38 Dose: 30 mg Latanoprost (Xalatan 0.005% Oph Soln 2.5 Ml) 1 drop OU QHS [place] Stop: 02/28/18 21:59 Last Admin: 01/29/18 21:43 Dose: Not Given Letrozole (Femara 2.5 Mg Tablet) 2.5 mg PO DAILY [place] Stop: 03/01/18 09:59 Lorazepam (Ativan 0.5 Mg Tablet) 0.5 mg PO Q8 [place] Stop: 02/05/18 21:59 Last Admin: 01/30/18 05:38 Dose: 0.5 mg Magnesium Oxide (Mag-Ox 400 Mg Tablet) 400 mg PO DAILY [place] Stop: 03/01/18 09:59 Mirtazapine (Remeron 15 Mg Tablet) 7.5 mg PO QHS [place] Stop: 02/28/18 21:59 Last Admin: 01/29/18 21:42 Dose: 7.5 mg Nifedipine (Procardia Xl 30 Mg Tablet) 30 mg PO DAILY [place] Stop: 03/01/18 09:59 Olanzapine (Zyprexa 5 Mg Tablet) 5 mg PO DAILY [place] Stop: 03/01/18 09:59 Ondansetron HCl (Zofran Inj/Pf 4 Mg/2 Ml Sdv) 4 mg IV Q4HP PRN PRN Reason: FOR NAUSEA/VOMITING Stop: 02/28/18 18:33 Patient Own Medication (Desonide [Desonide]) 15 gm TP .BID [place] Stop: 03/01/18 09:59 Polyethylene Glycol (Miralax Powder 17 Gm/Packet) 17 gm PO DAILY [place] Stop: 03/01/18 09:59 Timolol Maleate (Timoptic 0.5% Oph Soln 5 Ml) 1 drop OU DAILY [place] Stop: 03/01/18 09:59 - Allergies Allergies/Adverse Reactions: JUDI Inhibitors Allergy (Verified 06/20/17 09:24) azithromycin Allergy (Verified 06/20/17 09:24) cephalexin Allergy (Verified 06/20/17 09:24) chlorthalidone Allergy (Verified 06/20/17 09:24) doxycycline Allergy (Verified 06/20/17 09:24) hydrochlorothiazide Allergy (Verified 06/20/17 09:24) hydrocodone Allergy (Verified 06/20/17 09:24) hydromorphone [From Dilaudid] Allergy (Verified 06/20/17:24) metformin Allergy (Verified 06/20/17:24) nitrofurantoin [From Macrobid] Allergy (Verified 06/20/17:24) promethazine Allergy (Verified 06/20/17:24) lisenoys Allergy (Uncoded 06/20/17:24) - Diet/Activity Discharge Diet: Other (Comments) - I am making the patient n.p.o. after breakfast. Discharge Activity: Bedrest Hospital Course Hospital Course: The patient is a pleasant 82-year-old female with a past medical history significant for atrial fibrillation. She is maintained on amiodarone and is not on anticoagulation. Her daughter also reports she has a history of sick sinus syndrome but has not had a pacemaker placed yet. This is simply being monitored. She has known coronary artery disease with a two-vessel CABG in the past as well as breast cancer maintained on letrozole. She has 2 stage II decubitus ulcers on her right side where she sleeps. 1 of them is on the right ankle and the other is on the right shoulder. She was recently seen by her outpatient physician and placed on p.o. Bactrim for concerns of infection. She was in her usual state of health until January 27, 2018. On this day the patient suffered a fall. She spent the rest of the day in the bed. The next morning the patient got up and was able to dress her house and was ambulating without difficulty. She went out to eat at [facility] and had absolutely no difficulties. When she got in the car and was driving she developed sudden onset of lower extremity weakness. She was having trouble moving her lower extremities. She had to be helped into the house. On Monday due to the severe weakness and inability to ambulate she was brought to the emergency room for further evaluation. The patient's daughter felt like she may be having an acute CVA. In the emergency room the patient had a CT scan of the chest abdomen and pelvis all of which were unremarkable. She was found to have acute renal failure with a creatinine of 2.09. Her baseline creatinine is 1.2. She also had mild hyperkalemia and was referred for admission. By the time I saw the patient yesterday she was complaining of inability to void. She had to be in and out catheterized in the emergency room. I was quite concerned due to the sudden onset of lower extremity weakness and urinary retention. The patient's daughter also states that she has a bowel movement at about the same time every day and that she has not had one since the weakness began. An MRI of the lumbar spine was obtained which revealed severe spinal stenosis. The radiologist recommended evaluation by neurosurgery. This morning the patient has voided however she is totally incontinent of urine which is a new problem for the patient. Her acute renal failure is improving and she currently has a creatinine of 1.5. I contacted the transfer center in [place]. I spoke to Dr. Arroyo at the from the neurosurgery service at [facility]. The images were uploaded for his review. He does believe that this is an urgent neurosurgical issue and recommended transfer under the hospitalist service to their facility for consideration of urgent neurosurgery. I spoke to Dr. Rocha from the hospitalist service who is agreed to accept the patient in transfer. We certainly appreciate both of their assistance. She will be transferred to [facility] as soon as a bed is found. Physical Exam Vital Signs: Temp Pulse Resp BP Pulse Ox 98.6 F 54 L 12 138/51 H 99 01/30/18 07:40 01/30/18 07:40 01/30/18 07:40 01/30/18 07:40 01/30/18 07:40 Intake & Output 01/29/18 01/30/18 01/31/18 06:59 06:59 06:59 Intake Total 30 Balance 30 Weight 60.2 kg General appearance: PRESENT: no acute distress, thin, well-developed, well- nourished, other - She has masked facies Head exam: PRESENT: atraumatic, normocephalic Eye exam: PRESENT: conjunctiva pink, EOMI, PERRLA. ABSENT: scleral icterus Ear exam: PRESENT: normal external ear exam Mouth exam: PRESENT: moist, tongue midline Neck exam: ABSENT: carotid bruit, JVD, lymphadenopathy, thyromegaly Respiratory exam: PRESENT: clear to auscultation gwyn. ABSENT: rales, rhonchi, wheezes Cardiovascular exam: PRESENT: RRR. ABSENT: diastolic murmur, rubs, systolic murmur Pulses: PRESENT: normal dorsalis pedis pul Vascular exam: PRESENT: normal capillary refill GI/Abdominal exam: PRESENT: diminished bowel sounds, soft, tenderness Rectal exam: PRESENT: deferred Extremities exam: PRESENT: full ROM. ABSENT: calf tenderness, clubbing, pedal edema Musculoskeletal exam: PRESENT: other - Patient with severe lower extremity weakness. ABSENT: ambulatory Neurological exam: PRESENT: alert, awake, oriented to person, oriented to place , oriented to time, oriented to situation, CN II-XII grossly intact, motor sensory deficit, other - Significant lower extremity weakness, 2/5 bilaterally Psychiatric exam: PRESENT: flat affect, normal mood, other - I believe the patient has mast facies. ABSENT: homicidal ideation, suicidal ideation Skin exam: PRESENT: dry, intact, warm. ABSENT: cyanosis, rash Results Laboratory Results: 01/30/18 06:43 01/30/18 06:43 01/30/18 01/30/18 06:43 06:43 WBC 5.5 RBC 3.40 L Hgb 11.0 L Hct 31.7 L MCV 93 MCH 32.3 MCHC 34.6 RDW 14.0 Plt Count 191 Seg Neutrophils % 58.0 Lymphocytes % 23.1 Monocytes % 11.7 Eosinophils % 5.9 Basophils % 1.3 Absolute Neutrophils 3.2 Absolute Lymphocytes 1.3 Absolute Monocytes 0.6 Absolute Eosinophils 0.3 Absolute Basophils 0.1 Sodium 133.6 L Potassium 5.1 H Chloride 101 Carbon Dioxide 23 Anion Gap 10 BUN 30 H Creatinine 1.53 H Est GFR ( Amer) 39 L Est GFR (Non-Af Amer) 32 L Glucose 95 Calcium 9.5 Phosphorus 4.3 Magnesium 2.7 H Total Bilirubin 1.0 AST 53 H ALT 39 Alkaline Phosphatase 104 Total Protein 6.5 Albumin 3.5 Impressions: Lumbar Spine MRI 01/29/18 00:00 IMPRESSION: ADVANCED MULTILEVEL DEGENERATIVE CHANGE OF THE LUMBAR SPINE WITH SEVERE SPINAL CANAL STENOSIS AT THE L3-L4 AND L4-L5 LEVELS ALONG WITH MODERATE TO SEVERE MULTILEVEL NEURAL FORAMINAL NARROWING. SURGICAL CONSULTATION IS RECOMMENDED GIVEN PATIENT'S SYMPTOMS. Abdomen/Pelvis CT 01/29/18 14:19 IMPRESSION: Diverticulosis coli. No acute findings are seen in the abdomen or pelvis. Scoliosis. Anterolisthesis. Degenerative disc disease and spondylosis. Chest CT 01/29/18 14:19 IMPRESSION: NO SIGNIFICANT FINDING ON NON-CONTRASTED CHEST CT. Plan Discharge Plan: She will be transferred to [facility] as soon as a bed is found. Time Spent: Greater than 30 Minutes
[2018-01-30] MEDS: HYDRALAZINE HCL 50 MG TABLET PO SCH (11:04)
[2018-01-30] MEDS ORDERED: DEXAMETHASONE SOD PHOS INJ 10 MG/1 ML VIAL IV ONE (13:30)
[2018-01-30 14:41] VITALS: BP 115/90
[2018-01-31] MEDS ORDERED: AMIODARONE HCL 200 MG TABLET PO SCH (10:00)
== END 2018-01-30 15:29 | disposition short-term general hospital (02) | DRG 684 ==
LOC: ER 12:27 → EH 16:39 → 5 18:37
PROVIDERS: ADMIT Internal Medicine; ATTEND Internal Medicine
DX: N17.0 Acute kidney failure with tubular necrosis (principal); E87.5 Hyperkalemia; I49.5 Sick sinus syndrome; L89.512 Pressure ulcer of right ankle, stage 2; L89.892 Pressure ulcer of other site, stage 2; E78.5 Hyperlipidemia, unspecified; I48.2 Chronic atrial fibrillation; I25.10 Atherosclerotic heart disease of native coronary artery without angina pectoris; I10 Essential (primary) hypertension; K21.9 Gastro-esophageal reflux disease without esophagitis; M48.061 Spinal stenosis, lumbar region without neurogenic claudication; R33.9 Retention of urine, unspecified; F41.8 Other specified anxiety disorders; R10.9 Unspecified abdominal pain; I25.2 Old myocardial infarction; Z79.82 Long term (current) use of aspirin; Z79.899 Other long term (current) drug therapy
CPT/HCPCS: 36415; 71250; 72148; 74176; 80048; 80053; 80076; 81001; 83690; 83735; 84100; 85025; 85610; 85730; 87040; 99285; J1100; J3490

== ENCOUNTER → 2018-03-06 | Outpatient (CLI) | payer MEDICARE ==
[2018-03-06 10:36] LABS: ABSOLUTE BASOPHILS # (AUTO) 0.1 10^3/uL (0.0-0.2); ABSOLUTE EOSINOPHILS # (AUTO) 1.9 10^3/uL (0.0-0.6); ABSOLUTE LYMPHOCYTES (AUTO) 1.4 10^3/uL (0.5-4.7); ABSOLUTE MONOCYTES (AUTO) 0.6 10^3/uL (0.1-1.4); ABSOLUTE NEUT (AUTO) 5.5 10^3/uL (1.7-8.2); BASOPHILS % (AUTO) 0.7 % (0-2); EOSINOPHILS % (AUTO) 20.4 % (0-6); HEMATOCRIT 34.5 % (36.0-47.0); HEMOGLOBIN 11.7 g/dL (12.0-15.5); LYMPHOCYTES % (AUTO) 14.6 % (13-45); MEAN CORPUSCULAR HEMOGLOBIN 32.2 pg (27.0-33.4); MEAN CORPUSCULAR VOLUME 95 fl (80-97); MONOCYTES % (AUTO) 6.5 % (3-13); PLATELET COUNT 194 10^3/uL (150-450); RED BLOOD COUNT 3.65 10^6/uL (3.72-5.28); SEGMENTED NEUTROPHILS % (AUTO) 57.8 % (42-78); TOTAL CELLS COUNTED % (AUTO) 100 %; WHITE BLOOD COUNT 9.5 10^3/uL (4.0-10.5)
[2018-03-06 11:05] LABS: ANION GAP 13 (5-19); BLOOD UREA NITROGEN 25 mg/dL (7-20); CALCIUM 9.7 mg/dL (8.4-10.2); CARBON DIOXIDE 25 mmol/L (22-30); CHLORIDE 107 mmol/L (98-107); GLUCOSE 173 mg/dL (75-110); IRON(TIBC) 101.3 ug/dL (37-170); POTASSIUM 4.5 mmol/L (3.6-5.0); SODIUM 144.9 mmol/L (137-145)
[2018-03-06 12:11] LABS: FOLATE > 20.00 ng/mL (>2.76)
== END ==
LOC: OD 09:50
PROVIDERS: ATTEND Family Medicine
DX: N17.8 Other acute kidney failure (principal); D64.89 Other specified anemias; E61.1 Iron deficiency
CPT/HCPCS: 36415; 80048; 82040; 82607; 82746; 83540; 83550; 85025

== ENCOUNTER → 2018-03-14 | Outpatient (CLI) | payer MEDICARE ==
--- NOTE | 2018-03-14 12:05 | RADIOLOGY REPORT (SQ) ---
EXAM DESCRIPTION: ANKLE RIGHT COMPLETE COMPLETED DATE/TIME: 03/14/2018 11:06 am REASON FOR STUDY: PRESSURE ULCER OF RIGHT ANKLE, UNSTAGEABLE L89.510 PRESSURE ULCER OF RIGHT ANKLE, UNSTAGEABLE COMPARISON: None. NUMBER OF VIEWS: Three views. TECHNIQUE: AP, lateral, and oblique radiographic images acquired of the right ankle. LIMITATIONS: None. FINDINGS: MINERALIZATION: Normal. BONES: No fracture. No aggressive bony demineralization worrisome for osteomyelitis over the distal fibula. JOINTS: No effusions. SOFT TISSUES: Soft tissue ulcer over the lateral malleolus. Atherosclerotic arterial vascular calcif ication. OTHER: No other significant finding. IMPRESSION: Soft tissue ulcer over the lateral malleolus without aggressive bony demineralization or periostitis to suggest osteomyelitis. No fracture. TECHNICAL DOCUMENTATION: JOB ID: [id number] [employer]- All Rights Reserved Reading location - IP/workstation name: [email or web address]
== END ==
LOC: OD 10:48
PROVIDERS: ATTEND Nurse Practitioner
DX: L89.510 Pressure ulcer of right ankle, unstageable (principal)

== ENCOUNTER → 2018-03-23 | Outpatient (CLI) | payer MEDICARE ==
[2018-03-23 09:20] LABS: ANION GAP 13 (5-19); BLOOD UREA NITROGEN 19 mg/dL (7-20); CALCIUM 9.5 mg/dL (8.4-10.2); CARBON DIOXIDE 25 mmol/L (22-30); CHLORIDE 107 mmol/L (98-107); GLUCOSE 122 mg/dL (75-110); POTASSIUM 4.3 mmol/L (3.6-5.0); SODIUM 144.8 mmol/L (137-145)
== END ==
LOC: OD 08:15
PROVIDERS: ATTEND Internal Medicine Cardiovascular Disease
DX: I10 Essential (primary) hypertension (principal); Z79.899 Other long term (current) drug therapy
CPT/HCPCS: 36415; 80048

== ENCOUNTER → 2018-04-03 | Outpatient (CLI) | payer MEDICARE ==
--- NOTE | 2018-04-03 15:09 | RADIOLOGY REPORT (SQ) ---
EXAM DESCRIPTION: CHEST 2 VIEWS COMPLETED DATE/TIME: 04/03/2018 2:04 pm REASON FOR STUDY: SHORTNESS OF BREATH COMPARISON: 04/26/2016 EXAM PARAMETERS: NUMBER OF VIEWS: two views TECHNIQUE: Digital Frontal and Lateral radiographic views of the chest acquired. RADIATION DOSE: NA LIMITATIONS: none FINDINGS: LUNGS AND PLEURA: No opacities, masses or pneumothorax. No pleural effusion. MEDIASTINUM AND HILAR STRUCTURES: No masses or contour abnormalities. HEART AND VASCULAR STRUCTURES: Heart normal size. No evidence for failure. BONES: No acute findings. HARDWARE: Sternal wires. OTHER: No other significant finding. IMPRESSION: NO ACUTE RADIOGRAPHIC FINDING IN THE CHEST. TECHNICAL DOCUMENTATION: JOB ID: [id number] [employer]- All Rights Reserved Reading location - IP/workstation name: [email or web address]
--- NOTE | 2018-04-03 15:09 | RADIOLOGY REPORT (SQ) ---
EXAM DESCRIPTION: FOOT LEFT COMPLETE COMPLETED DATE/TIME: 04/03/2018 2:04 pm REASON FOR STUDY: PAIN IN LEFT FOOT L89.513 PRESSURE ULCER OF RIGHT ANKLE, STAGE 3 COMPARISON: None. NUMBER OF VIEWS: Three views. TECHNIQUE: AP, lateral and oblique without weight bearing radiographic images acquired of the left f oot. LIMITATIONS: None. FINDINGS: MINERALIZATION: Generalized osteopenia. BONES: No acute fracture or dislocation. No worrisome bone lesions. No significant osteophytes. JOINTS: No erosions. No indra-articular osteopenia. No chondrocalcinosis. SOFT TISSUES: No swelling. No calcifications. OTHER: No other significant finding. IMPRESSION: No significant finding. No changes to suggest osteomyelitis. TECHNICAL DOCUMENTATION: JOB ID: [id number] [employer]- All Rights Reserved Reading location - IP/workstation name: [email or web address]
--- NOTE | 2018-04-04 17:21 | XCELERA REPORT ---
[address] [address] Lower Extremity Arterial Evaluation Name: KATIE LANCASTER Age: 82 yrs Gender: Female : 1935 Patient Status: Outpatient Patient Location: Study Date: 04/03/2018 02:24 PM Procedure: A color flow and duplex scan of the lower extremity arteries was performed bilaterally with velocity and waveform anaylsis. Ankle brachial indicies performed. Reason For Study: ULCER Ordering Physician: JERI PAUL Performed By: Nader Ponce Measurements and Calculations Right Left NURSE STAFF INDUSTRIAL PSV 119.4 131.2 cm/sec Prox PFA PSV -143.0 -134.1cm/sec Prox SFA PSV 104.3 108.9 cm/sec Mid SFA PSV -114.1 -114.4cm/sec Dist SFA PSV -76.1 -91.1 cm/sec Prox Pop A PSV 64.0 81.0 cm/sec Dist EMIL PSV 93.2 93.8 cm/sec Dist SIDING INSTALLER PSV 104.2 27.4 cm/sec David Pedis PSV -185.1 -123.0cm/sec Right Side Arterial Evaluation Normal velocity and waveforms from the Common Femoral down to the infrageniculate vessels. Ankle Brachial index was not obtainable due to non compressibility. Left Side Arterial Evaluation Normal velocity and waveforms from the Common Femoral down to the Anterior Tibial artery. Biphasic in the Posterior Tibial. Ankle Brachial index was not obtainable due to non compressibility. Interpretation Summary No hemodynamically significant lesions in the right lower extremity only, on duplex imaging, at rest. Mild hemodynamically significant lesions in the left lower extremity only, on duplex imaging, at rest. Non compressibility may suggest presence of Atherosclerosis. : JERI PAUL > Anthony Baker
== END ==
LOC: SP 13:36
PROVIDERS: ATTEND Nurse Practitioner
DX: L89.513 Pressure ulcer of right ankle, stage 3 (principal); M79.672 Pain in left foot; R06.02 Shortness of breath; I48.0 Paroxysmal atrial fibrillation
CPT/HCPCS: 71046; 93925

== ENCOUNTER 2018-04-06 15:38 | Emergency (ER) | payer MEDICARE ==
--- NOTE | 2018-04-06 16:49 | ER Document Report ---
ED Medical Screen (RME) - General Chief Complaint: Weakness Stated Complaint: WEAK, BLOOD PRESSURE ISSUE Time Seen by Provider: 04/06/18 16:46 Mode of Arrival: Wheelchair TRAVEL OUTSIDE OF THE [place] IN LAST 30 DAYS: No - HPI Patient complains to provider of: low BP, weakness, confusion Onset: This afternoon - pt with episode of weakness, confusion, and low BP earlier today - Related Data Allergies/Adverse Reactions: JUDI Inhibitors Allergy (Verified 04/06/18 16:00) azithromycin Allergy (Verified 04/06/18 16:00) cephalexin Allergy (Verified 04/06/18 16:00) chlorthalidone Allergy (Verified 04/06/18 16:00) doxycycline Allergy (Verified 04/06/18 16:00) hydrochlorothiazide Allergy (Verified 04/06/18 16:00) hydrocodone Allergy (Verified 04/06/18 16:00) hydromorphone [From Dilaudid] Allergy (Verified 04/06/18 16:00) metformin Allergy (Verified 04/06/18 16:00) nitrofurantoin [From Macrobid] Allergy (Verified 04/06/18 16:00) promethazine Allergy (Verified 04/06/18 16:00) lisenoys Allergy (Uncoded 04/06/18 16:00) Past Medical History - Social History Chew tobacco use (# tins/day): No Frequency of alcohol use: None Drug Abuse: None - Past Medical History Cardiac Medical History: Reports: Hx Atrial Fibrillation, Hx Coronary Artery Disease, Hx Heart Attack - NSTEMI, Hx Hypercholesterolemia, Hx Hypertension Pulmonary Medical History: Reports: Hx COPD Endocrine Medical History: Denies: Hx Diabetes Mellitus Type 2 Renal/ Medical History: Denies: Hx Peritoneal Dialysis Malignancy Medical History: Reports: Hx Breast Cancer GI Medical History: Reports: Hx Diverticulitis, Hx Gastroesophageal Reflux Disease, Hx Irritable Bowel Musculoskeltal Medical History: Reports Hx Arthritis Psychiatric Medical History: Reports: Hx Depression - anxiety Past Surgical History: Reports: Hx Cardiac Catheterization - 2 stent, Hx Cardiac Surgery - double bypass, 2 stents, Hx Cholecystectomy, Hx Coronary Artery Bypass Graft, Hx Open Heart Surgery, Other - conoscopy, EGD - Immunizations Hx Diphtheria, Pertussis, Tetanus Vaccination: Yes History of Influenza Vaccine for 05/2017 - 10/2017 Season: Yes Influenza Administration Date for 05/2017 - 10/2017 Season: 05/28/17 Physical Exam - Vital signs Vitals: Temp Pulse Resp BP Pulse Ox 98.5 F 52 L 16 146/67 H 97 04/06/18 16:01 04/06/18 16:01 04/06/18 16:01 04/06/18 16:01 04/06/18 16:01 Course - Vital Signs Vital signs: Temp Pulse Resp BP Pulse Ox 98.5 F 52 L 16 146/67 H 97 04/06/18 16:01 04/06/18 16:01 04/06/18 16:01 04/06/18 16:01 04/06/18 16:01 Doctor's Discharge - Discharge Referrals: IRVING CAMPBELL MD [Primary Care Provider] - Follow up as needed
[2018-04-06 17:37] LABS: ABSOLUTE BASOPHILS # (AUTO) 0.1 10^3/uL (0.0-0.2); ABSOLUTE EOSINOPHILS # (AUTO) 0.9 10^3/uL (0.0-0.6); ABSOLUTE LYMPHOCYTES (AUTO) 1.6 10^3/uL (0.5-4.7); ABSOLUTE MONOCYTES (AUTO) 0.5 10^3/uL (0.1-1.4); ABSOLUTE NEUT (AUTO) 3.1 10^3/uL (1.7-8.2); BASOPHILS % (AUTO) 1.5 % (0-2); EOSINOPHILS % (AUTO) 14.4 % (0-6); HEMATOCRIT 33.8 % (36.0-47.0); HEMOGLOBIN 11.4 g/dL (12.0-15.5); LYMPHOCYTES % (AUTO) 25.3 % (13-45); MEAN CORPUSCULAR HEMOGLOBIN 31.8 pg (27.0-33.4); MEAN CORPUSCULAR HGB CONC 33.8 g/dL (32.0-36.0); MEAN CORPUSCULAR VOLUME 94 fl (80-97); MONOCYTES % (AUTO) 8.8 % (3-13); PLATELET COUNT 181 10^3/uL (150-450); RED BLOOD COUNT 3.59 10^6/uL (3.72-5.28); RED CELL DISTRIBUTION WIDTH 13.7 % (11.5-14.0); TOTAL CELLS COUNTED % (AUTO) 100 %; WHITE BLOOD COUNT 6.3 10^3/uL (4.0-10.5)
[2018-04-06 17:50] LABS: ALANINE AMINOTRANSFERASE 46 U/L (9-52); ALKALINE PHOSPHATASE 121 U/L (38-126); ANION GAP 12 (5-19); ASPARTATE AMINO TRANSFERASE 56 U/L (14-36); BILIRUBIN,DIRECT 0.2 mg/dL (0.0-0.4); BILIRUBIN,TOTAL 1.2 mg/dL (0.2-1.3); BLOOD UREA NITROGEN 23 mg/dL (7-20); CALCIUM 9.5 mg/dL (8.4-10.2); CARBON DIOXIDE 26 mmol/L (22-30); CHLORIDE 104 mmol/L (98-107); CREATINE KINASE 260 U/L (30-135); GLUCOSE 102 mg/dL (75-110); POTASSIUM 4.7 mmol/L (3.6-5.0); SODIUM 141.9 mmol/L (137-145); TOTAL PROTEIN 6.7 g/dL (6.3-8.2)
[2018-04-06 18:02] LABS: CREATINE KINASE MB 3.75 ng/mL (<4.55); TROPONIN I < 0.012 ng/mL
--- NOTE | 2018-04-06 18:27 | RADIOLOGY REPORT (SQ) ---
EXAM DESCRIPTION: CT HEAD WITHOUT COMPLETED DATE/TIME: 04/06/2018 6:03 pm REASON FOR STUDY: confusion COMPARISON: 07/03/2017 TECHNIQUE: Axial images acquired through the brain without intravenous contrast. Images reviewed wi th bone, brain and subdural windows. Additional sagittal and coronal reconstructions were generated. Images stored on PACS. All CT scanners at this facility use dose modulation, iterative reconstruction, and/or weight based d osing when appropriate to reduce radiation dose to as low as reasonably achievable (ALARA). [facility]: Dose Right [facility]: CareDose [facility]: Dose Right [facility]: Teradose 4D [facility]: Smart Patronpath RADIATION DOSE: CT Rad equipment meets quality standard of care and radiation dose reduction techniq ues were employed. CTDIvol: 53.2 mGy. DLP: 1044 mGy-cm. mGy. LIMITATIONS: None. FINDINGS: VENTRICLES: Normal size and contour. CEREBRUM: No masses. No hemorrhage. No midline shift. No evidence for acute infarction. Normal gra y/white matter differentiation. No areas of low density in the white matter. CEREBELLUM: No masses. No hemorrhage. No alteration of density. No evidence for acute infarction. EXTRAAXIAL SPACES: No fluid collections. No masses. ORBITS AND GLOBE: No intra- or extraconal masses. Normal contour of globe without masses. CALVARIUM: No fracture. PARANASAL SINUSES: No fluid or mucosal thickening. SOFT TISSUES: No mass or hematoma. OTHER: No other significant finding. IMPRESSION: NORMAL BRAIN CT WITHOUT CONTRAST. EVIDENCE OF ACUTE STROKE: NO. COMMENT: Quality ID # [id number]: Final reports with documentation of one or more dose reduction techniques (e.g., Automated exposure control, adjustment of the mA and/or kV according to patient size, use of iterative reconstruction technique) TECHNICAL DOCUMENTATION: JOB ID: [id number] [employer]- All Rights Reserved Reading location - IP/workstation name: [email or web address]
--- NOTE | 2018-04-06 19:31 | ER Document Report ---
ED General - General Mode of Arrival: Wheelchair Information source: Patient, Relative TRAVEL OUTSIDE OF THE [place] IN LAST 30 DAYS: No <TED KNUTSON - Last Filed: 04/06/18 20:38> <QUIN LITTLE - Last Filed: 04/06/18 23:43> - General Chief Complaint: Weakness Stated Complaint: WEAK, BLOOD PRESSURE ISSUE Time Seen by Provider: 04/06/18 16:46 Notes: Patient is an 82 year old female with A. fib, CAD, [place], HTN presents to the emergency department accompanied by daughter complaining of hypotension, lightheadedness and fatigue onset today. Daughter at bedside states the patient began physical therapy around 1300 today and had blood pressure of 90/50. She states after about 20 minutes of physical therapy the patient's blood pressure was checked again and was found to have a blood pressure of 90/48. Patient states during this time she was asymptomatic and proceeded with a physical therapy. At around 14:45 daughter states the patient told her she was feeling very weak, light headed and drooling out the side of her mouth. She states at that time the patient denied falling asleep although at bedside, patient states she was "dozing off and on". At bedside, patient states she feels great. Patient denies any focal pain, numbness or tingling sensations, chest pain, recent falls or head injuries, nausea, vomiting, or diarrhea. Daughter states the patient's x ray consultant is Dr. Mann. She states the patinet was orginally on 100 mg of Losartan daily and 100 mg of Hydralazine daily but switched to 50 mg of Losartan daily and 50 mg of Hydralazine 2x daily after a fall and rehab for physical therapy. (TED KNUTSON) - Related Data Allergies/Adverse Reactions: JUDI Inhibitors Allergy (Verified 04/06/18 16:00) azithromycin Allergy (Verified 04/06/18 16:00) cephalexin Allergy (Verified 04/06/18 16:00) chlorthalidone Allergy (Verified 04/06/18 16:00) doxycycline Allergy (Verified 04/06/18 16:00) hydrochlorothiazide Allergy (Verified 04/06/18 16:00) hydrocodone Allergy (Verified 04/06/18 16:00) hydromorphone [From Dilaudid] Allergy (Verified 04/06/18 16:00) metformin Allergy (Verified 04/06/18 16:00) nitrofurantoin [From Macrobid] Allergy (Verified 04/06/18 16:00) promethazine Allergy (Verified 04/06/18 16:00) lisenoys Allergy (Uncoded 04/06/18 16:00) Past Medical History - General Information source: Patient - Social History Smoking Status: Never Smoker Chew tobacco use (# tins/day): No Frequency of alcohol use: None Drug Abuse: None Family History: Reviewed & Not Pertinent Patient has suicidal ideation: No Patient has homicidal ideation: No - Past Medical History Cardiac Medical History: Reports: Hx Atrial Fibrillation, Hx Coronary Artery Disease, Hx Heart Attack - NSTEMI, Hx Hypercholesterolemia, Hx Hypertension Pulmonary Medical History: Reports: Hx COPD Malignancy Medical History: Reports: Hx Breast Cancer GI Medical History: Reports: Hx Diverticulitis, Hx Gastroesophageal Reflux Disease, Hx Irritable Bowel Musculoskeletal Medical History: Reports Hx Arthritis Psychiatric Medical History: Reports: Hx Depression - anxiety Past Surgical History: Reports: Hx Cardiac Catheterization - 2 stent, Hx Cardiac Surgery - double bypass, 2 stents, Hx Cholecystectomy, Hx Coronary Artery Bypass Graft, Hx Open Heart Surgery, Other - conoscopy, EGD - Immunizations Hx Diphtheria, Pertussis, Tetanus Vaccination: Yes <TED KNUTSON - Last Filed: 04/06/18 20:38> Review of Systems - Review of Systems Constitutional: See HPI, Weakness EENT: No symptoms reported Cardiovascular: No symptoms reported Respiratory: No symptoms reported Gastrointestinal: No symptoms reported Genitourinary: No symptoms reported Female Genitourinary: No symptoms reported Musculoskeletal: No symptoms reported Skin: No symptoms reported Hematologic/Lymphatic: No symptoms reported Neurological/Psychological: No symptoms reported -: Yes All other systems reviewed and negative <TED KNUTSON - Last Filed: 04/06/18 20:38> Physical Exam <TED KNUTSON - Last Filed: 04/06/18 20:38> <QUIN LITTLE - Last Filed: 04/06/18 23:43> - Vital signs Vitals: Temp Pulse Resp BP Pulse Ox 98.5 F 52 L 16 146/67 H 97 04/06/18 16:01 04/06/18 16:01 04/06/18 16:01 04/06/18 16:04/06/18 16:01 - Notes Notes: GENERAL: Alert, interacts well. No acute distress. HEAD: Normocephalic, atraumatic. EYES: Pupils equal, round, and reactive to light. Extraocular movements intact. ENT: Oral mucosa dry, tongue midline. NECK: Full range of motion. Supple. Trachea midline. LUNGS: Clear to auscultation bilaterally, no wheezes, rales, or rhonchi. No respiratory distress. HEART: Regular rate and rhythm. No murmurs, gallops, or rubs. ABDOMEN: Soft, non-tender. Non-distended. Bowel sounds present in all 4 quadrants. EXTREMITIES: Moves all 4 extremities spontaneously. 5/5 membership solicitor strength bilaterally. 5/5 motor strength. Sensations intact bilaterally. No edema or cyanosis. NEUROLOGICAL: Alert and oriented x3. Normal speech. PSYCH: Normal affect, normal mood. SKIN: Warm, dry, normal turgor. No rashes or lesions noted. (TED KNUTSON) Course - Laboratory Result Diagrams: 04/06/18 17:21 04/06/18 17:21 <TED KNUTSON - Last Filed: 04/06/18 20:38> - Laboratory Result Diagrams: 04/06/18 17:21 04/06/18 17:21 - EKG Interpretation by In EKG shows normal: Sinus rhythm Rate: Bradycardia Rhythm: NSR - Normal intervals and axis <QUIN LITTLE H - Last Filed: 04/06/18 23:43> - Re-evaluation Re-evalutation: 04/06/18 20:35 Patient well-appearing in no acute distress is asymptomatic in the emergency department. Apparently, patient had episodes of hypotension earlier in the day that resolved and have not presented themselves in the emergency department. She has had problems with her antihypertensives in the past per the daughter and they have been adjusted by her x ray consultant in the past. Her labs and EKG showed no concerning findings. Patient is asymptomatic emergency department. I suggested to the daughter is a blood pressure cuff at the house to take blood pressure in the morning prior to medicine administration then take it at noon and then take it again at night and create a log to see if her blood pressure may be dipping after morning medications. She is to follow-up with her x ray consultant if this indeed is happening. She was also found to have a urinary tract infection which we treated with Keflex. Return precautions provided. 04/06/18 20:49 Of note, patient was also noted to have bradycardia but while being monitored at bedside her bradycardia was not related to the hypotension as she was not hypotensive in the emergency department. I discussed with daughter to also monitor her heart rate when she takes her blood pressure and keep this in the log as well. (QUNI LITTLE) - Vital Signs Vital signs: Temp Pulse Resp BP Pulse Ox 97.8 F 52 L 9 L 188/74 H 98 04/06/18 21:18 04/06/18 16:01 04/06/18 21:18 04/06/18 21:18 04/06/18 21:18 - Laboratory Laboratory results interpreted by me: 04/06/18 04/06/18 04/06/18 17:21 17:21 17:21 RBC 3.59 L Hgb 11.4 L Hct 33.8 L Eosinophils % 14.4 H Absolute Eosinophils 0.9 H BUN 23 H Est GFR (Non-Af Amer) 50 L AST 56 H Creatine Kinase 260 H Urine Urobilinogen 4.0 H Ur Leukocyte Esterase LARGE H Discharge <TED KNUTSON - Last Filed: 04/06/18 20:38> <QUIN LITTLE - Last Filed: 04/06/18 23:43> - Discharge Clinical Impression: Well adult health check UTI (urinary tract infection) Qualifiers: Urinary tract infection type: site unspecified Hematuria presence: without hematuria Qualified Code(s): N39.0 - Urinary tract infection, site not specified Condition: Good Disposition: HOME, SELF-CARE Additional Instructions: Please take medications as prescribed for urinary tract infection. Please monitor your blood pressure over the next 3-5 days and if you find that blood pressure is dipping after medications taken in the morning please contact Dr. Mann to discuss. Prescriptions: Ciprofloxacin HCl [Cipro 500 mg Tablet] 500 mg PO BID #10 tablet Referrals: NAZIA MANN MD [[facility]] - Follow up in 3-5 days Scribe Attestation: 04/06/18 23:43 I personally performed the services described in the documentation, reviewed and edited the documentation which was dictated to the scribe in my presence, and it accurately records my words and actions. (QUIN LITTLE) Scribe Documentation - Scribe Written by Scribe:: Elias Dela Cruz, 04/06/2018 19:52 acting as scribe for :: Long <TED KNUTSON - Last Filed: 04/06/18 20:38>
[2018-04-06 19:44] LABS: APPEARANCE,URINE SLIGHTLY-CLOUDY; BILIRUBIN,URINE NEGATIVE (NEGATIVE); GLUCOSE, URINE NEGATIVE (NEGATIVE); KETONES,URINE NEGATIVE (NEGATIVE); LEUKOCYTE ESTERASE,URINE LARGE (NEGATIVE); NITRITE,URINE NEGATIVE (NEGATIVE); PROTEIN,URINE NEGATIVE (NEGATIVE); URINE SPECIFIC GRAVITY 1.016
[2018-04-06 19:46] LABS: COLOR,URINE YELLOW
[2018-04-06 21:22] VITALS: BP 188/74
--- NOTE | 2018-04-07 00:07 | EKG REPORT ---
SEVERITY:- OTHERWISE NORMAL ECG - SINUS BRADYCARDIA : Confirmed by: Angela Mathis MD 07-Apr-2018 00:06:55
== END 2018-04-06 21:24 | disposition home or self-care (01) ==
LOC: ER 15:38
DX: N39.0 Urinary tract infection, site not specified (principal); I25.10 Atherosclerotic heart disease of native coronary artery without angina pectoris; I25.2 Old myocardial infarction; I10 Essential (primary) hypertension; Z79.899 Other long term (current) drug therapy; R00.1 Bradycardia, unspecified; R42 Dizziness and giddiness; R53.83 Other fatigue; R53.1 Weakness; J44.9 Chronic obstructive pulmonary disease, unspecified; Z95.1 Presence of aortocoronary bypass graft; Z85.3 Personal history of malignant neoplasm of breast; Z95.5 Presence of coronary angioplasty implant and graft; Z88.8 Allergy status to other drugs, medicaments and biological substances; Z88.1 Allergy status to other antibiotic agents; Z88.5 Allergy status to narcotic agent
CPT/HCPCS: 36415; 70450; 80053; 81001; 82550; 82553; 84484; 85025; 93005; 93010; 99285

== ENCOUNTER → 2018-05-25 | Outpatient (CLI) | payer MEDICARE ==
--- NOTE | 2018-05-29 16:57 | Pulmonary Function Test ---
Pulmonary Function Test Date of Procedure:: 05/29/18 INDICATION:: Shortness of breath Referring Provider: Property Specialist: Angi Perrin CIAIO COUNTER MOLDER - Report Spirometry: FVC 2.22 L 92% FEV1 1.51 L 92% FEV1/FVC % 68% predicted 80 FEF 25-75% 1.08 L 90% Diffusion Capactity: Diffusion capacity 11.2 70% DLCO/VA 3.61 109% Impression: Mild obstructive ventilatory defect. Mild restrictive ventilatory defect
== END ==
LOC: RT 13:48
PROVIDERS: ATTEND Internal Medicine Cardiovascular Disease
DX: R06.02 Shortness of breath (principal); I10 Essential (primary) hypertension; I25.10 Atherosclerotic heart disease of native coronary artery without angina pectoris; E11.9 Type 2 diabetes mellitus without complications
CPT/HCPCS: 94010; 94729

== ENCOUNTER → 2018-06-19 | Outpatient (CLI) | payer MEDICARE ==
[2018-06-19 09:27] LABS: ANION GAP 9 (5-19); BLOOD UREA NITROGEN 23 mg/dL (7-20); CALCIUM 9.6 mg/dL (8.4-10.2); CARBON DIOXIDE 28 mmol/L (22-30); CHLORIDE 103 mmol/L (98-107); GLUCOSE 134 mg/dL (75-110); POTASSIUM 4.1 mmol/L (3.6-5.0); SODIUM 140.2 mmol/L (137-145)
[2018-06-19 09:28] LABS: ALANINE AMINOTRANSFERASE 41 U/L (9-52); ALKALINE PHOSPHATASE 131 U/L (38-126); ASPARTATE AMINO TRANSFERASE 65 U/L (14-36); BILIRUBIN,DIRECT 0.4 mg/dL (0.0-0.4); BILIRUBIN,TOTAL 1.3 mg/dL (0.2-1.3); TOTAL PROTEIN 6.9 g/dL (6.3-8.2)
== END ==
LOC: OD 07:44
PROVIDERS: ATTEND Internal Medicine Cardiovascular Disease
DX: I48.0 Paroxysmal atrial fibrillation (principal); Z79.899 Other long term (current) drug therapy
CPT/HCPCS: 36415; 80048; 80076; 83735; 84443

== ENCOUNTER 2018-07-26 11:11 | Emergency (ER) | payer MEDICARE ==
--- NOTE | 2018-07-26 12:47 | RADIOLOGY REPORT (SQ) ---
EXAM DESCRIPTION: CT HEAD WITHOUT COMPLETED DATE/TIME: 07/26/2018 12:36 pm REASON FOR STUDY: FALL/INJURY COMPARISON: 04/06/2018. TECHNIQUE: Axial images acquired through the brain without intravenous contrast. Images reviewed wi th bone, brain and subdural windows. Additional sagittal and coronal reconstructions were generated. Images stored on PACS. All CT scanners at this facility use dose modulation, iterative reconstruction, and/or weight based d osing when appropriate to reduce radiation dose to as low as reasonably achievable (ALARA). [facility]: Dose Right [facility]: CareDose [facility]: Dose Right [facility]: Teradose 4D [facility]: [place] RADIATION DOSE: mGy. LIMITATIONS: None. FINDINGS: VENTRICLES: Normal size and contour. CEREBRUM: No masses. No hemorrhage. No midline shift. No evidence for acute infarction. Normal gra y/white matter differentiation. No areas of low density in the white matter. CEREBELLUM: No masses. No hemorrhage. No alteration of density. No evidence for acute infarction. EXTRAAXIAL SPACES: No fluid collections. No masses. ORBITS AND GLOBE: No intra- or extraconal masses. Normal contour of globe without masses. CALVARIUM: No fracture. PARANASAL SINUSES: No fluid or mucosal thickening. SOFT TISSUES: No mass or hematoma. OTHER: No other significant finding. IMPRESSION: NORMAL BRAIN CT WITHOUT CONTRAST. EVIDENCE OF ACUTE STROKE: NO. COMMENT: Quality ID # [id number]: Final reports with documentation of one or more dose reduction techniques (e.g., Automated exposure control, adjustment of the mA and/or kV according to patient size, use of iterative reconstruction technique) TECHNICAL DOCUMENTATION: JOB ID: [id number]- All Rights Reserved Reading location - IP/workstation name: [facility]-RR
--- NOTE | 2018-07-26 12:56 | ER Document Report ---
ED Fall - General Chief Complaint: Fall Injury Stated Complaint: FALL Time Seen by Provider: 07/26/18 11:36 Mode of Arrival: Ambulatory Information source: Patient Notes: History of Present Illness Chief Complaint: [head injury] [ ] History obtained from [patient] 82 years old pleasant female who walks with a walker, she was trying to walk without the walker this morning and tripped on a piece of paper fell down hit her left side of the head. Since then developed discoloration around the left eye. No loss of consciousness currently has no headache. Denies any neck pain neck stiffness. Denies any injury to upper limbs or lower limb. She was ambulatory after the event. Denies any chest wall injury. Denies any difficulty in breathing. Denies any pain over the abdomen. Denies any pain over the thoracolumbar region. Symptoms began: [immediately prior to arrival] Onset: [sudden] Timing:[ constant] Quality: ["pain"] Intensity: [moderate] Mechanism:[ As above] Location: [ As above] Radiation: [none] Migration: [none] Aggravating factors: [none] Relieving factors: [none] Denies loss of consciousness Denies neck pain Denies numbness Denies weakness Denies change in vision Denies change in hearing Denies additional injuries Review of systems : All other systems negative as reviewed. CONSTITUTIONAL No Fever. EYES No eye pain. ENT No sore throat. CARDIOVASCULAR No chest pain. RESPIRATORY No SOB. GASTROINTESTINAL No abdominal pain, No rectal bleeding. GENITOURINARY No hematuria. MUSCULOSKELETAL No back pain. SKIN No rash. NEUROLOGIC No paralysis. HEMO/LYMPHATIC Patient does not bruise easily. Physical Exam CONSTITUTIONAL Vital signs reviewed, Comfortable, Alert and oriented X 3. HEAD [ ] Nontender, Atraumatic, Normal cephalic. EYES Periorbital contusion noted No discharge from eye, Sclera are not injected, Extraocular muscles intact, Conjunctiva are normal. Pupils equal, round, reactive to light, 2mm bilaterally. ENT Ears normal to inspection, Nose examination normal, Oropharynx normal, Mucous membranes pink, moist, normal in color. NECK No focal bony tenderness, patient is cleared from spinal precautions by Nexus criteria, Normal ROM, trachea midline. RESPIRATORY/CHEST Chest is non-tender, Breath sounds normal, No respiratory distress. CARDIOVASCULAR RRR, Heart sounds normal. ABDOMEN Abdomen is non-tender, No masses, Bowel sounds normal, No distension, No peritoneal signs. BACK No focal bony tenderness, Normal inspection. UPPER EXTREMITY Inspection normal, no focal bony tenderness, no snuff box tenderness, FROM of bilateral shoulders, elbows, wrists, fingers x 5, NVI distally, No cyanosis/ clubbing/edema. LOWER EXTREMITY Inspection normal, no focal bony tenderness, FROM of bilateral hips, knees, ankles, toes x 5, NVI distally, bilateral knees stable without effusion No cyanosis/clubbing/edema, No calf tenderness. NEURO Cranial Nerves intact, Normal speech, Motor exam normal, Sensory exam normal. SKIN Skin is warm and dry, No rash. PSYCHIATRIC Normal affect. TRAVEL OUTSIDE OF THE [place] IN LAST 30 DAYS: No - HPI Occurred: Just prior to arrival Notes: Dictated - Related data Allergies/Adverse Reactions: JUDI Inhibitors Allergy (Verified 04/06/18 16:00) azithromycin Allergy (Verified 04/06/18 16:00) cephalexin Allergy (Verified 04/06/18 16:00) chlorthalidone Allergy (Verified 04/06/18 16:00) doxycycline Allergy (Verified 04/06/18 16:00) hydrochlorothiazide Allergy (Verified 04/06/18 16:00) hydrocodone Allergy (Verified 04/06/18 16:00) hydromorphone [From Dilaudid] Allergy (Verified 04/06/18 16:00) metformin Allergy (Verified 04/06/18 16:00) nitrofurantoin [From Macrobid] Allergy (Verified 04/06/18 16:00) promethazine Allergy (Verified 04/06/18 16:00) lisenoys Allergy (Uncoded 04/06/18 16:00) Past Medical History - Social History Smoking Status: Never Smoker Chew tobacco use (# tins/day): No Frequency of alcohol use: None Drug Abuse: None Lives with: Family Family History: Reviewed & Not Pertinent Patient has suicidal ideation: No Patient has homicidal ideation: No - Past Medical History Cardiac Medical History: Reports: Hx Atrial Fibrillation, Hx Coronary Artery Disease, Hx Heart Attack - NSTEMI, Hx Hypercholesterolemia, Hx Hypertension Pulmonary Medical History: Reports: Hx COPD Endocrine Medical History: Denies: Hx Diabetes Mellitus Type 2 Renal/ Medical History: Denies: Hx Peritoneal Dialysis Malignancy Medical History: Reports: Hx Breast Cancer GI Medical History: Reports: Hx Diverticulitis, Hx Gastroesophageal Reflux Disease, Hx Irritable Bowel Musculoskeletal Medical History: Reports Hx Arthritis Psychiatric Medical History: Reports: Hx Depression - anxiety Past Surgical History: Reports: Hx Cardiac Catheterization - 2 stent, Hx Cardiac Surgery - double bypass, 2 stents, Hx Cholecystectomy, Hx Coronary Artery Bypass Graft, Hx Open Heart Surgery, Other - conoscopy, EGD - Immunizations Hx Diphtheria, Pertussis, Tetanus Vaccination: Yes Review of Systems - Review of Systems Notes: Dictated Physical Exam - Vital signs Vitals: Temp Pulse Resp BP Pulse Ox 97.6 F 65 16 143/55 H 92 07/26/18 11:19 07/26/18 11:19 07/26/18 11:19 07/26/18 11:19 07/26/18 11:19 - Notes Notes: Dictated Course - Vital Signs Vital signs: Temp Pulse Resp BP Pulse Ox 97.6 F 65 16 143/55 H 92 07/26/18 11:19 07/26/18 11:19 07/26/18 11:19 07/26/18 11:19 07/26/18 11:19 - Diagnostic Test Radiology reviewed: Reports reviewed - CT of the head reported by radiologist as no intracranial bleed Discharge - Discharge Clinical Impression: Fall Qualifiers: Encounter type: initial encounter Qualified Code(s): W19.XXXA - Unspecified fall, initial encounter Periorbital contusion of left eye Qualifiers: Encounter type: initial encounter Qualified Code(s): S05.12XA - Contusion of eyeball and orbital tissues, left eye, initial encounter Condition: Fair Disposition: HOME, SELF-CARE Instructions: Contusion ([facility]), Head Injury Precautions ([facility]) Referrals: NAZIA LIZARRAGA MD [Primary Care Provider] - Follow up as needed
[2018-07-26 13:15] VITALS: BP 141/67
== END 2018-07-26 13:10 | disposition home or self-care (01) ==
LOC: ER 11:11
DX: S05.12XA Contusion of eyeball and orbital tissues, left eye, initial encounter (principal); I25.10 Atherosclerotic heart disease of native coronary artery without angina pectoris; I10 Essential (primary) hypertension; I25.2 Old myocardial infarction; E78.00 Pure hypercholesterolemia, unspecified; F41.9 Anxiety disorder, unspecified; F32.9 Major depressive disorder, single episode, unspecified; J44.9 Chronic obstructive pulmonary disease, unspecified; K21.9 Gastro-esophageal reflux disease without esophagitis; Z95.1 Presence of aortocoronary bypass graft; Z88.8 Allergy status to other drugs, medicaments and biological substances; Z88.1 Allergy status to other antibiotic agents; Z88.6 Allergy status to analgesic agent; Z88.2 Allergy status to sulfonamides; Z88.9 Allergy status to unspecified drugs, medicaments and biological substances; W01.10XA Fall on same level from slipping, tripping and stumbling with subsequent striking against unspecified object, initial encounter; Y92.9 Unspecified place or not applicable
CPT/HCPCS: 70450; 99283

== ENCOUNTER 2018-07-30 15:54 | Emergency (ER) | payer MEDICARE ==
--- NOTE | 2018-07-30 17:40 | ER Document Report ---
HPI - HPI Patient complains to provider of: wound recheck Time Seen by Provider: 07/30/18 17:24 Onset: Other - 07/26/2018 Onset/Duration: Intermittent Quality of pain: Achy Severity: None Pain Level: Denies Associated Symptoms: Other - Patient is concerned that the scab on her face is a big hole in her face and she is going to Exacerbated by: Denies Relieved by: Denies Similar symptoms previously: Yes Recently seen / treated by doctor: Yes - ROS ROS below otherwise negative: Yes - CONSTITUTIONAL Constitutional: DENIES: Fever, Chills - EENT EENT: DENIES: Sore Throat, Ear Pain, Nasal Drainage-Clear, Nasal Drainage- Purulent, Congestion, Eye problems - NEURO Neurology: DENIES: Headache, Weakness, Vision blurred, Dizzinesss / Vertigo - CARDIOVASCULAR Cardiovascular: DENIES: Chest pain - RESPIRATORY Respiratory: DENIES: Trouble Breathing, Coughing - GASTROINTESTINAL Gastrointestinal: DENIES: Abdominal Pain, Nausea, Patient vomiting, Diarrhea, Constipation, Black / Bloody Stools - URINARY Urinary: DENIES: Dysuria, Urgency, Frequency - REPRODUCTIVE Reproductive: DENIES: :, Postmenopausal, Abnormal bleeding / discharge - MUSCULOSKELETAL Musculoskeletal: DENIES: Extremity pain, Back Pain, Neck Pain, Swelling - DERM Skin Color: Ecchymosis - Face Skin Problems: None Past Medical History - General Information source: Patient, Relative - Social History Smoking Status: Never Smoker Cigarette use (# per day): No Chew tobacco use (# tins/day): No Smoking Education Provided: No Frequency of alcohol use: None Drug Abuse: None Lives with: Family Family History: Reviewed & Not Pertinent Patient has suicidal ideation: No Patient has homicidal ideation: No - Past Medical History Cardiac Medical History: Reports: Hx Atrial Fibrillation, Hx Coronary Artery Disease, Hx Heart Attack - NSTEMI, Hx Hypercholesterolemia, Hx Hypertension Pulmonary Medical History: Reports: Hx COPD EENT Medical History: Reports: None Neurological Medical History: Reports: None Endocrine Medical History: Reports: None Renal/ Medical History: Reports: None Malignancy Medical History: Reports: Hx Breast Cancer GI Medical History: Reports: Hx Diverticulitis, Hx Gastroesophageal Reflux Disease, Hx Irritable Bowel Musculoskeletal Medical History: Reports Hx Arthritis Skin Medical History: Reports None Psychiatric Medical History: Reports: Hx Depression - anxiety Traumatic Medical History: Reports: None Infectious Medical History: Reports: None Past Surgical History: Reports: Hx Cardiac Catheterization - 2 stent, Hx Cardiac Surgery - double bypass, 2 stents, Hx Cholecystectomy, Hx Coronary Artery Bypass Graft, Hx Open Heart Surgery, Other - conoscopy, EGD - Immunizations Hx Diphtheria, Pertussis, Tetanus Vaccination: Yes Vertical Provider Document - CONSTITUTIONAL Agree With Documented VS: Yes Exam Limitations: No Limitations General Appearance: WD/WN, No Apparent Distress - INFECTION CONTROL TRAVEL OUTSIDE OF THE [place] IN LAST 30 DAYS: No - HEENT HEENT: Normal ENT Exam. negative: Atraumatic, Normocephalic Notes: Bruising to the face with scabbed area to the left cheek. Large bruise to the left cheek. Daughter states that the bruising and swelling is actually much better than last time she was here. Patient concerned that the scab on her left cheek is a big hole and she is going to bleed. - NECK Neck: Normal Inspection - RESPIRATORY Respiratory: Breath Sounds Normal, No Respiratory Distress - CARDIOVASCULAR Cardiovascular: Regular Rate, Regular Rhythm - MUSCULOSKELETAL/EXTREMETIES Musculoskeletal/Extremeties: MAEW, FROM, Tender, Eccymosis - Tender to her face ecchymosis to her face - NEURO Level of Consciousness: Awake, Alert - DERM Integumentary: Warm, Dry, No Rash Course - Re-evaluation Re-evalutation: 07/30/18 20:40 Face cleaned to show patient that she did not have a big hole in her face. Patient was reassured that the bruises were actually improving. Patient was happy to go home after she knew she did not have a big hole in her face. - Vital Signs Vital signs: Temp Pulse Resp BP Pulse Ox 97.9 F 81 12 112/53 L 97 07/30/18 16:01 07/30/18 16:01 07/30/18 16:01 07/30/18 16:01 07/30/18 16:01 Discharge - Discharge Clinical Impression: wound recheck to face Condition: Stable Disposition: HOME, SELF-CARE Additional Instructions: You were seen today for recheck to the wound to your face There are no signs or symptoms of infection at this time. There is a small scab to the abrasion from last week. Please do not remove the scab let it heal and fall off on its own. Clean the wound with soap and water rinse with clear water and apply bacitracin to the area ANTIBIOTIC OINTMENT PROTECTION: Your wounds are such that dressing them is not practical or optional. After cleansing, you should apply a thin coating of antibiotic ointment ( Bacitracin, not Neosporin) to the wounds at least three times daily. This lessens infection risk, and may decrease the amount of scarring. Use a q-tip or dull butter knife, not your finger, to apply this ointment. Any debris or ooze which builds up in the ointment should be gently rubbed off with a sterile gauze pad. Harder crusting may need to be gently scrubbed off with a clean wash cloth with soap and warm water, perhaps applying a warm, wet wash cloth to the wound for ten minutes first. Development of redness, severe itching, or blistering may mean allergy to the ointment. See the doctor. Please keep your follow-up appointment with your physician tomorrow and he can reexamine your wound to your face. FOLLOW-UP CARE: If you have been referred to another physician for follow-up care, call that physicians office for an appointment as you were instructed. If you experience a significant change in your laceration, or if you are concerned there may be an infection (swelling, redness, drainage, increasing tenderness, red streaks, tender lumps in the armpit or groin above the laceration, or fever) , return to the Emergency Department immediately re-evaluation. Referrals: IRVING CAMPBELL MD [Primary Care Provider] - Follow up tomorrow
[2018-07-30 18:24] VITALS: BP 141/56
== END 2018-07-30 17:30 | disposition home or self-care (01) ==
LOC: ER 15:54
DX: Z48.00 Encounter for change or removal of nonsurgical wound dressing (principal)
CPT/HCPCS: 99282

== ENCOUNTER → 2018-08-01 | Outpatient (CLI) | payer MEDICARE ==
[2018-08-01 13:01] LABS: ABSOLUTE EOSINOPHILS # (AUTO) 0.1 10^3/uL (0.0-0.6); ABSOLUTE LYMPHOCYTES (AUTO) 0.9 10^3/uL (0.5-4.7); ABSOLUTE MONOCYTES (AUTO) 0.7 10^3/uL (0.1-1.4); ABSOLUTE NEUT (AUTO) 7.7 10^3/uL (1.7-8.2); BASOPHILS % (AUTO) 0.2 % (0-2); EOSINOPHILS % (AUTO) 0.7 % (0-6); HEMOGLOBIN 12.2 g/dL (12.0-15.5); LYMPHOCYTES % (AUTO) 9.6 % (13-45); MEAN CORPUSCULAR HEMOGLOBIN 31.2 pg (27.0-33.4); MEAN CORPUSCULAR VOLUME 92 fl (80-97); MONOCYTES % (AUTO) 7.2 % (3-13); PLATELET COUNT 241 10^3/uL (150-450); RED BLOOD COUNT 3.93 10^6/uL (3.72-5.28); RED CELL DISTRIBUTION WIDTH 14.5 % (11.5-14.0); SEGMENTED NEUTROPHILS % (AUTO) 82.3 % (42-78); TOTAL CELLS COUNTED % (AUTO) 100 %; WHITE BLOOD COUNT 9.4 10^3/uL (4.0-10.5)
[2018-08-01 13:12] LABS: ABSOLUTE EOSINOPHILS # (AUTO) 0.1 10^3/uL (0.0-0.6); ABSOLUTE LYMPHOCYTES (AUTO) 0.9 10^3/uL (0.5-4.7); ABSOLUTE MONOCYTES (AUTO) 0.7 10^3/uL (0.1-1.4); ABSOLUTE NEUT (AUTO) 7.7 10^3/uL (1.7-8.2); BASOPHILS % (AUTO) 0.2 % (0-2); EOSINOPHILS % (AUTO) 0.7 % (0-6); HEMOGLOBIN 12.2 g/dL (12.0-15.5); LYMPHOCYTES % (AUTO) 9.6 % (13-45); MEAN CORPUSCULAR HEMOGLOBIN 31.2 pg (27.0-33.4); MEAN CORPUSCULAR VOLUME 92 fl (80-97); MONOCYTES % (AUTO) 7.2 % (3-13); PLATELET COUNT 241 10^3/uL (150-450); RED BLOOD COUNT 3.93 10^6/uL (3.72-5.28); RED CELL DISTRIBUTION WIDTH 14.5 % (11.5-14.0); SEGMENTED NEUTROPHILS % (AUTO) 82.3 % (42-78); TOTAL CELLS COUNTED % (AUTO) 100 %; WHITE BLOOD COUNT 9.4 10^3/uL (4.0-10.5)
[2018-08-01 13:35] LABS: ALANINE AMINOTRANSFERASE 49 U/L (9-52); ALBUMIN 3.8 g/dL (3.5-5.0); ALKALINE PHOSPHATASE 133 U/L (38-126); ANION GAP 11 (5-19); ASPARTATE AMINO TRANSFERASE 59 U/L (14-36); BILIRUBIN,DIRECT 0.4 mg/dL (0.0-0.4); BILIRUBIN,TOTAL 1.2 mg/dL (0.2-1.3); BLOOD UREA NITROGEN 58 mg/dL (7-20); C-REACTIVE PROTEIN 5.2 mg/L (<10.0); CALCIUM 9.5 mg/dL (8.4-10.2); CARBON DIOXIDE 24 mmol/L (22-30); CHLORIDE 105 mmol/L (98-107); GLUCOSE 243 mg/dL (75-110); POTASSIUM 4.9 mmol/L (3.6-5.0); SODIUM 139.6 mmol/L (137-145); TOTAL PROTEIN 6.7 g/dL (6.3-8.2)
[2018-08-01 13:46] LABS: ERYTHROCYTE SEDIMENTATION RATE 45 mm/hr (0-30)
--- NOTE | 2018-08-01 14:19 | RADIOLOGY REPORT (SQ) ---
EXAM DESCRIPTION: FOOT LEFT COMPLETE COMPLETED DATE/TIME: 08/01/2018 12:58 pm REASON FOR STUDY: PRESSURE ULCER OF LEFT HEEL, UNSTAGEABLE L89.620 PRESSURE ULCER OF LEFT HEEL, UNS TAGEABLE E61.1 IRON DEFICIENCY E55.9 VITAMIN D DEFICIENCY, UNSPECIFIED COMPARISON: 04/03/2018 NUMBER OF VIEWS: Three views. TECHNIQUE: AP, lateral and oblique radiographic images acquired of the left foot. LIMITATIONS: None. FINDINGS: MINERALIZATION: Osteoporotic, similar compared to 04/03/2018 BONES: No acute fracture or dislocation. No worrisome bone lesions. JOINTS: No effusions. SOFT TISSUES: There is a dorsal calcaneal skin ulcer outlined by radiopaque ointment in the ulcer. N o adjacent aggressive bony erosions of the calcaneus to suggest active osteomyelitis. OTHER: No other significant finding. IMPRESSION: Dorsal calcaneal skin and soft tissue ulcer outlined with radiopaque ointment. No under lying aggressive bony demineralization of the calcaneus to suggest active osteomyelitis TECHNICAL DOCUMENTATION: JOB ID: [id number] [employer]- All Rights Reserved Reading location - IP/workstation name: [facility]
== END ==
LOC: OD 12:26
PROVIDERS: ATTEND Nurse Practitioner
DX: L89.620 Pressure ulcer of left heel, unstageable (principal); E61.1 Iron deficiency; E55.9 Vitamin D deficiency, unspecified
CPT/HCPCS: 36415; 80053; 82306; 85025; 85652; 86140

== ENCOUNTER → 2018-08-30 | Outpatient (CLI) | payer MEDICARE ==
[2018-08-30 09:36] LABS: ABSOLUTE EOSINOPHILS # (AUTO) 0.1 10^3/uL (0.0-0.6); ABSOLUTE LYMPHOCYTES (AUTO) 0.7 10^3/uL (0.5-4.7); ABSOLUTE MONOCYTES (AUTO) 0.5 10^3/uL (0.1-1.4); ABSOLUTE NEUT (AUTO) 3.9 10^3/uL (1.7-8.2); BASOPHILS % (AUTO) 0.7 % (0-2); EOSINOPHILS % (AUTO) 2.4 % (0-6); HEMATOCRIT 30.7 % (36.0-47.0); HEMOGLOBIN 10.4 g/dL (12.0-15.5); MEAN CORPUSCULAR HGB CONC 33.7 g/dL (32.0-36.0); MEAN CORPUSCULAR VOLUME 92 fl (80-97); MONOCYTES % (AUTO) 9.5 % (3-13); PLATELET COUNT 197 10^3/uL (150-450); RED BLOOD COUNT 3.34 10^6/uL (3.72-5.28); RED CELL DISTRIBUTION WIDTH 15.1 % (11.5-14.0); SEGMENTED NEUTROPHILS % (AUTO) 74.4 % (42-78); TOTAL CELLS COUNTED % (AUTO) 100 %; WHITE BLOOD COUNT 5.3 10^3/uL (4.0-10.5)
== END ==
LOC: OD 09:04
PROVIDERS: ATTEND Pain Medicine Interventional Pain Medicine
DX: R23.3 Spontaneous ecchymoses (principal)
CPT/HCPCS: 36415; 85025

== ENCOUNTER → 2018-09-11 | Outpatient (CLI) | payer MEDICARE ==
[2018-09-11 11:30] LABS: ALANINE AMINOTRANSFERASE 36 U/L (9-52); ALBUMIN 3.8 g/dL (3.5-5.0); ALKALINE PHOSPHATASE 141 U/L (38-126); ANION GAP 8 (5-19); ASPARTATE AMINO TRANSFERASE 42 U/L (14-36); BILIRUBIN,DIRECT 0.3 mg/dL (0.0-0.4); BILIRUBIN,TOTAL 0.9 mg/dL (0.2-1.3); BLOOD UREA NITROGEN 33 mg/dL (7-20); CALCIUM 9.4 mg/dL (8.4-10.2); CARBON DIOXIDE 27 mmol/L (22-30); CHLORIDE 106 mmol/L (98-107); GLUCOSE 129 mg/dL (75-110); POTASSIUM 4.8 mmol/L (3.6-5.0); TOTAL PROTEIN 6.3 g/dL (6.3-8.2)
== END ==
LOC: OD 10:30
PROVIDERS: ATTEND Internal Medicine Cardiovascular Disease
DX: I48.0 Paroxysmal atrial fibrillation (principal); R94.5 Abnormal results of liver function studies
CPT/HCPCS: 36415; 80048; 80076; 84443

== ENCOUNTER → 2018-11-29 | Outpatient (CLI) | payer MEDICARE ==
[2018-11-29 11:04] LABS: ALANINE AMINOTRANSFERASE 45 U/L (9-52); ALBUMIN 3.8 g/dL (3.5-5.0); ALKALINE PHOSPHATASE 126 U/L (38-126); ANION GAP 8 (5-19); ASPARTATE AMINO TRANSFERASE 72 U/L (14-36); BILIRUBIN,DIRECT 0.4 mg/dL (0.0-0.4); BILIRUBIN,TOTAL 1.1 mg/dL (0.2-1.3); BLOOD UREA NITROGEN 28 mg/dL (7-20); CALCIUM 10.1 mg/dL (8.4-10.2); CARBON DIOXIDE 26 mmol/L (22-30); CHLORIDE 105 mmol/L (98-107); CHOLESTEROL 125.04 mg/dL (0-200); GLUCOSE 154 mg/dL (75-110); POTASSIUM 4.8 mmol/L (3.6-5.0); SODIUM 139.2 mmol/L (137-145); TOTAL PROTEIN 6.5 g/dL (6.3-8.2); TRIGLYCERIDES 154 mg/dL (<150)
[2018-11-29 11:15] LABS: DIRECT LDL 53 mg/dL (<100)
[2018-11-29 11:17] LABS: VLDL CHOLESTEROL 30.8 mg/dL (10-31)
== END ==
LOC: OD 08:30
PROVIDERS: ATTEND Physician Assistant
DX: E78.2 Mixed hyperlipidemia (principal); I48.0 Paroxysmal atrial fibrillation; R94.6 Abnormal results of thyroid function studies; Z79.899 Other long term (current) drug therapy
CPT/HCPCS: 36415; 80048; 80061; 80076; 83735; 84443

== ENCOUNTER → 2019-01-08 | Outpatient (CLI) | payer MEDICARE ==
[2019-01-08 10:16] LABS: ANION GAP 10 (5-19); BLOOD UREA NITROGEN 34 mg/dL (7-20); CALCIUM 10.1 mg/dL (8.4-10.2); CARBON DIOXIDE 27 mmol/L (22-30); CHLORIDE 105 mmol/L (98-107); GLUCOSE 151 mg/dL (75-110); POTASSIUM 4.7 mmol/L (3.6-5.0)
== END ==
LOC: OD 09:08
PROVIDERS: ATTEND Physician Assistant
DX: N18.3 Chronic kidney disease, stage 3 (moderate) (principal)
CPT/HCPCS: 36415; 80048

== ENCOUNTER → 2019-01-29 | Outpatient (CLI) | payer MEDICARE ==
--- NOTE | 2019-01-29 13:41 | RADIOLOGY REPORT (SQ) ---
EXAM DESCRIPTION: MRI HEAD WITHOUT COMPLETED DATE/TIME: 01/29/2019 1:31 pm REASON FOR STUDY: I63.9 CEREBRAL INFARCTION, UNSPECIFIED I63.9 CEREBRAL INFARCTION, UNSPECIFIED COMPARISON: None. TECHNIQUE: Multiplanar imaging includes non-contrasted T1, T2, FLAIR, and diffusion with ADC map seq uences. Images stored on PACS. LIMITATIONS: None. FINDINGS: ANATOMY: No anomalies. Normal vascular flow voids. Pituitary fossa normal. CSF SPACES: Atrophy induced prominence of ventricles and CSF spaces. CEREBRUM: High signal intensity lesions scattered throughout the white matter on FLAIR imaging with d istribution suggesting micro-vascular ischemic changes. No evidence of hemorrhage, mass, or extraaxi al fluid collection. POSTERIOR FOSSA: No signal alteration. No hemorrhage. No edema, masses or mass effect. Internal bret tory canals, cerebello-pontine angles, mastoids normal. DIFFUSION IMAGING: Negative for acute or sub-acute infarction. ORBITS: No masses. Globes normal. PARANASAL SINUSES: No fluid levels. Mucosa normal. OTHER: No other significant finding. IMPRESSION: Chronic ischemic changes. EVIDENCE OF ACUTE STROKE: NO. TECHNICAL DOCUMENTATION: JOB ID: [id number] [employer]- All Rights Reserved Reading location - IP/workstation name: [email or web address]
--- NOTE | 2019-01-29 14:09 | RADIOLOGY REPORT (SQ) ---
EXAM DESCRIPTION: MRA NECK WITHOUT COMPLETED DATE/TIME: 01/29/2019 1:31 pm REASON FOR STUDY: I63.9 CEREBRAL INFARCTION, UNSPECIFIED I63.9 CEREBRAL INFARCTION, UNSPECIFIED COMPARISON: None. TECHNIQUE: Axial 2-D volume acquisition imaging through the extracranial carotid and vertebral arter ies with reformatting using 3-D MIPS. LIMITATIONS: Patient motion. FINDINGS: RIGHT CAROTID ARTERY: No stenosis or occlusive changes. Limited visualization of the orig in. LEFT CAROTID ARTERY: No stenosis or occlusive changes. Limited visualization of the origin. VERTEBRAL ARTERY: The extracranial portions of the vertebral basilar system are preserved without james nosis. No aneurysmal dilatation or dissection is seen. OTHER: No other significant finding. IMPRESSION: NO SIGNIFICANT STENOSIS. COMMENT: Quality ID #[id number]: Measurements of distal internal carotid diameter were used as the denomin ator for stenosis measurement. TECHNICAL DOCUMENTATION: JOB ID: [id number] [employer]- All Rights Reserved Reading location - IP/workstation name: [email or web address]
== END ==
LOC: RAD 12:27
PROVIDERS: ATTEND Family Medicine
DX: I63.9 Cerebral infarction, unspecified (principal)
CPT/HCPCS: 70547; 70551

== ENCOUNTER 2019-02-06 20:08 | Emergency (ER) | payer MEDICARE ==
[2019-02-06 21:26] LABS: ABSOLUTE BASOPHILS # (AUTO) 0.1 10^3/uL (0.0-0.2); ABSOLUTE EOSINOPHILS # (AUTO) 0.4 10^3/uL (0.0-0.6); ABSOLUTE LYMPHOCYTES (AUTO) 1.2 10^3/uL (0.5-4.7); ABSOLUTE MONOCYTES (AUTO) 0.5 10^3/uL (0.1-1.4); ABSOLUTE NEUT (AUTO) 3.5 10^3/uL (1.7-8.2); EOSINOPHILS % (AUTO) 7.3 % (0-6); HEMATOCRIT 32.2 % (36.0-47.0); LYMPHOCYTES % (AUTO) 21.7 % (13-45); MEAN CORPUSCULAR HEMOGLOBIN 31.1 pg (27.0-33.4); MEAN CORPUSCULAR VOLUME 91 fl (80-97); MONOCYTES % (AUTO) 9.5 % (3-13); PLATELET COUNT 176 10^3/uL (150-450); RED BLOOD COUNT 3.52 10^6/uL (3.72-5.28); RED CELL DISTRIBUTION WIDTH 13.7 % (11.5-14.0); SEGMENTED NEUTROPHILS % (AUTO) 60.5 % (42-78); TOTAL CELLS COUNTED % (AUTO) 100 %; WHITE BLOOD COUNT 5.7 10^3/uL (4.0-10.5)
[2019-02-06 21:37] LABS: ALANINE AMINOTRANSFERASE 37 U/L (9-52); ALBUMIN 3.7 g/dL (3.5-5.0); ALKALINE PHOSPHATASE 134 U/L (38-126); ANION GAP 9 (5-19); ASPARTATE AMINO TRANSFERASE 40 U/L (14-36); BILIRUBIN,DIRECT 0.3 mg/dL (0.0-0.4); BILIRUBIN,TOTAL 0.9 mg/dL (0.2-1.3); BLOOD UREA NITROGEN 24 mg/dL (7-20); CALCIUM 9.6 mg/dL (8.4-10.2); CARBON DIOXIDE 25 mmol/L (22-30); CHLORIDE 107 mmol/L (98-107); GLUCOSE 150 mg/dL (75-110); POTASSIUM 4.1 mmol/L (3.6-5.0); SODIUM 140.5 mmol/L (137-145); TOTAL PROTEIN 6.2 g/dL (6.3-8.2)
--- NOTE | 2019-02-06 21:46 | RADIOLOGY REPORT (SQ) ---
CT HEAD WITHOUT IV CONTRAST HISTORY: Confusion. COMPARISON: 01/29/2019 TECHNIQUE: CT scan of the brain without IV contrast. This exam was performed according to our departmental dose-optimization program, which includes automated exposure control, adjustment of the mA and/or kV according to patient size and/or use of iterative reconstruction technique. FINDINGS: Diffuse involutional changes are present. There are scattered areas of hypoattenuation within the periventricular white matter, which likely represent chronic microvascular ischemia. No evidence of acute infarction, intracranial hemorrhage, extra-axial fluid collection, or midline shift. Left maxillary sinus mucosal disease. No depressed skull fracture. IMPRESSION: 1. No acute intracranial findings. 2. Senescent changes with chronic microvascular ischemia.
--- NOTE | 2019-02-06 21:50 | RADIOLOGY REPORT (SQ) ---
XR ABDOMEN SUPINE AND ERECT WITH CHEST (ABD ACUTE SERIES) HISTORY: Abdominal cramping. Nausea. COMPARISON: None. FINDINGS: There is a nonobstructive bowel gas pattern. No intraperitoneal free air or air-fluid levels are visualized on the upright view. Scarring at the left lung base. There are no acute bony findings. IMPRESSION: Normal bowel gas pattern.
--- NOTE | 2019-02-07 01:42 | ER Document Report ---
ED General - General Chief Complaint: Abdominal Pain Stated Complaint: STOMACH PAIN Time Seen by Provider: 02/06/19 20:49 Primary Care Provider: СВЕТЛАНА HERNANDEZ MD [ACTIVE STAFF] - Follow up in 3-5 days IRVING CAMPBELL MD [Primary Care Provider] - Follow up as needed Notes: Patient is a 83-year-old female with history of constipation that presents to the emergency department for chief complaint of abdominal pain. History provided mainly by the patient's daughters at bedside as she has memory issues. Patient apparently is complaining of some abdominal pain yesterday, she did have a watery bowel movement yesterday, but typically has constipation which she figure that which she had because she had not been taking her medication she takes for IBS and constipation nor she taken her gas medication which typically does seem to help her. She is been refusing her medications more recently. She apparently insisted that she come to the hospital today because the pain seemed to be different. She has not had fevers, vomiting, nausea, dysuria or hematuria she just recently finished antibiotics for urinary tract infection. Past Medical History: Chronic kidney disease, IBS with constipation, chronic anemia Past Surgical History: Denies recent or pertinent surgical history Social History: Lives at home with daughter, primary care physicians Dr. Noel Family History: Reviewed and noncontributory for presenting illness Allergies: Reviewed, see documented allergy list. REVIEW OF SYSTEMS: Other than noted above, the 12 point review of systems was reviewed with the patient and were negative, all pertinent findings are included in the HPI. PHYSICAL EXAMINATION: Vital signs reviewed, nursing noted reviewed. GENERAL: Elderly female, no acute distress HEAD: Atraumatic, normocephalic. EYES: Eyes appear normal, extraocular movements intact, sclera anicteric, conjunctiva are normal. ENT: nares patent, oropharynx clear without exudates. Moist mucous membranes. NECK: Normal range of motion, supple without lymphadenopathy LUNGS: Breath sounds clear to auscultation bilaterally and equal. No wheezes rales or rhonchi. HEART: Regular rate and rhythm without murmurs ABDOMEN: Soft, nontender, normoactive bowel sounds. No rebound, guarding, or rigidity. No masses appreciated. EXTREMITIES: Nontender, good range of motion, no pitting or edema. NEUROLOGICAL: No focal neurological deficits. Moves all extremities spontaneously Motor and sensory grossly intact on exam. PSYCH: Normal mood, normal affect. SKIN: Warm, Dry, normal turgor, no rashes or lesions noted on exposed skin TRAVEL OUTSIDE OF THE [place] IN LAST 30 DAYS: No - Related Data Allergies/Adverse Reactions: JUDI Inhibitors Allergy (Verified 04/06/18 16:00) azithromycin Allergy (Verified 04/06/18 16:00) cephalexin Allergy (Verified 04/06/18 16:00) chlorthalidone Allergy (Verified 04/06/18 16:00) doxycycline Allergy (Verified 04/06/18 16:00) hydrochlorothiazide Allergy (Verified 04/06/18 16:00) hydrocodone Allergy (Verified 04/06/18 16:00) hydromorphone [From Dilaudid] Allergy (Verified 04/06/18 16:00) metformin Allergy (Verified 04/06/18 16:00) nitrofurantoin [From Macrobid] Allergy (Verified 04/06/18 16:00) promethazine Allergy (Verified 04/06/18 16:00) lisenoys Allergy (Uncoded 04/06/18 16:00) Past Medical History - Social History Smoking Status: Never Smoker Frequency of alcohol use: None Drug Abuse: None Family History: Reviewed & Not Pertinent Patient has suicidal ideation: No Patient has homicidal ideation: No - Past Medical History Cardiac Medical History: Reports: Hx Atrial Fibrillation, Hx Coronary Artery Disease, Hx Heart Attack - NSTEMI, Hx Hypercholesterolemia, Hx Hypertension Pulmonary Medical History: Reports: Hx COPD Endocrine Medical History: Denies: Hx Diabetes Mellitus Type 2 Renal/ Medical History: Denies: Hx Peritoneal Dialysis Malignancy Medical History: Reports: Hx Breast Cancer GI Medical History: Reports: Hx Diverticulitis, Hx Gastroesophageal Reflux Disease, Hx Irritable Bowel Musculoskeletal Medical History: Reports Hx Arthritis Psychiatric Medical History: Reports: Hx Depression - anxiety Past Surgical History: Reports: Hx Cardiac Catheterization - 2 stent, Hx Cardiac Surgery - double bypass, 2 stents, Hx Cholecystectomy, Hx Coronary Artery Bypass Graft, Hx Open Heart Surgery, Other - conoscopy, EGD - Immunizations Hx Diphtheria, Pertussis, Tetanus Vaccination: Yes Physical Exam - Vital signs Vitals: Temp Pulse Resp BP Pulse Ox 98.5 F 66 16 157/96 H 96 02/06/19 20:30 02/06/19 20:30 02/06/19 20:30 02/06/19 20:30 02/06/19 20:30 Course - Re-evaluation Re-evalutation: Patient seen and examined vital signs reviewed. Laboratory data and/or imaging were ordered as appropriate for the patient's presenting symptoms and complaint, with consideration of any critical or life threatening conditions that may be associated with their obtained history and exam as noted above. 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 Evaluation was most consistent with constipation, abdominal pain Results were discussed with the patient at this point, after careful consideration I feel that that patient can be discharged from the emergency department, the patient was educated treatments and reasons to return to the emergency department based on their presumed diagnosis as noted above, they were advised to followup with a primary care physician in 2-3 days. Patient was agreeable to plan of care. *Note is created using voice recognition software and may contain spelling, syntax or grammatical errors. Laboratory 02/06/19 02/06/19 21:07 21:07 WBC 5.7 RBC 3.52 L Hgb 11.0 L Hct 32.2 L MCV 91 MCH 31.1 MCHC 34.0 RDW 13.7 Plt Count 176 Seg Neutrophils % 60.5 Lymphocytes % 21.7 Monocytes % 9.5 Eosinophils % 7.3 H Basophils % 1.0 Absolute Neutrophils 3.5 Absolute Lymphocytes 1.2 Absolute Monocytes 0.5 Absolute Eosinophils 0.4 Absolute Basophils 0.1 Sodium 140.5 Potassium 4.1 Chloride 107 Carbon Dioxide 25 Anion Gap 9 BUN 24 H Creatinine 1.30 H Est GFR ( Amer) 47 L Est GFR (Non-Af Amer) 39 L Glucose 150 H Calcium 9.6 Total Bilirubin 0.9 Direct Bilirubin 0.3 Neonat Total Bilirubin Not Reportable Neonat Direct Bilirubin Not Reportable Neonat Indirect Bili Not Reportable AST 40 H ALT 37 Alkaline Phosphatase 134 H Total Protein 6.2 L Albumin 3.7 Lipase 147.0 Acute Abdomen Series 02/06/19 20:49 IMPRESSION: Normal bowel gas pattern. Head CT 02/06/19 20:52 IMPRESSION: 1. No acute intracranial findings. 2. Senescent changes with chronic microvascular ischemia. - Vital Signs Vital signs: Temp Pulse Resp BP Pulse Ox 97.5 F 59 L 19 166/90 H 98 02/07/19 01:59 02/07/19 01:59 02/07/19 01:59 02/07/19 01:59 02/07/19 01:59 - Laboratory Result Diagrams: 02/06/19 21:07 02/06/19 21:07 Laboratory results interpreted by me: 02/06/19 02/06/19 21:07 21:07 RBC 3.52 L Hgb 11.0 L Hct 32.2 L Eosinophils % 7.3 H BUN 24 H Creatinine 1.30 H Est GFR ( Amer) 47 L Est GFR (Non-Af Amer) 39 L Glucose 150 H AST 40 H Alkaline Phosphatase 134 H Total Protein 6.2 L Discharge - Discharge Clinical Impression: Abdominal pain Qualifiers: Abdominal location: unspecified location Qualified Code(s): R10.9 - Unspecified abdominal pain Condition: Stable Disposition: HOME, SELF-CARE Instructions: Abdominal Pain ([facility]) Additional Instructions: Please follow-up with your 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 Referrals: IRVING CAMPBELL MD [Primary Care Provider] - Follow up as needed СВЕТЛАНА HERNANDEZ MD [ACTIVE STAFF] - Follow up in 3-5 days
[2019-02-07 02:05] VITALS: BP 166/90
== END 2019-02-07 02:05 | disposition home or self-care (01) ==
LOC: ER 20:08
DX: K58.1 Irritable bowel syndrome with constipation (principal); T50.906A Underdosing of unspecified drugs, medicaments and biological substances, initial encounter; Z91.128 Patient's intentional underdosing of medication regimen for other reason; Z91.14 Patient's other noncompliance with medication regimen; R10.9 Unspecified abdominal pain; I67.82 Cerebral ischemia; I25.10 Atherosclerotic heart disease of native coronary artery without angina pectoris; I10 Essential (primary) hypertension; Z87.440 Personal history of urinary (tract) infections; Z88.8 Allergy status to other drugs, medicaments and biological substances; Z88.1 Allergy status to other antibiotic agents; Z88.5 Allergy status to narcotic agent; Z85.3 Personal history of malignant neoplasm of breast; Z95.1 Presence of aortocoronary bypass graft; Z95.5 Presence of coronary angioplasty implant and graft
CPT/HCPCS: 36415; 70450; 74022; 80053; 83690; 85025; 99284

== ENCOUNTER 2019-03-11 09:49 | Emergency (ER) | payer MEDICARE ==
[2019-03-11 10:03] VITALS: BP 117/64
[2019-03-11] MEDS ORDERED: ACETAMINOPHEN 325 MG TABLET PO ONE (10:25)
--- NOTE | 2019-03-11 10:27 | ER Document Report ---
ED Medical Screen (RME) - General Chief Complaint: Back Pain Stated Complaint: BACK PAIN Time Seen by Provider: 03/11/19 10:21 Primary Care Provider: ELVIS WEINBERG PA-C [Primary Care Provider] - Follow up as needed Mode of Arrival: Wheelchair Information source: Patient, Relative Notes: This 83-year-old with chronic back pain presents today with severe back pain. Patient is in pain management. Reports she had a shot by Dr. Lilly in her back last Monday. She started complaining of severe pain was brought to our emergency department on Monday treated with Tylenol and seemed to get better. She returns today because the pain is worse and she started to feel numb in her feet. No other symptoms such as fever vomiting diarrhea. Reports the pain is more in the sacral area. I have greeted and performed a rapid initial assessment of this patient. A comprehensive ED assessment and evaluation of the patient, analysis of test results and completion of the medical decision making process will be conducted by additional ED providers. Dictation of this chart was performed using voice recognition software; therefore, there may be some unintended grammatical errors. TRAVEL OUTSIDE OF THE [place] IN LAST 30 DAYS: No - Related Data Allergies/Adverse Reactions: JUDI Inhibitors Allergy (Verified 03/11/19 09:50) azithromycin Allergy (Verified 03/11/19 09:50) cephalexin Allergy (Verified 03/11/19 09:50) chlorthalidone Allergy (Verified 03/11/19 09:50) doxycycline Allergy (Verified 03/11/19 09:50) hydrochlorothiazide Allergy (Verified 03/11/19 09:50) hydrocodone Allergy (Verified 03/11/19 09:50) hydromorphone [From Dilaudid] Allergy (Verified 03/11/19 09:50) metformin Allergy (Verified 03/11/19 09:50) nitrofurantoin [From Macrobid] Allergy (Verified 03/11/19 09:50) promethazine Allergy (Verified 03/09/19 11:27) lisenoys Allergy (Uncoded 03/09/19 11:27) Past Medical History - Past Medical History Cardiac Medical History: Reports: Hx Atrial Fibrillation, Hx Coronary Artery Disease, Hx Heart Attack - NSTEMI, Hx Hypercholesterolemia, Hx Hypertension Pulmonary Medical History: Reports: Hx COPD Endocrine Medical History: Denies: Hx Diabetes Mellitus Type 2 Renal/ Medical History: Denies: Hx Peritoneal Dialysis Malignancy Medical History: Reports: Hx Breast Cancer GI Medical History: Reports: Hx Diverticulitis, Hx Gastroesophageal Reflux Disease, Hx Irritable Bowel Musculoskeltal Medical History: Reports Hx Arthritis Psychiatric Medical History: Reports: Hx Depression - anxiety Past Surgical History: Reports: Hx Cardiac Catheterization - 2 stent, Hx Cardiac Surgery - double bypass, 2 stents, Hx Cholecystectomy, Hx Coronary Artery Bypass Graft, Hx Open Heart Surgery, Other - conoscopy, EGD - Immunizations Hx Diphtheria, Pertussis, Tetanus Vaccination: Yes History of Influenza Vaccine for 05/2017 - 10/2017 Season: Yes Influenza Administration Date for 05/2017 - 10/2017 Season: 05/28/17 Physical Exam - Vital signs Vitals: Temp Pulse Resp BP Pulse Ox 97.9 F 59 L 22 H 117/64 96 03/11/19 10:01 03/11/19 10:01 03/11/19 10:01 03/11/19 10:01 03/11/19 10:01 Course - Vital Signs Vital signs: Temp Pulse Resp BP Pulse Ox 97.9 F 59 L 22 H 117/64 96 03/11/19 10:01 03/11/19 10:01 03/11/19 10:01 03/11/19 10:01 03/11/19 10:01 Doctor's Discharge - Discharge Referrals: ELVIS WEINBERG PA-C [Primary Care Provider] - Follow up as needed
[2019-03-11 11:05] LABS: ABSOLUTE LYMPHOCYTES (AUTO) 1.1 10^3/uL (0.5-4.7); ABSOLUTE MONOCYTES (AUTO) 0.6 10^3/uL (0.1-1.4); BASOPHILS % (AUTO) 0.2 % (0-2); EOSINOPHILS % (AUTO) 0.3 % (0-6); HEMATOCRIT 35.4 % (36.0-47.0); HEMOGLOBIN 11.8 g/dL (12.0-15.5); MEAN CORPUSCULAR HEMOGLOBIN 30.5 pg (27.0-33.4); MEAN CORPUSCULAR HGB CONC 33.3 g/dL (32.0-36.0); MEAN CORPUSCULAR VOLUME 91 fl (80-97); MONOCYTES % (AUTO) 9.3 % (3-13); PLATELET COUNT 216 10^3/uL (150-450); RED BLOOD COUNT 3.88 10^6/uL (3.72-5.28); SEGMENTED NEUTROPHILS % (AUTO) 74.2 % (42-78); TOTAL CELLS COUNTED % (AUTO) 100 %; WHITE BLOOD COUNT 6.7 10^3/uL (4.0-10.5)
[2019-03-11 11:26] LABS: ALANINE AMINOTRANSFERASE 34 U/L (9-52); ALBUMIN 4.2 g/dL (3.5-5.0); ALKALINE PHOSPHATASE 137 U/L (38-126); ANION GAP 11 (5-19); ASPARTATE AMINO TRANSFERASE 38 U/L (14-36); BILIRUBIN,DIRECT 0.3 mg/dL (0.0-0.4); BILIRUBIN,TOTAL 1.4 mg/dL (0.2-1.3); BLOOD UREA NITROGEN 29 mg/dL (7-20); CALCIUM 9.6 mg/dL (8.4-10.2); CARBON DIOXIDE 27 mmol/L (22-30); CHLORIDE 103 mmol/L (98-107); GLUCOSE 205 mg/dL (75-110); POTASSIUM 4.1 mmol/L (3.6-5.0); SODIUM 140.5 mmol/L (137-145); TOTAL PROTEIN 7.1 g/dL (6.3-8.2)
--- NOTE | 2019-03-11 13:09 | RADIOLOGY REPORT (SQ) ---
EXAM DESCRIPTION: SACRUM AND COCCYX COMPLETED DATE/TIME: 03/11/2019 12:41 pm REASON FOR STUDY: back pain severe COMPARISON: None. NUMBER OF VIEWS: Three views. TECHNIQUE: AP, lateral, and tilt views of the sacrum and coccyx. LIMITATIONS: None. FINDINGS: MINERALIZATION: Normal. BONES: No acute fracture or dislocation. No worrisome bone lesions. SOFT TISSUES: No soft tissue swelling. No foreign body. OTHER: No other significant finding. IMPRESSION: No acute findings. TECHNICAL DOCUMENTATION: JOB ID: [id number] 2010 [email or web address]- All Rights Reserved Reading location - IP/workstation name: [email or web address]
== END 2019-03-11 15:59 | disposition left against medical advice (07) ==
LOC: ER 09:49
DX: M54.9 Dorsalgia, unspecified (principal); I48.91 Unspecified atrial fibrillation; I25.10 Atherosclerotic heart disease of native coronary artery without angina pectoris; E78.00 Pure hypercholesterolemia, unspecified; I10 Essential (primary) hypertension; Z85.3 Personal history of malignant neoplasm of breast; Z88.3 Allergy status to other anti-infective agents; Z95.1 Presence of aortocoronary bypass graft; Z90.49 Acquired absence of other specified parts of digestive tract; I25.2 Old myocardial infarction
CPT/HCPCS: 99283; 36415; 85025; 80053; 72220; A9270

== ENCOUNTER → 2020-07-02 | Outpatient (CLI) | payer MEDICARE ==
--- NOTE | 2020-07-02 14:34 | RADIOLOGY REPORT (SQ) ---
EXAM DESCRIPTION: CT ABD/PELVIS NO ORAL OR IV IMAGES COMPLETED DATE/TIME: 07/02/2020 10:07 am REASON FOR STUDY: ABDOMINAL PAIN R10.84 GENERALIZED ABDOMINAL PAIN COMPARISON: 01/29/2018 TECHNIQUE: CT scan of the abdomen and pelvis performed without intravenous or oral contrast. Images reviewed with lung, soft tissue, and bone windows. Reconstructed coronal and sagittal MPR images revi ewed. All images stored on PACS. All CT scanners at this facility use dose modulation, iterative reconstruction, and/or weight based d osing when appropriate to reduce radiation dose to as low as reasonably achievable (ALARA). [facility]: Dose Right [facility]: CareDose [facility]: Dose Right [facility]: Teradose 4D [facility]: Flux RADIATION DOSE: CT Rad equipment meets quality standard of care and radiation dose reduction techniq ues were employed. CTDIvol: 3.8 mGy. DLP: 171 mGy-cm.mGy. LIMITATIONS: None. FINDINGS: LOWER CHEST: No significant findings. No nodules or infiltrates. NON-CONTRASTED LIVER, SPLEEN, ADRENALS: Evaluation limited by lack of IV contrast. No identified sign ificant masses. PANCREAS: No masses. No peripancreatic inflammatory changes. GALLBLADDER: Surgically absent. RIGHT KIDNEY AND URETER: No suspicious masses. Assessment limited by lack of IV contrast. No signif icant calcifications. No hydronephrosis or hydroureter. LEFT KIDNEY AND URETER: No suspicious masses. Assessment limited by lack of IV contrast. No signifi cant calcifications. No hydronephrosis or hydroureter. AORTA AND RETROPERITONEUM: No aneurysm. No retroperitoneal masses or adenopathy. BOWEL AND PERITONEAL CAVITY: Mild sigmoid diverticulosis with no associated inflammation. No obvious bowel mass. APPENDIX: Surgically absent. PELVIS, BLADDER, AND ABDOMINAL WALL:No abnormal masses. No free fluid. Bladder normal. 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 Grade 1 anterolisthesis of L4 on L5. OTHER: No other significant finding. IMPRESSION: Mild diverticulosis coli. Osseous findings as described. No acute findings in the abdo men or pelvis. COMMENT: Quality ID # [id number]: Final reports with documentation of one or more dose reduction techniques (e.g., Automated exposure control, adjustment of the mA and/or kV according to patient size, use of iterative reconstruction technique) TECHNICAL DOCUMENTATION: JOB ID: [id number] 2010 [employer]- All Rights Reserved Reading location - IP/workstation name: [email or web address]
== END ==
LOC: RAD 09:56
PROVIDERS: ATTEND Internal Medicine Gastroenterology
DX: K57.30 Diverticulosis of large intestine without perforation or abscess without bleeding (principal); R10.84 Generalized abdominal pain
CPT/HCPCS: 74176